=== PATIENT | male | born 1965 | race African-American/Black ===

== ENCOUNTER 2019-07-16 09:42 | Inpatient (IN) | payer OTHER ==
[~2019-07-16] VITALS: Ht 182.9 cm; Wt 111.0 kg
[2019-07-16] VITALS (15 sets, daily range): BP systolic 101–128; BP diastolic 64–81
[~2019-07-16 09:42] MED LIST: ATOR20TA PO; Aspirin PO; INSU100I17 SQ; INSU100I27 SQ; LISI5TAB PO; METF500T PO
--- NOTE | 2019-07-16 10:13 | RAD ---
PORTABLE CHEST 1V 07/16/2019 9:53 AM INDICATION: Fever, cough and shortness of air COMPARISON: None available TECHNIQUE: Portable frontal view of the chest is provided. FINDINGS: The cardiomediastinal silhouette is within normal limits. Patchy consolidative changes are identified involving the left upper lobe and lingula with likely involvement of the left lower lobe. No pleural effusions, pulmonary vascular congestion or pneumothorax. No suspicious osseous abnormality. IMPRESSION: Consolidative processes within the left upper lobe, lingula and possibly the left lower lobe may represent multifocal pneumonia. Recommend short term follow-up radiographs to ensure resolution. Electronically signed by: Natty Valencia MD (07/16/2019 10:09 AM) [facility]
[2019-07-16] MEDS ORDERED: cefTRIAXone IV Push 1 GM VIAL. IVP ONE (10:15)
[2019-07-16] MEDS ORDERED: IV NORMAL SALINE 1000ML BAG 1,000 ML IV ONE (10:15)
[2019-07-16] MEDS ORDERED: ACETAMINOPHEN 500 MG TABLET PO ONE (10:15)
[2019-07-16] MEDS ORDERED: AZITHRMYCN 500MG IVPB FOR OMNI 250 ML IV ONE (10:15)
[2019-07-16] MEDS ORDERED: IBUPROFEN 400 MG TABLET. PO ONE ×2 (10:15→11:00)
[2019-07-16 10:42] LABS: BASO # 0.1 x10^3/uL (0.0-0.2); BASO % 1 % (0-3); EOS % 0 % (0-3); HEMATOCRIT 41.9 % (39.0-53.0); HEMOGLOBIN 14.7 g/dL (13.0-17.5); LYMPH # 0.9 x10^3/uL (1.0-4.8); LYMPH % 4 % (24-48); MEAN CORPUSCULAR HEMOGLOBIN 31 pg (25-35); MEAN CORPUSCULAR HGB CONC 35 g/dL (31-37); MEAN CORPUSCULAR VOLUME 89 fL (79-100); MONO # 0.9 x10^3/uL (0.0-1.1); MONO % 4 % (0-9); NEUT # 18.4 x10^3/uL (1.8-7.7); NEUT % 91 % (31-73); PLATELET COUNT 207 x10^3/uL (140-400); WHITE BLOOD COUNT 20.3 x10^3/uL (4.0-11.0)
--- NOTE | 2019-07-16 10:49 | PDOC1 ---
History and Physical Date of Admission Date of Admission DATE: 07/16/19 TIME: 10:46 Identification/Chief Complaint Chief Complaint seen in er with fever, cough 53 year old male who presented to ER by EMS due to left-sided chest pain since this morning. Patient had not been feeling well for the last 3-day with cough, fever and chill. // pain on the left side of chest, patient had not been able to take it medication for the last 3 days. history of hypertension diabetic. cxr concerning for pneumonia Past Medical History Past Medical History Past Medical History Cardiovascular: HTN Past Surgical History Past Surgical History TENDON SURGERY TO RIGHT HAND Family History Family History Reviewed,pertinent for DM in father Social History Smoke: <1 pack per day ALCOHOL: social Drugs: None Cardiovascular: HTN Family History Family History: Hypertension Social History Smoke: No ALCOHOL: none Drugs: None Current Medications Current Medications Current Medications Sodium Chloride 1,000 ml @ 1,000 mls/hr 1X ONCE IV Last administered on 07/16/19at 10:22; Start 07/16/19 at 10:15; Stop 07/16/19 at 11:14 Ceftriaxone Sodium (Rocephin) 1 gm 1X ONCE IVP Last administered on 07/16/19at 10:25; Start 07/16/19 at 10:15; Stop 07/16/19 at 10:17; Status DC Azithromycin 250 ml @ 250 mls/hr 1X ONCE IV Last administered on 07/16/19at 10:15; Start 07/16/19 at 10:15; Stop 07/16/19 at 11:14 Acetaminophen (Tylenol) 1,000 mg 1X ONCE PO Last administered on 07/16/19at 10:25; Start 07/16/19 at 10:15; Stop 07/16/19 at 10:17; Status DC Ibuprofen (Motrin) 800 mg 1X ONCE PO Last administered on 07/16/19at 10:25; Start 07/16/19 at 10:15; Stop 07/16/19 at 10:17; Status DC Active Scripts Active Glucophage (Metformin Hcl) 500 Mg Tablet 500 Mg PO BIDWMEALS Prinivil (Lisinopril) 5 Mg Tablet 10 Mg PO DAILY Levemir Flextouch (Insulin Detemir) 300 Units/3 Ml Insuln.pen 28 Units SQ QHS Novolog Flexpen (Insulin Aspart) 300 Units/3 Ml Insuln.pen 18 Units SQ TIDAC [Aspirin] 81 MG Tablet.dr 81 Mg PO DAILYWBKFT Lipitor (Atorvastatin Calcium) 20 Mg Tablet 20 Mg PO QHS Allergies Allergies: Coded Allergies: No Known Drug Allergies (Unverified , 08/02/14) ROS Review of System Review of Systems: Constitutional: Positive for fever or chills. [] Eyes: Denies change in visual acuity. [] HENT: Denies nasal congestion or sore throat. [] Respiratory: Positive for cough or shortness of breath. [] Cardiovascular: Positive for chest pain, no edema. [] GI: Denies abdominal pain, nausea, vomiting, bloody stools or diarrhea. [] : Denies dysuria. [] Musculoskeletal: Denies back pain or joint pain. [] Integument: Denies rash. [] Neurologic: Denies headache, focal weakness or sensory changes. [] Endocrine: Denies polyuria or polydipsia. [] Lymphatic: Denies swollen glands. [] Psychiatric: Denies depression or anxiety. [] 14 pt ros otherwise neg General: YES: Chills, Fatigue, Malaise ALLERGY AND IMMUNOLOGY: No: Hives, Insect Bite Sensitivity, Itchy/Watery Eyes, Nasal Congestion, Post Nasal Drip, Seasonal Allergies, Other Respiratory: YES: Cough, Shortness of breath, SOB with excertion Gastrointestinal: No Nausea, No Vomiting, No Abdominal Pain, No Diarrhea, No Constipation, No Melena, No Hematochezia, No Other Physical Exam Physical Exam Constitutional: Well developed, well nourished, mild acute distress, toxic appearance. [] HENT: Normocephalic, atraumatic, bilateral external ears normal, oropharynx moist, no oral exudates, nose normal. [] Eyes: PERRLA, EOMI, conjunctiva normal, no discharge. [] Neck: Normal range of motion, no tenderness, supple, no stridor. [] Cardiovascular:sinus tachycardia, regular rhythm, no murmur [] Lungs & Thorax: crackles at lung bases, air movement on left lung, tachypnic. Abdomen: Bowel sounds normal, soft, no tenderness, no masses, no pulsatile masses. [] Skin: Warm, dry, no erythema, no rash. [] Back: No tenderness, no CVA tenderness. [] Extremities: No tenderness, no cyanosis, no clubbing, ROM intact, no edema. [] Neurologic: Alert and oriented X 3, weak , normal motor function, normal sensory function, no focal deficits noted. [] Psychologic: Affect normal, judgment normal, mood normal. [] General: Cooperative, mild distress Abdomen: Soft Rectal Exam: not examined Extremities: No cyanosis Neuro: Cranial nerves 3-12 NL Labs Labs Laboratory Tests Test 07/16/19 10:15 White Blood Count 20.3 x10^3/uL (4.0-11.0) Red Blood Count 4.70 x10^6/uL (4.30-5.70) Hemoglobin 14.7 g/dL (13.0-17.5) Hematocrit 41.9 % (39.0-53.0) Mean Corpuscular Volume 89 fL (79-100) Mean Corpuscular Hemoglobin 31 pg (25-35) Mean Corpuscular Hemoglobin Concent 35 g/dL (31-37) Red Cell Distribution Width 13.0 % (11.5-14.5) Platelet Count 207 x10^3/uL (140-400) Neutrophils (%) (Auto) 91 % (31-73) Lymphocytes (%) (Auto) 4 % (24-48) Monocytes (%) (Auto) 4 % (0-9) Eosinophils (%) (Auto) 0 % (0-3) Basophils (%) (Auto) 1 % (0-3) Neutrophils # (Auto) 18.4 x10^3/uL (1.8-7.7) Lymphocytes # (Auto) 0.9 x10^3/uL (1.0-4.8) Monocytes # (Auto) 0.9 x10^3/uL (0.0-1.1) Eosinophils # (Auto) 0.0 x10^3/uL (0.0-0.7) Basophils # (Auto) 0.1 x10^3/uL (0.0-0.2) Laboratory Tests Test 07/16/19 10:15 White Blood Count 20.3 x10^3/uL (4.0-11.0) Red Blood Count 4.70 x10^6/uL (4.30-5.70) Hemoglobin 14.7 g/dL (13.0-17.5) Hematocrit 41.9 % (39.0-53.0) Mean Corpuscular Volume 89 fL (79-100) Mean Corpuscular Hemoglobin 31 pg (25-35) Mean Corpuscular Hemoglobin Concent 35 g/dL (31-37) Red Cell Distribution Width 13.0 % (11.5-14.5) Platelet Count 207 x10^3/uL (140-400) Neutrophils (%) (Auto) 91 % (31-73) Lymphocytes (%) (Auto) 4 % (24-48) Monocytes (%) (Auto) 4 % (0-9) Eosinophils (%) (Auto) 0 % (0-3) Basophils (%) (Auto) 1 % (0-3) Neutrophils # (Auto) 18.4 x10^3/uL (1.8-7.7) Lymphocytes # (Auto) 0.9 x10^3/uL (1.0-4.8) Monocytes # (Auto) 0.9 x10^3/uL (0.0-1.1) Eosinophils # (Auto) 0.0 x10^3/uL (0.0-0.7) Basophils # (Auto) 0.1 x10^3/uL (0.0-0.2) Images Images PORTABLE CHEST 1V 07/16/2019 9:53 AM INDICATION: Fever, cough and shortness of air COMPARISON: None available TECHNIQUE: Portable frontal view of the chest is provided. FINDINGS: The cardiomediastinal silhouette is within normal limits. Patchy consolidative changes are identified involving the left upper lobe and lingula with likely involvement of the left lower lobe. No pleural effusions, pulmonary vascular congestion or pneumothorax. No suspicious osseous abnormality. IMPRESSION: Consolidative processes within the left upper lobe, lingula and possibly the left lower lobe may represent multifocal pneumonia. Recommend short term follow-up radiographs to ensure resolution. Electronically signed by: Campbell Valencia MD (07/16/2019 10:09 AM) [facility] DICTATED and SIGNED BY: CAMPBELL VALENCIA MD DATE: 07/16/19 1009 VTE Prophylaxis Ordered VTE Prophylaxis Devices: No VTE Pharmacological Prophylaxi: Yes Assessment/Plan Assessment/Plan IMPRESSION: Consolidative processes within the left upper lobe, lingula and possibly the left lower lobe // multifocal pneumonia. acute hypoxic resp failure concern for COVID-19 during community pandemic acute renal failure fever SEPSIS Fever and leukocytosis Acute metabolic encephalopathy BERTIN Transaminitis Diabetes Hypertension Obesity Sleep apnea MILD EVEVATION TROPONIN I plan admit icu bed blood cultures pulm consult dvt prophylaxis o2 support covid 19 screen emperic iv rocephin, zithromax add iv zyvox consult nephrology urinary legionalla screen strep pneumonia AG URINARY ID CONSULT Cardiology consult trend troponin i 48 min cc time Justicifation of Admission Dx: Justifications for Admission: Justification of Admission Dx: Yes Respiratory Failure: Severe Resp Distress Aspiration Pneumonia: Hypoxemia Comminuty Aquired Pneumonia: Hypoxemia Chronic Renal Failure: Electrolyte Abnormality Sepsis: Altered Mental Status Acute COPD Exacerbation: Acute COPD Exacerbation [place]: Acute NSTEMI JERROD CAMPOS MD Jul 16, 2019 10:49
[2019-07-16] MEDS ORDERED: IV NORMAL SALINE 1000ML BAG 1,000 ML IV SCH ×2 (10:53→10:58)
--- NOTE | 2019-07-16 10:58 | PHYS DOC ---
Past Medical History Past Medical History: Diabetes-Type II, Hypertension Past Surgical History: No Surgical History Additional Past Surgical Histo: TENDON SURGERY TO RIGHT HAND Smoking Status: Former Smoker Alcohol Use: Occasionally Drug Use: None General Adult EDM: Chief Complaint: SHORTNESS OF BREATH HPI: HPI: Patient is a 53 year old male who presented to ER by EMS due to left-sided chest pain since this morning. Patient had not been feeling well for the last 3-day with cough, fever and chill. She said the pain on the left side of chest, patient had not been able to take it medication for the last 3 days. Patient has history of hypertension diabetic. Review of Systems: Review of Systems: Constitutional: Positive for fever or chills. [] Eyes: Denies change in visual acuity. [] HENT: Denies nasal congestion or sore throat. [] Respiratory: Positive for cough or shortness of breath. [] Cardiovascular: Positive for chest pain, no edema. [] GI: Denies abdominal pain, nausea, vomiting, bloody stools or diarrhea. [] : Denies dysuria. [] Musculoskeletal: Denies back pain or joint pain. [] Integument: Denies rash. [] Neurologic: Denies headache, focal weakness or sensory changes. [] Endocrine: Denies polyuria or polydipsia. [] Lymphatic: Denies swollen glands. [] Psychiatric: Denies depression or anxiety. [] Heart Score: HEART Score for Chest Pain: HEART Score for Chest Pain Response (Comments) Value History Moderately Suspicious 1 Age >45 - < 65 1 Risk Factors >3 Risk Factors or Hx CAD 2 Troponin >1-<3x Normal Limit 1 Total 5 Risk Factors: Risk Factors: DM, Current or recent (<one month) smoker, HTN, HLP, family history of CAD, obesity. Risk Scores: Score 0 - 3: 2.5% MACE over next 6 weeks - Discharge Home Score 4 - 6: 20.3% MACE over next 6 weeks - Admit for Clinical Observation Score 7 - 10: 72.7% MACE over next 6 weeks - Early Invasive Strategies Current Medications: Current Medications Medications (Trade) Dose Ordered Sig/Joan Start Time Stop Time Status Last Admin Dose Admin Acetaminophen (Tylenol) 1,000 mg 1X ONCE 07/16/19 10:15 07/16/19 10:17 DC 07/16/19 10:25 1,000 MG Al Hydroxide/Mg Hydroxide (Mylanta Plus Xs) 30 ml PRN DAILY PRN 07/16/19 11:00 UNV Albuterol/ Ipratropium (Duoneb) 3 ml Q4H 07/16/19 11:00 UNV Azithromycin 250 ml @ 250 mls/hr DAILY07 07/17/19 07:00 UNV Ceftriaxone Sodium (Rocephin) 1 gm DAILY07 07/17/19 07:00 UNV Clonidine HCl (Catapres) 0.1 mg PRN Q6HRS PRN 07/16/19 11:00 UNV Docusate Sodium (Colace) 100 mg PRN BID PRN 07/16/19 11:00 UNV Enoxaparin Sodium (Lovenox 40mg Syringe) 40 mg Q24H 07/16/19 11:00 UNV Guaifenesin (Robitussin) 200 mg PRN Q4HRS PRN 07/16/19 11:00 UNV Ibuprofen (Motrin) 800 mg 1X ONCE 07/16/19 11:00 07/16/19 11:01 Ondansetron HCl (Zofran) 4 mg PRN Q4HRS PRN 07/16/19 11:00 UNV Sodium Monofluorophosphate (Fleet Adult) 133 ml PRN DAILY PRN 07/16/19 11:00 UNV Sodium Chloride 1,000 ml @ 100 mls/hr Q10H 07/16/19 10:53 UNV Sodium Chloride (Normal Saline Flush) 3 ml QSHIFT PRN 07/16/19 11:00 UNV Allergies: Allergies: Allergies Coded Allergies Type Severity Reaction Last Updated Verified No Known Drug Allergies 08/02/14 No Physical Exam: PE: Constitutional: Well developed, well nourished, mild acute distress, toxic appearance. [] HENT: Normocephalic, atraumatic, bilateral external ears normal, oropharynx moist, no oral exudates, nose normal. [] Eyes: PERRLA, EOMI, conjunctiva normal, no discharge. [] Neck: Normal range of motion, no tenderness, supple, no stridor. [] Cardiovascular:sinus tachycardia, regular rhythm, no murmur [] Lungs & Thorax: crackles at lung bases, air movement on left lung, tachypnic. Abdomen: Bowel sounds normal, soft, no tenderness, no masses, no pulsatile masses. [] Skin: Warm, dry, no erythema, no rash. [] Back: No tenderness, no CVA tenderness. [] Extremities: No tenderness, no cyanosis, no clubbing, ROM intact, no edema. [] Neurologic: Alert and oriented X 3, normal motor function, normal sensory function, no focal deficits noted. [] Psychologic: Affect normal, judgement normal, mood normal. [] Current Patient Data: Labs: Laboratory Tests Test 07/16/19 10:15 White Blood Count 20.3 x10^3/uL (4.0-11.0) H Red Blood Count 4.70 x10^6/uL (4.30-5.70) Hemoglobin 14.7 g/dL (13.0-17.5) Hematocrit 41.9 % (39.0-53.0) Mean Corpuscular Volume 89 fL (79-100) Mean Corpuscular Hemoglobin 31 pg (25-35) Mean Corpuscular Hemoglobin Concent 35 g/dL (31-37) Red Cell Distribution Width 13.0 % (11.5-14.5) Platelet Count 207 x10^3/uL (140-400) Neutrophils (%) (Auto) 91 % (31-73) H Lymphocytes (%) (Auto) 4 % (24-48) L Monocytes (%) (Auto) 4 % (0-9) Eosinophils (%) (Auto) 0 % (0-3) Basophils (%) (Auto) 1 % (0-3) Neutrophils # (Auto) 18.4 x10^3/uL (1.8-7.7) H Lymphocytes # (Auto) 0.9 x10^3/uL (1.0-4.8) L Monocytes # (Auto) 0.9 x10^3/uL (0.0-1.1) Eosinophils # (Auto) 0.0 x10^3/uL (0.0-0.7) Basophils # (Auto) 0.1 x10^3/uL (0.0-0.2) Platelet Estimate Pending Laboratory Tests 07/16/19 10:15 Vital Signs: Vital Signs Date Time Temp Pulse Resp B/P (MAP) Pulse Ox O2 Delivery O2 Flow Rate FiO2 07/16/19 09:45 103.2 128 44 139/84 (102) 92 Room Air 103.2 EKG: EKG: EKG was done at 953, heart rate of 129 bpm, some ST segment elevation in V2 and V3, discussed with service desk agent Dr. Daly, who did review the EKG himself SUSPECTED THAT IT IS NOT STEMI. Radiology/Procedures: Radiology/Procedures: [][facility] [address] [id number] IMAGING REPORT Signed PATIENT: DANAY AUGUSTE ACCOUNT: [id number] : 1965 LOCATION: ER AGE: 53 SEX: M EXAM STATUS: PRE ER ORD. PHYSICIAN: DEBORAH MANN DO REASON: fever, cough, soa, chest pain PROCEDURE: PORTABLE CHEST 1V PORTABLE CHEST 1V 07/16/2019 9:53 AM INDICATION: Fever, cough and shortness of air COMPARISON: None available TECHNIQUE: Portable frontal view of the chest is provided. FINDINGS: The cardiomediastinal silhouette is within normal limits. Patchy consolidative changes are identified involving the left upper lobe and lingula with likely involvement of the left lower lobe. No pleural effusions, pulmonary vascular congestion or pneumothorax. No suspicious osseous abnormality. IMPRESSION: Consolidative processes within the left upper lobe, lingula and possibly the left lower lobe may represent multifocal pneumonia. Recommend short term follow-up radiographs to ensure resolution. Electronically signed by: Campbell Walls MD (07/16/2019 10:09 AM) [facility] DICTATED and SIGNED BY: CAMPBELL WALLS MD DATE: 07/16/19 1009 Course & Med Decision Making: Course & Med Decision Making Pertinent Labs and Imaging studies reviewed. (See chart for details) Patient is a 53-year-old man who was found to have pneumonia, sepsis, acute renal failure , left-sided chest pain, with high temperature 103, suspect COVID19 infection, will admit him to ICU. Discussed with service desk agent continuous pillowcase cutter, Dr. Daly, hospitalist Dr. Campos. COVID-19 CRITERIA: The patient was evaluated during the global COVID-19 pandemic, and that diagnosis was suspected/considered upon their initial presentation. Their evaluation, treatment and testing was consistent with current guidelines for patients who present with complaints or symptoms that may be related to COVID-19. Critical care time was [60] minutes which includes time at bedside, spent in discussion of patient's care with specialist and/or family members, with interpretation of laboratory and/or radiological studies and is exclusive of procedures. Dragon Disclaimer: Dragon Disclaimer: This electronic medical record was generated, in whole or in part, using a voice recognition dictation system. Departure Departure Impression: Primary Impression: Pneumonia Additional Impressions: Acute renal failure Suspected 2018-nCoV infection Hypoxemia Sepsis Disposition: ADMITTED INPATIENT Admitting Physician: CHONG (DR. CAMPOS) Condition: CRITICAL Referrals: NON,STAFF (PCP) Justicifation of Admission Dx: Justifications for Admission: Justification of Admission Dx: Yes Comminuty Aquired Pneumonia: Hypoxemia Chronic Renal Failure: Hypertension Sepsis: End-Organ Dysfunction DEBORAH MANN DO Jul 16, 2019 10:58
[2019-07-16 10:59] LABS: CALCIUM 8.1 mg/dL (8.5-10.1); CREATININE 4.9 mg/dL (0.7-1.3); GFR 15.1; POTASSIUM 3.7 mmol/L (3.5-5.1)
[2019-07-16] MEDS ORDERED: DOCUSATE SODIUM 100 MG CAPSULE. PO PRN (11:00)
[2019-07-16] MEDS ORDERED: guaiFENesin ORAL 200 MG/10 ML LIQUID. PO PRN (11:00)
[2019-07-16] MEDS ORDERED: MAG HYDROX/ALUMINUM HYD/SIMETH 30 ML ORAL.SUSP PO PRN (11:00)
[2019-07-16] MEDS ORDERED: 0.9 % SODIUM CHLORIDE 10 ML DISP.SYRIN. IV PRN (11:00)
[2019-07-16] MEDS ORDERED: SODIUM PHOSPHATES 19/7GM 133 ML ENEMA. PR PRN (11:00)
[2019-07-16] MEDS ORDERED: ONDANSETRON PF 4 MG/2 ML VIAL. IV PRN ×2 (11:00)
[2019-07-16 11:03] LABS: PROTHROMBIN TIME PATIENT 15.2 SEC (11.7-14.0)
[2019-07-16 11:14] LABS: ALBUMIN 2.9 g/dL (3.4-5.0); ALBUMIN/GLOBULIN RATIO 0.8 (1.0-1.7); MAGNESIUM 1.4 mg/dL (1.8-2.4); TOTAL BILIRUBIN 0.5 mg/dL (0.2-1.0); TOTAL PROTEIN 6.6 g/dL (6.4-8.2)
[2019-07-16 11:28] LABS: D-DIMER 4.88 ug/mlFEU (0.00-0.50)
[2019-07-16 11:31] LABS: % BANDS 14 % (0-9); % LYMPHS 10 % (24-48); % MONOS 1 % (0-10); % SEGS 75 % (35-66); PLT ESTIMATE ADEQUATE (ADEQUATE); TOXIC GRANULATION MOD
[2019-07-16] MEDS ORDERED: IPRATRPIUM/ALBUTEROL 0.5/2.5MG 3 ML NEBU. NEB SCH (12:00)
[2019-07-16] MEDS: INSULIN LISPRO 300 UNITS/3 ML VIAL. SQ SCH ×2 (12:00→18:00)
[2019-07-16] MEDS ORDERED: DEXTROSE 50% 25 GM / 50ML DISP.SYRIN. IV PRN (12:00)
[2019-07-16] MEDS: IV NORMAL SALINE 1000ML BAG 1,000 ML IV SCH ×2 (13:00→21:00)
--- NOTE | 2019-07-16 13:00 | CONS ---
DATE OF CONSULTATION: PULMONARY CONSULTATION ATTENDING PHYSICIAN: Irwin Alvarado MD REASON FOR CONSULTATION: Fever, pneumonia, sepsis. HISTORY OF PRESENT ILLNESS: The patient is 53-year-old male who has diabetes and hypertension. He is obese with a BMI of 38.9. He was brought into the Emergency Room with left-sided chest pain. He has a 3-day history of a cough, fever and chills. The patient has not been able to take his medications for the last 3 days. He drives a truck. I am not sure whether he had any exposure to COVID-19. He was noted to have a chest x-ray, which was reviewed by me, which showed extensive consolidation involving the left upper lobe lingula and probably left lower lobe as well. He had marked leukocytosis. He was also in BERTIN and had metabolic acidosis. His liver enzymes are elevated as well along with mildly elevation of troponin and also elevated troponin. Due to COVID pandemia, I did a tele consultation on him; however, he was confused and disoriented and he was not able to answer any questions appropriately. He appeared mildly tachypneic. No obvious rash seen. PAST MEDICAL HISTORY: History of diabetes and hypertension. I am not sure about the details of tobacco history or drug history. PAST SURGICAL HISTORY: Including tendon surgery to the right hand. ALLERGIES: None. MEDICATIONS: That were initiated were antibiotic azithromycin and Rocephin along with Lovenox for DVT prophylaxis. REVIEW OF SYSTEMS: Unable to obtain from the patient due to his encephalopathy. FAMILY HISTORY: Unobtainable. PHYSICAL EXAMINATION: VITAL SIGNS: His T-max is 103.2, pulse ox is 95% on 2 liters. GENERAL: He appears confused, disoriented and is unable to answer any questions. He appears mildly tachypneic. No obvious JVD on visual exam. He is obese. In no obvious rash. LABORATORY DATA: Labs were seen. White cell count 20.3, hemoglobin 14.7 and platelets are 207. His BUN and creatinine 55 and 4.9. ProBNP 958. Albumin 2.9, magnesium 1.4. His bicarbonate was 20. Sodium 130. IMPRESSION: 1. Acute hypoxic respiratory failure secondary to sepsis. 2. Metabolic encephalopathy secondary to sepsis. 3. Marked consolidation in the left lower lobe along with fever and leukocytosis. Highly consistent with pneumonia, could be aspiration related due to altered mental status. COVID-19 is also suspected with multisystem organ involvement. 4. Hyponatremia. 5. Acute kidney injury with metabolic acidosis. 6. Hypomagnesemia. 7. Mildly increased troponin level. 8. Abnormal D-dimer. Could be nonspecific. However, we will do venous Dopplers once COVID test is negative. 9. Marked leukocytosis secondary to pneumonia. RECOMMENDATIONS: 1. Continue with present oxygen. 2. Obtain ABGs to rule out any hypercapnia and if he has high pCO2, then we will try Vapotherm versus BiPAP depending on if COVID is negative. 3. COVID test is being obtained and is pending. 4. IV hydration and monitor renal function closely. 5. Follow renal recommendations. 6. Follow ID recommendations. 7. Obtain all cultures. 8. Once COVID is ruled out, they will do a noncontrast CT chest to better assess for pneumonia. 9. Monitor LFTs. May need GI consult and recommendation. 10. DVT prophylaxis. 11. Replace magnesium. 12. Venous Dopplers of lower extremities. 13. Consult Cardiology regarding abnormal troponin. This patient was evaluated during the global COVID-19 pandemic and diagnosis was suspected and was considered upon initial presentation. There evaluation and treatment and testing was consistent with current guidelines for patients, who presented with complaints of symptoms that may be related to COVID-19. Total critical care time 40 minutes, which includes time spent with review of the chart, labs, x-rays and decision making and discussion with RN. ESCOBAR SERVIN MD DR: MANOLO/lyndon JOB#: [id number] / [id number] [place]
[2019-07-16] MEDS ORDERED: PIP/TAZO PER PHARMACY MC PRN (14:00)
--- NOTE | 2019-07-16 14:01 | PDOC2 ---
CONSULT Date of Consult Date of Consult DATE: 07/16/19 TIME: 13:55 Reason for Consult Reason for Consult: Chest discomfort and shortness of breath Referring Physician Referring Physician: Dr. Alvarado Identification/Chief Complaint Chief Complaint Shortness of breath Source Source: Chart review, Patient History of Present Illness Reason for Visit: The patient is a 53-year-old male who reports a 2 to 3-day history of increasing shortness of breath. Patient has also had a fever up to 102. This morning his shortness of breath increased and he also developed some chest discomfort. He was evaluated in the emergency room and chest x-ray showed probable multi lobar pneumonia on the left. Lab testing was significant for a white count of 20.3 a glucose of 493 BUN of 55 creatinine of 4.9 d-dimer 4.88 and a troponin minimally elevated 0.113. EKG showed a sinus rhythm with nonspecific ST segment changes in V2 and V3. Past Medical History Cardiovascular: HTN Endocrine: Diabetes Past Surgical History Past Surgical History: Other (Tendon surgery on his right hand) Family History Family History: Diabetes Social History Quit ALCOHOL: social Drugs: None Current Problem List Problem List Problems Medical Problems: (1) Acute renal failure Status: Acute (2) Hypoxemia Status: Acute (3) Sepsis Status: Acute (4) Severe sepsis Status: Acute (5) Suspected 2019-nCoV infection Status: Acute Current Medications Current Medications Current Medications Sodium Chloride 1,000 ml @ 1,000 mls/hr 1X ONCE IV Last administered on 07/16/19at 10:22; Start 07/16/19 at 10:15; Stop 07/16/19 at 11:14; Status DC Ceftriaxone Sodium (Rocephin) 1 gm 1X ONCE IVP Last administered on 07/16/19at 10:25; Start 07/16/19 at 10:15; Stop 07/16/19 at 10:17; Status DC Azithromycin 250 ml @ 250 mls/hr 1X ONCE IV Last administered on 07/16/19at 10:15; Start 07/16/19 at 10:15; Stop 07/16/19 at 11:14; Status DC Acetaminophen (Tylenol) 1,000 mg 1X ONCE PO Last administered on 07/16/19at 10:25; Start 07/16/19 at 10:15; Stop 07/16/19 at 10:17; Status DC Ibuprofen (Motrin) 800 mg 1X ONCE PO Last administered on 07/16/19at 10:25; Start 07/16/19 at 10:15; Stop 07/16/19 at 10:17; Status DC Ibuprofen (Motrin) 800 mg 1X ONCE PO ; Start 07/16/19 at 11:00; Stop 07/16/19 at 11:03; Status DC Ceftriaxone Sodium (Rocephin) 1 gm DAILY07 IVP ; Start 07/17/19 at 07:00 Azithromycin 250 ml @ 250 mls/hr DAILY07 IV ; Start 07/17/19 at 07:00 Sodium Chloride (Normal Saline Flush) 3 ml QSHIFT PRN IV AFTER MEDS AND BLOOD DRAWS; Start 07/16/19 at 11:00 Sodium Chloride 1,000 ml @ 100 mls/hr Q10H IV ; Start 07/16/19 at 10:53; Stop 07/16/19 at 12:57; Status DC Ondansetron HCl (Zofran) 4 mg PRN Q4HRS PRN IV NAUSEA/VOMITING; Start 07/16/19 at 11:00 Al Hydroxide/Mg Hydroxide (Mylanta Plus Xs) 30 ml PRN DAILY PRN PO HEARTBURN / GAS; Start 07/16/19 at 11:00 Clonidine HCl (Catapres) 0.1 mg PRN Q6HRS PRN PO SBP>160 OR DBP>90; Start 07/16/19 at 11:00 Sodium Monofluorophosphate (Fleet Adult) 133 ml PRN DAILY PRN [place] CONSTIPATION; Start 07/16/19 at 11:00 Docusate Sodium (Colace) 100 mg PRN BID PRN PO HARD STOOLS; Start 07/16/19 at 11:00 Albuterol/ Ipratropium (Duoneb) 3 ml Q4HRS NEB ; Start 07/16/19 at 12:00 Guaifenesin (Robitussin) 200 mg PRN Q4HRS PRN PO COUGH; Start 07/16/19 at 11:00 Enoxaparin Sodium (Lovenox 40mg Syringe) 40 mg Q24H SQ ; Start 07/16/19 at 11:00 Ondansetron HCl (Zofran) 4 mg PRN Q8HRS PRN IV NAUSEA/VOMITING; Start 07/16/19 at 11:00; Stop 07/17/19 at 10:59 Sodium Chloride 1,000 ml @ 125 mls/hr Q8H IV ; Start 07/16/19 at 10:58; Stop 07/16/19 at 12:57; Status DC Insulin Human Lispro (HumaLOG) 0-7 UNITS TIDWMEALS SQ ; Start 07/16/19 at 12:00 Dextrose (Dextrose 50%-Water Syringe) 12.5 gm PRN Q15MIN PRN IV SEE COMMENTS; Start 07/16/19 at 12:00 Sodium Chloride 1,000 ml @ 125 mls/hr Q8H IV ; Start 07/16/19 at 13:00 Active Scripts Active Glucophage (Metformin Hcl) 500 Mg Tablet 500 Mg PO BIDWMEALS Prinivil (Lisinopril) 5 Mg Tablet 10 Mg PO DAILY Levemir Flextouch (Insulin Detemir) 300 Units/3 Ml Insuln.pen 28 Units SQ QHS Novolog Flexpen (Insulin Aspart) 300 Units/3 Ml Insuln.pen 18 Units SQ TIDAC [Aspirin] 81 MG Tablet.dr 81 Mg PO DAILYWBKFT Lipitor (Atorvastatin Calcium) 20 Mg Tablet 20 Mg PO QHS Allergies Allergies: Coded Allergies: No Known Drug Allergies (Unverified , 08/02/14) ROS General: YES: Fatigue Respiratory: YES: Shortness of breath, SOB with excertion Cardiovascular: yes Chest Pain Physical Exam Physical Exam Discussion with the patient but PE was deferred at this time Vitals VITALS Vital Signs Date Time Temp Pulse Resp B/P (MAP) Pulse Ox O2 Delivery O2 Flow Rate FiO2 07/16/19 12:30 99.3 99 28 115/64 (81) 95 Nasal Cannula 3.0 99.3 Labs Labs Laboratory Tests Test 07/16/19 10:15 07/16/19 12:51 White Blood Count 20.3 x10^3/uL (4.0-11.0) Red Blood Count 4.70 x10^6/uL (4.30-5.70) Hemoglobin 14.7 g/dL (13.0-17.5) Hematocrit 41.9 % (39.0-53.0) Mean Corpuscular Volume 89 fL (79-100) Mean Corpuscular Hemoglobin 31 pg (25-35) Mean Corpuscular Hemoglobin Concent 35 g/dL (31-37) Red Cell Distribution Width 13.0 % (11.5-14.5) Platelet Count 207 x10^3/uL (140-400) Neutrophils (%) (Auto) 91 % (31-73) Lymphocytes (%) (Auto) 4 % (24-48) Monocytes (%) (Auto) 4 % (0-9) Eosinophils (%) (Auto) 0 % (0-3) Basophils (%) (Auto) 1 % (0-3) Neutrophils # (Auto) 18.4 x10^3/uL (1.8-7.7) Lymphocytes # (Auto) 0.9 x10^3/uL (1.0-4.8) Monocytes # (Auto) 0.9 x10^3/uL (0.0-1.1) Eosinophils # (Auto) 0.0 x10^3/uL (0.0-0.7) Basophils # (Auto) 0.1 x10^3/uL (0.0-0.2) Segmented Neutrophils % 75 % (35-66) Band Neutrophils % 14 % (0-9) Lymphocytes % 10 % (24-48) Monocytes % 1 % (0-10) Toxic Granulation Mod Platelet Estimate Adequate (ADEQUATE) Prothrombin Time 15.2 SEC (11.7-14.0) Prothromb Time International Ratio 1.2 (0.8-1.1) Activated Partial Thromboplast Time 36 SEC (24-38) Fibrinogen 1231 mg/dL (200-440) D-Dimer (Yulisa) 4.88 ug/mlFEU (0.00-0.50) Sodium Level 130 mmol/L (136-145) Potassium Level 3.7 mmol/L (3.5-5.1) Chloride Level 93 mmol/L (98-107) Carbon Dioxide Level 20 mmol/L (21-32) Anion Gap 17 (6-14) Blood Urea Nitrogen 55 mg/dL (8-26) Creatinine 4.9 mg/dL (0.7-1.3) Estimated GFR (Cockcroft-Gault) 15.1 BUN/Creatinine Ratio 11 (6-20) Glucose Level 493 mg/dL (70-99) Lactic Acid Level 1.8 mmol/L (0.4-2.0) Calcium Level 8.1 mg/dL (8.5-10.1) Magnesium Level 1.4 mg/dL (1.8-2.4) Total Bilirubin 0.5 mg/dL (0.2-1.0) Aspartate Amino Transf (AST/SGOT) 258 U/L (15-37) Alanine Aminotransferase (ALT/SGPT) 76 U/L (16-63) Alkaline Phosphatase 57 U/L (46-116) Troponin I Quantitative 0.116 ng/mL (0.000-0.055) EM-Yqm-L-Type Natriuretic Peptide 958 pg/mL (0-124) Total Protein 6.6 g/dL (6.4-8.2) Albumin 2.9 g/dL (3.4-5.0) Albumin/Globulin Ratio 0.8 (1.0-1.7) Lipase 106 U/L (73-393) Glucose (Fingerstick) 467 mg/dL (70-99) Laboratory Tests Test 07/16/19 10:15 07/16/19 12:51 White Blood Count 20.3 x10^3/uL (4.0-11.0) Red Blood Count 4.70 x10^6/uL (4.30-5.70) Hemoglobin 14.7 g/dL (13.0-17.5) Hematocrit 41.9 % (39.0-53.0) Mean Corpuscular Volume 89 fL (79-100) Mean Corpuscular Hemoglobin 31 pg (25-35) Mean Corpuscular Hemoglobin Concent 35 g/dL (31-37) Red Cell Distribution Width 13.0 % (11.5-14.5) Platelet Count 207 x10^3/uL (140-400) Neutrophils (%) (Auto) 91 % (31-73) Lymphocytes (%) (Auto) 4 % (24-48) Monocytes (%) (Auto) 4 % (0-9) Eosinophils (%) (Auto) 0 % (0-3) Basophils (%) (Auto) 1 % (0-3) Neutrophils # (Auto) 18.4 x10^3/uL (1.8-7.7) Lymphocytes # (Auto) 0.9 x10^3/uL (1.0-4.8) Monocytes # (Auto) 0.9 x10^3/uL (0.0-1.1) Eosinophils # (Auto) 0.0 x10^3/uL (0.0-0.7) Basophils # (Auto) 0.1 x10^3/uL (0.0-0.2) Segmented Neutrophils % 75 % (35-66) Band Neutrophils % 14 % (0-9) Lymphocytes % 10 % (24-48) Monocytes % 1 % (0-10) Toxic Granulation Mod Platelet Estimate Adequate (ADEQUATE) Prothrombin Time 15.2 SEC (11.7-14.0) Prothromb Time International Ratio 1.2 (0.8-1.1) Activated Partial Thromboplast Time 36 SEC (24-38) Fibrinogen 1231 mg/dL (200-440) D-Dimer (Yulisa) 4.88 ug/mlFEU (0.00-0.50) Sodium Level 130 mmol/L (136-145) Potassium Level 3.7 mmol/L (3.5-5.1) Chloride Level 93 mmol/L (98-107) Carbon Dioxide Level 20 mmol/L (21-32) Anion Gap 17 (6-14) Blood Urea Nitrogen 55 mg/dL (8-26) Creatinine 4.9 mg/dL (0.7-1.3) Estimated GFR (Cockcroft-Gault) 15.1 BUN/Creatinine Ratio 11 (6-20) Glucose Level 493 mg/dL (70-99) Lactic Acid Level 1.8 mmol/L (0.4-2.0) Calcium Level 8.1 mg/dL (8.5-10.1) Magnesium Level 1.4 mg/dL (1.8-2.4) Total Bilirubin 0.5 mg/dL (0.2-1.0) Aspartate Amino Transf (AST/SGOT) 258 U/L (15-37) Alanine Aminotransferase (ALT/SGPT) 76 U/L (16-63) Alkaline Phosphatase 57 U/L (46-116) Troponin I Quantitative 0.116 ng/mL (0.000-0.055) XJ-Pxa-H-Type Natriuretic Peptide 958 pg/mL (0-124) Total Protein 6.6 g/dL (6.4-8.2) Albumin 2.9 g/dL (3.4-5.0) Albumin/Globulin Ratio 0.8 (1.0-1.7) Lipase 106 U/L (73-393) Glucose (Fingerstick) 467 mg/dL (70-99) Images Images Chest x-ray with probable pneumonia Assessment/Plan Assessment/Plan 1. Respiratory failure secondary to probable pneumonia. Patient has been placed on antibiotics and is on oxygen. He has been evaluated by the pulmonary service. He is considered to be at risk for COVID and testing is in process. At this time we will continue present treatment. 2. Acute kidney injury. Creatinine elevated at 4.9. Patient receiving fluids. Renal consult pending. 3. Uncontrolled diabetes. Glucose level 493. 4. Chest discomfort. Minimally elevated troponin at 0.116. EKG with nonspecific ST segment changes V2 and V3. At this time we will continue to treat underlying condition. Based on clinical course will determine cardiac work-up. 5. Elevated d-dimer 4.88. As noted above we will check lower extremity venous ultrasound studies when COVID testing available. Thank you for allowing us to participate in the care of your patient ALLISON FIGUEROA MD Jul 16, 2019 14:00
--- NOTE | 2019-07-16 14:07 | PDOC ---
Infectious Disease Note Vital Sign Vital Signs Vital Signs Date Time Temp Pulse Resp B/P (MAP) Pulse Ox O2 Delivery O2 Flow Rate FiO2 07/16/19 11:45 99.4 104 32 95 Nasal Cannula 2.0 99.4 07/16/19 11:40 132/78 (96) Labs Lab Laboratory Tests Test 07/16/19 10:15 White Blood Count 20.3 x10^3/uL (4.0-11.0) Red Blood Count 4.70 x10^6/uL (4.30-5.70) Hemoglobin 14.7 g/dL (13.0-17.5) Hematocrit 41.9 % (39.0-53.0) Mean Corpuscular Volume 89 fL (79-100) Mean Corpuscular Hemoglobin 31 pg (25-35) Mean Corpuscular Hemoglobin Concent 35 g/dL (31-37) Red Cell Distribution Width 13.0 % (11.5-14.5) Platelet Count 207 x10^3/uL (140-400) Neutrophils (%) (Auto) 91 % (31-73) Lymphocytes (%) (Auto) 4 % (24-48) Monocytes (%) (Auto) 4 % (0-9) Eosinophils (%) (Auto) 0 % (0-3) Basophils (%) (Auto) 1 % (0-3) Neutrophils # (Auto) 18.4 x10^3/uL (1.8-7.7) Lymphocytes # (Auto) 0.9 x10^3/uL (1.0-4.8) Monocytes # (Auto) 0.9 x10^3/uL (0.0-1.1) Eosinophils # (Auto) 0.0 x10^3/uL (0.0-0.7) Basophils # (Auto) 0.1 x10^3/uL (0.0-0.2) Segmented Neutrophils % 75 % (35-66) Band Neutrophils % 14 % (0-9) Lymphocytes % 10 % (24-48) Monocytes % 1 % (0-10) Toxic Granulation Mod Platelet Estimate Adequate (ADEQUATE) Prothrombin Time 15.2 SEC (11.7-14.0) Prothromb Time International Ratio 1.2 (0.8-1.1) Activated Partial Thromboplast Time 36 SEC (24-38) Fibrinogen 1231 mg/dL (200-440) D-Dimer (Yulisa) 4.88 ug/mlFEU (0.00-0.50) Sodium Level 130 mmol/L (136-145) Potassium Level 3.7 mmol/L (3.5-5.1) Chloride Level 93 mmol/L (98-107) Carbon Dioxide Level 20 mmol/L (21-32) Anion Gap 17 (6-14) Blood Urea Nitrogen 55 mg/dL (8-26) Creatinine 4.9 mg/dL (0.7-1.3) Estimated GFR (Cockcroft-Gault) 15.1 BUN/Creatinine Ratio 11 (6-20) Glucose Level 493 mg/dL (70-99) Lactic Acid Level 1.8 mmol/L (0.4-2.0) Calcium Level 8.1 mg/dL (8.5-10.1) Magnesium Level 1.4 mg/dL (1.8-2.4) Total Bilirubin 0.5 mg/dL (0.2-1.0) Aspartate Amino Transf (AST/SGOT) 258 U/L (15-37) Alanine Aminotransferase (ALT/SGPT) 76 U/L (16-63) Alkaline Phosphatase 57 U/L (46-116) Troponin I Quantitative 0.116 ng/mL (0.000-0.055) CG-Fej-G-Type Natriuretic Peptide 958 pg/mL (0-124) Total Protein 6.6 g/dL (6.4-8.2) Albumin 2.9 g/dL (3.4-5.0) Albumin/Globulin Ratio 0.8 (1.0-1.7) Lipase 106 U/L (73-393) Objective Assessment Sepsis POA Pneumonia r/o COVID-19 Fever and leukocytosis Acute encephalopathy BERTIN Transaminitis Diabetes Hypertension Obesity Sleep apnea Plan Plan of Care Broaden abx to Zyvox and Zosyn Continue azithromycin for atypical coverage Strep pnuemo/mycoplasma/legionella Ag f/u cultures Monitor lab values/temp Maintain aspiration precautions Airborne isolation till COVID r/o D/w nursing Critically ill Thank you [id number] Patient seen. Chart reviewed. Case discussed with COOPERATIVE EXTENSION AGENT. Agree with above plan/. RONALD KELLOGG APRN Jul 16, 2019 14:07 ELINA MARKHAM MD Jul 16, 2019 20:38
[2019-07-16] MEDS ORDERED: ALBUTEROL SULFATE 2.5 MG/3 ML NEBU. NEB PRN (14:15)
[2019-07-16 14:30] LABS: BILIRUBIN,URINE SMALL (NEG); CLARITY,URINE CLOUDY; COLOR,URINE AMBER; NITRITE,URINE NEGATIVE (NEG); PROTEIN,URINE 100 mg/dL (NEG-TRACE); UROBILINOGEN,URINE 0.2 mg/dL (0.2 mg/dL)
[2019-07-16 14:45] LABS: MYCOPLASMA PATIENT NEGATIVE (NEGATIVE)
--- NOTE | 2019-07-16 14:49 | CONS ---
DATE OF CONSULTATION: 07/16/2019 REFERRING PHYSICIAN: Dr. Alvarado. REASON FOR CONSULTATION: Pneumonia. HISTORY OF PRESENT ILLNESS: This patient is a 53-year-old -[place] male who is encephalopathic, unable to provide detailed history of present illness, past medical history, or review of systems. According to the medical record and nursing staff, he was brought to the ER via ambulance for increased shortness of air, chest pain and fever. He had not been feeling well over the last 3 days or so. He lost his appetite and was not taking his medications. On arrival to the ER, he had a temperature of 103.2. He was tachycardic and tachypneic. He required supplemental oxygen. Chest x-ray showed patchy consolidative changes, involving the left upper lobe and lingula with likely involvement of the left lower lobe. No pleural effusions, pulmonary vascular congestion or pneumothorax. He is started on ceftriaxone and azithromycin and admitted to the Intensive Care Unit. He denies known exposure to COVID. Denies hospitalizations or antibiotic use within the last 6 months. PAST MEDICAL HISTORY: Diabetes, hypertension, sleep apnea, obesity. PAST SURGICAL HISTORY: Tendon repair, right hand. FAMILY HISTORY: Diabetes. ALLERGIES: No known drug allergies. SOCIAL HISTORY: He lives in [place], [place]. 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 He is a former smoker and drinks alcohol occasionally. MEDICATIONS: Reviewed on APR and includes ceftriaxone, azithromycin. REVIEW OF SYSTEMS: Unobtainable as the patient is encephalopathic. PHYSICAL EXAMINATION: VITAL SIGNS: Temperature 99.4, T-max 103.2, blood pressure 132/78, heart rate 104, respiratory rate 32, pulse oximetry 95% on 2 liters, BMI 38.9. GENERAL: The patient is propped up in bed, minimally responsive to verbal. HEENT: Pupils equally round. Normal conjunctivae. Oropharynx pink. No lesions seen. NECK: Supple. LUNGS: Diminished aeration. No accessory muscle use. CARDIAC: S1 and S2 regular. ABDOMEN: Obese, soft. No grimace or guarding to palpation. Bowel sounds present. GENITOURINARY: Indwelling Dennison in place. EXTREMITIES: No gross edema or cyanosis. SKIN: Warm to touch. No signs of rash. NEUROLOGIC: Arouses to gentle tactile stimulation. Attention span decreased. He has a couple of peripheral IVs. LABORATORY DATA: Today's WBC 20.3, hemoglobin 14.7, platelets 207,000, segs 75%, bands 14%, lymphocytes 10%. Sodium 130, potassium 3.7, creatinine 4.9, BUN 55. Anion gap 17, glucose 493. Lactic acid 1.8, total bilirubin 0.5, AST 258, ALT 76. Troponin 0.116. Alkaline phosphatase 57. BNP 958, albumin 2.9, lipase 106. Urinalysis and blood cultures pending. Chest x-ray per HPI. IMPRESSION: 1. Sepsis present on admission. 2. Pneumonia. 3. Rule out COVID. 4. Fever and leukocytosis. 5. Acute encephalopathy. 6. Acute kidney injury. 7. Transaminitis. 8. Diabetes. 9. Hypertension. 10. Obesity. 11. Sleep apnea. PLAN: 1. Recommend broadening antibiotics to Zyvox and Zosyn, renally dosed. 2. Continue the azithromycin for atypical coverage. 3. Check strep pneumo, mycoplasma and legionella antigens. 4. COVID-19 pending. 5. Follow up on culture results. 6. Monitor laboratory values and temperature. 7. Maintain aspiration precautions. 8. Airborne isolation until COVID ruled out. 9. Discussed with nursing. 10. Critically ill. Thank you, Dr. Alvarado for asking us to participate in this patient's care. Should you have further questions or concerns, please call. ELINA MARKHAM MD DR: HANANE/lyndon JOB#: [id number] / [id number]
[2019-07-16 14:51] LABS: AMORPHOUS SEDIMENT,UR PRESENT /HPF; BACTERIA,URINE FEW /HPF (0-FEW)
[2019-07-16] MEDS: ENOXAPARIN 40 MG/0.4 ML SYRINGE. SQ SCH (16:40)
[2019-07-16] MEDS: PIPERACILLIN/TAZOBACTAM 2.25 GM in IV NORMAL SALINE 50ML 50 ML IV SCH ×2 (16:43→19:35)
[2019-07-16] MEDS ORDERED: INSULIN LISPRO 300 UNITS/3 ML VIAL. SQ ONE (21:30)
[2019-07-17] VITALS (14 sets, daily range): BP systolic 112–170; BP diastolic 33–95
[2019-07-17] MEDS: PIPERACILLIN/TAZOBACTAM 2.25 GM in IV NORMAL SALINE 50ML 50 ML IV SCH ×4 (01:10→23:21)
[2019-07-17 05:03] LABS: BASO # 0.1 x10^3/uL (0.0-0.2); BASO % 1 % (0-3); EOS % 0 % (0-3); HEMATOCRIT 40.8 % (39.0-53.0); HEMOGLOBIN 14.3 g/dL (13.0-17.5); LYMPH # 0.4 x10^3/uL (1.0-4.8); LYMPH % 4 % (24-48); MEAN CORPUSCULAR HEMOGLOBIN 31 pg (25-35); MEAN CORPUSCULAR HGB CONC 35 g/dL (31-37); MEAN CORPUSCULAR VOLUME 89 fL (79-100); MONO # 0.5 x10^3/uL (0.0-1.1); MONO % 4 % (0-9); NEUT # 11.3 x10^3/uL (1.8-7.7); NEUT % 92 % (31-73); PLATELET COUNT 185 x10^3/uL (140-400); RED BLOOD COUNT 4.62 x10^6/uL (4.30-5.70); RED CELL DISTRIBUTION WIDTH 13.1 % (11.5-14.5); WHITE BLOOD COUNT 12.3 x10^3/uL (4.0-11.0)
[2019-07-17 05:38] LABS: ALBUMIN 2.1 g/dL (3.4-5.0); ALBUMIN/GLOBULIN RATIO 0.5 (1.0-1.7); CALCIUM 7.8 mg/dL (8.5-10.1); CREATININE 5.4 mg/dL (0.7-1.3); GFR 13.5; TOTAL BILIRUBIN 0.2 mg/dL (0.2-1.0); TOTAL PROTEIN 6.6 g/dL (6.4-8.2)
[2019-07-17] MEDS ORDERED: HYDROcodone/APAP 5/325MG 1 TAB TABLET PO PRN (06:15)
[2019-07-17] MEDS: AZITHROMYCIN 500 MG in IV NORMAL SALINE 250ML 250 ML IV SCH (06:42)
[2019-07-17] MEDS ORDERED: AZITHRMYCN 500MG IVPB FOR OMNI 250 ML IV SCH (07:00)
[2019-07-17] MEDS ORDERED: cefTRIAXone IV Push 1 GM VIAL. IVP SCH (07:00)
--- NOTE | 2019-07-17 07:52 | PDOC ---
Infectious Disease Note Subjective: Subjective Patient feels a little better today though continues to feel weak T-max 100.3 On 5 L O2 by nasal cannula Maintaining good urine output Denies fever, nausea, vomiting, worsening cough or shortness of breath, diarrhea, abdominal pain, rash Otherwise as above Vital Signs: Vital Signs Vital Signs Date Time Temp Pulse Resp B/P (MAP) Pulse Ox O2 Delivery O2 Flow Rate FiO2 07/17/19 06:16 96 Nasal Cannula 5.0 07/17/19 06:00 95 23 116/75 (89) 07/17/19 04:04 98.3 98.3 Physical Exam: PHYSICAL EXAM GENERAL: The patient is propped up in bed, appears comfortable though tired appearing HEENT: Pupils equally round. Normal conjunctivae. Oropharynx pink. No lesions seen. NECK: Supple. LUNGS: Diminished aeration. No accessory muscle use. CARDIAC: S1 and S2 regular. ABDOMEN: Obese, soft. No grimace or guarding to palpation. Bowel sounds present. GENITOURINARY: Indwelling Denn[place] in place. EXTREMITIES: No gross edema or cyanosis. SKIN: Warm to touch. No signs of rash. NEUROLOGIC: Alert oriented x3, grossly nonfocal Medications: Inpatient Meds: Current Medications Medications (Trade) Dose Ordered Sig/Joan Start Time Stop Time Status Last Admin Dose Admin Acetaminophen (Tylenol) 1,000 mg 1X ONCE 07/16/19 10:15 07/16/19 10:17 DC 07/16/19 10:25 1,000 MG Acetaminophen/ Hydrocodone Bitart (Lortab 5/325) 1 tab PRN Q4HRS PRN 07/17/19 06:15 07/17/19 06:16 1 TAB Al Hydroxide/Mg Hydroxide (Mylanta Plus Xs) 30 ml PRN DAILY PRN 07/16/19 11:00 Albuterol Sulfate (Ventolin Neb Soln) 2.5 mg PRN Q4HRS PRN 07/16/19 14:15 Albuterol/ Ipratropium (Duoneb) 3 ml Q4HRS 07/16/19 12:00 07/16/19 14:10 DC Azithromycin 250 ml @ 250 mls/hr DAILY07 07/17/19 07:00 Cancel Azithromycin 500 mg/Sodium Chloride 250 ml @ 250 mls/hr Q24H 6/8/20 07:00 07/17/19 06:42 250 MLS/HR Ceftriaxone Sodium (Rocephin) 1 gm DAILY07 07/17/19 07:00 07/16/19 13:59 DC Clonidine HCl (Catapres) 0.1 mg PRN Q6HRS PRN 07/16/19 11:00 Dextrose (Dextrose 50%-Water Syringe) 12.5 gm PRN Q15MIN PRN 07/16/19 12:00 Docusate Sodium (Colace) 100 mg PRN BID PRN 07/16/19 11:00 Enoxaparin Sodium (Lovenox 40mg Syringe) 40 mg Q24H 07/16/19 11:00 07/16/19 16:40 40 MG Guaifenesin (Robitussin) 200 mg PRN Q4HRS PRN 07/16/19 11:00 Ibuprofen (Motrin) 800 mg 1X ONCE 07/16/19 11:00 07/16/19 11:03 DC Insulin Human Lispro (HumaLOG) 6 units 1X ONCE 07/16/19 21:30 07/16/19 21:31 DC 07/16/19 21:07 6 UNITS Linezolid/Dextrose 300 ml @ 300 mls/hr Q12HR 07/16/19 15:00 07/16/19 22:51 300 MLS/HR Ondansetron HCl (Zofran) 4 mg PRN Q8HRS PRN 07/16/19 11:00 07/17/19 10:59 Piperacillin Sod/ Tazobactam Sod (Zosyn Per Pharmacy) 1 each PRN DAILY PRN 07/16/19 14:00 Piperacillin Sod/ Tazobactam Sod 2.25 gm/Sodium Chloride 50 ml @ 100 mls/hr Q6HRS 07/16/19 14:00 07/17/19 05:36 100 MLS/HR Sodium Monofluorophosphate (Fleet Adult) 133 ml PRN DAILY PRN 07/16/19 11:00 Sodium Chloride 1,000 ml @ 125 mls/hr Q8H 07/16/19 13:00 07/16/19 21:00 125 MLS/HR Sodium Chloride (Normal Saline Flush) 3 ml QSHIFT PRN 07/16/19 11:00 Labs: Lab Laboratory Tests Test 07/16/19 10:15 07/16/19 12:51 07/16/19 13:00 07/16/19 17:57 White Blood Count 20.3 x10^3/uL (4.0-11.0) Red Blood Count 4.70 x10^6/uL (4.30-5.70) Hemoglobin 14.7 g/dL (13.0-17.5) Hematocrit 41.9 % (39.0-53.0) Mean Corpuscular Volume 89 fL (79-100) Mean Corpuscular Hemoglobin 31 pg (25-35) Mean Corpuscular Hemoglobin Concent 35 g/dL (31-37) Red Cell Distribution Width 13.0 % (11.5-14.5) Platelet Count 207 x10^3/uL (140-400) Neutrophils (%) (Auto) 91 % (31-73) Lymphocytes (%) (Auto) 4 % (24-48) Monocytes (%) (Auto) 4 % (0-9) Eosinophils (%) (Auto) 0 % (0-3) Basophils (%) (Auto) 1 % (0-3) Neutrophils # (Auto) 18.4 x10^3/uL (1.8-7.7) Lymphocytes # (Auto) 0.9 x10^3/uL (1.0-4.8) Monocytes # (Auto) 0.9 x10^3/uL (0.0-1.1) Eosinophils # (Auto) 0.0 x10^3/uL (0.0-0.7) Basophils # (Auto) 0.1 x10^3/uL (0.0-0.2) Segmented Neutrophils % 75 % (35-66) Band Neutrophils % 14 % (0-9) Lymphocytes % 10 % (24-48) Monocytes % 1 % (0-10) Toxic Granulation Mod Platelet Estimate Adequate (ADEQUATE) Prothrombin Time 15.2 SEC (11.7-14.0) Prothromb Time International Ratio 1.2 (0.8-1.1) Activated Partial Thromboplast Time 36 SEC (24-38) Fibrinogen 1231 mg/dL (200-440) D-Dimer (Yulisa) 4.88 ug/mlFEU (0.00-0.50) Sodium Level 130 mmol/L (136-145) Potassium Level 3.7 mmol/L (3.5-5.1) Chloride Level 93 mmol/L (98-107) Carbon Dioxide Level 20 mmol/L (21-32) Anion Gap 17 (6-14) Blood Urea Nitrogen 55 mg/dL (8-26) Creatinine 4.9 mg/dL (0.7-1.3) Estimated GFR (Cockcroft-Gault) 15.1 BUN/Creatinine Ratio 11 (6-20) Glucose Level 493 mg/dL (70-99) Lactic Acid Level 1.8 mmol/L (0.4-2.0) Calcium Level 8.1 mg/dL (8.5-10.1) Magnesium Level 1.4 mg/dL (1.8-2.4) Total Bilirubin 0.5 mg/dL (0.2-1.0) Aspartate Amino Transf (AST/SGOT) 258 U/L (15-37) Alanine Aminotransferase (ALT/SGPT) 76 U/L (16-63) Alkaline Phosphatase 57 U/L (46-116) Troponin I Quantitative 0.116 ng/mL (0.000-0.055) BX-Mud-X-Type Natriuretic Peptide 958 pg/mL (0-124) Total Protein 6.6 g/dL (6.4-8.2) Albumin 2.9 g/dL (3.4-5.0) Albumin/Globulin Ratio 0.8 (1.0-1.7) Lipase 106 U/L (73-393) Procalcitonin 69.89 ng/mL (0.00-0.10) Mycoplasma Serology (LAB) Negative (NEGATIVE) Glucose (Fingerstick) 467 mg/dL (70-99) 441 mg/dL (70-99) Urine Collection Type U cath Urine Color Carly Urine Clarity Cloudy Urine pH 5.0 (<5.0-8.0) Urine Specific [place] 1.020 (1.000-1.030) Urine Protein 100 mg/dL (NEG-TRACE) Urine Glucose (UA) 500 mg/dL (NEG) Urine Ketones (Stick) Trace mg/dL (NEG) Urine Blood Large (NEG) Urine Nitrite Negative (NEG) Urine Bilirubin Small (NEG) Urine Urobilinogen Dipstick 0.2 mg/dL (0.2 mg/dL) Urine Leukocyte Esterase Small (NEG) Urine RBC 3-5 /HPF (0-2) Urine WBC 1-4 /HPF (0-4) Urine Amorphous Sediment Present /HPF Urine Bacteria Few /HPF (0-FEW) Test 07/16/19 20:55 07/16/19 23:35 07/17/19 03:30 Glucose (Fingerstick) 433 mg/dL (70-99) 346 mg/dL (70-99) White Blood Count 12.3 x10^3/uL (4.0-11.0) Red Blood Count 4.62 x10^6/uL (4.30-5.70) Hemoglobin 14.3 g/dL (13.0-17.5) Hematocrit 40.8 % (39.0-53.0) Mean Corpuscular Volume 89 fL (79-100) Mean Corpuscular Hemoglobin 31 pg (25-35) Mean Corpuscular Hemoglobin Concent 35 g/dL (31-37) Red Cell Distribution Width 13.1 % (11.5-14.5) Platelet Count 185 x10^3/uL (140-400) Neutrophils (%) (Auto) 92 % (31-73) Lymphocytes (%) (Auto) 4 % (24-48) Monocytes (%) (Auto) 4 % (0-9) Eosinophils (%) (Auto) 0 % (0-3) Basophils (%) (Auto) 1 % (0-3) Neutrophils # (Auto) 11.3 x10^3/uL (1.8-7.7) Lymphocytes # (Auto) 0.4 x10^3/uL (1.0-4.8) Monocytes # (Auto) 0.5 x10^3/uL (0.0-1.1) Eosinophils # (Auto) 0.0 x10^3/uL (0.0-0.7) Basophils # (Auto) 0.1 x10^3/uL (0.0-0.2) Sodium Level 136 mmol/L (136-145) Potassium Level 4.0 mmol/L (3.5-5.1) Chloride Level 100 mmol/L (98-107) Carbon Dioxide Level 22 mmol/L (21-32) Anion Gap 14 (6-14) Blood Urea Nitrogen 61 mg/dL (8-26) Creatinine 5.4 mg/dL (0.7-1.3) Estimated GFR (Cockcroft-Gault) 13.5 BUN/Creatinine Ratio 11 (6-20) Glucose Level 283 mg/dL (70-99) Calcium Level 7.8 mg/dL (8.5-10.1) Total Bilirubin 0.2 mg/dL (0.2-1.0) Aspartate Amino Transf (AST/SGOT) 182 U/L (15-37) Alanine Aminotransferase (ALT/SGPT) 65 U/L (16-63) Alkaline Phosphatase 76 U/L (46-116) Total Protein 6.6 g/dL (6.4-8.2) Albumin 2.1 g/dL (3.4-5.0) Albumin/Globulin Ratio 0.5 (1.0-1.7) Objective: Assessment: 1. Sepsis present on admission. Cultures pending so far 2. Multifocal pneumonia. Serologies pending including COVID-19 3. Rule out COVID. 4. Fever and leukocytosis. Improving 5. Acute encephalopathy. Likely metabolic,improving 6. Acute kidney injury. 7. Transaminitis. 8. Diabetes. 9. Hypertension. 10. Obesity. 11. Sleep apnea. Plan: Plan of Care cont Zyvox and Zosyn Continue azithromycin for atypical coverage Strep pnuemo/legionella Ag COVID-19 pending Nephrology consulted f/u cultures Monitor lab values/temp Maintain aspiration precautions Airborne isolation till COVID r/o D/w nursing Critically ill [id number] FARLEY MD Jul 17, 2019 07:52
--- NOTE | 2019-07-17 07:52 | PDOC ---
PROGRESS NOTES Chief Complaint Chief Complaint A/P: Acute hypoxic respiratory failure - sepsis and pneumonia Metabolic encephalopathy Pneumonia - left lower lobe Hyponatremia. Acute kidney injury with metabolic acidosis - vasomotor nephropathy Hypomagnesemia. Mildly increased troponin level. Abnormal D-dimer. Could be nonspecific. However, we will do venous Dopplers once COVID test is negative. Sepsis - Marked leukocytosis secondary to pneumonia. Transaminitis DM2 - sliding scale HTN - cont meds Obesity - counseled on weight loss Sleep apnea - On O2 Sepsis - 2/2 pneumonia FEN - ADA diet PPX - lovenox FULL CODE Dispo - inpatient, likely can downgrade from ICU if remains stable today and COVID is negative CC time 40 minutes History of Present Illness History of Present Illness Patient feels a little better today though continues to feel profoundly weak, having difficulty lifting arms and legs. T-max 100.3. On 5 L O2 by nasal cannul a. Maintaining good urine output. Has some left lower chest pain, reproducible, worse with cough. COVID pending. Vitals Vitals Vital Signs Date Time Temp Pulse Resp B/P (MAP) Pulse Ox O2 Delivery O2 Flow Rate FiO2 07/17/19 06:16 96 Nasal Cannula 5.0 07/17/19 06:00 95 23 116/75 (89) 07/17/19 04:04 98.3 98.3 Physical Exam General: Cooperative, mild distress Lungs: Crackles Abdomen: Soft Extremities: No cyanosis Labs LABS Laboratory Tests Test 07/16/19 10:15 07/16/19 12:51 07/16/19 13:00 07/16/19 17:57 White Blood Count 20.3 x10^3/uL (4.0-11.0) Red Blood Count 4.70 x10^6/uL (4.30-5.70) Hemoglobin 14.7 g/dL (13.0-17.5) Hematocrit 41.9 % (39.0-53.0) Mean Corpuscular Volume 89 fL (79-100) Mean Corpuscular Hemoglobin 31 pg (25-35) Mean Corpuscular Hemoglobin Concent 35 g/dL (31-37) Red Cell Distribution Width 13.0 % (11.5-14.5) Platelet Count 207 x10^3/uL (140-400) Neutrophils (%) (Auto) 91 % (31-73) Lymphocytes (%) (Auto) 4 % (24-48) Monocytes (%) (Auto) 4 % (0-9) Eosinophils (%) (Auto) 0 % (0-3) Basophils (%) (Auto) 1 % (0-3) Neutrophils # (Auto) 18.4 x10^3/uL (1.8-7.7) Lymphocytes # (Auto) 0.9 x10^3/uL (1.0-4.8) Monocytes # (Auto) 0.9 x10^3/uL (0.0-1.1) Eosinophils # (Auto) 0.0 x10^3/uL (0.0-0.7) Basophils # (Auto) 0.1 x10^3/uL (0.0-0.2) Segmented Neutrophils % 75 % (35-66) Band Neutrophils % 14 % (0-9) Lymphocytes % 10 % (24-48) Monocytes % 1 % (0-10) Toxic Granulation Mod Platelet Estimate Adequate (ADEQUATE) Prothrombin Time 15.2 SEC (11.7-14.0) Prothromb Time International Ratio 1.2 (0.8-1.1) Activated Partial Thromboplast Time 36 SEC (24-38) Fibrinogen 1231 mg/dL (200-440) D-Dimer (Yulisa) 4.88 ug/mlFEU (0.00-0.50) Sodium Level 130 mmol/L (136-145) Potassium Level 3.7 mmol/L (3.5-5.1) Chloride Level 93 mmol/L (98-107) Carbon Dioxide Level 20 mmol/L (21-32) Anion Gap 17 (6-14) Blood Urea Nitrogen 55 mg/dL (8-26) Creatinine 4.9 mg/dL (0.7-1.3) Estimated GFR (Cockcroft-Gault) 15.1 BUN/Creatinine Ratio 11 (6-20) Glucose Level 493 mg/dL (70-99) Lactic Acid Level 1.8 mmol/L (0.4-2.0) Calcium Level 8.1 mg/dL (8.5-10.1) Magnesium Level 1.4 mg/dL (1.8-2.4) Total Bilirubin 0.5 mg/dL (0.2-1.0) Aspartate Amino Transf (AST/SGOT) 258 U/L (15-37) Alanine Aminotransferase (ALT/SGPT) 76 U/L (16-63) Alkaline Phosphatase 57 U/L (46-116) Troponin I Quantitative 0.116 ng/mL (0.000-0.055) QI-Xld-R-Type Natriuretic Peptide 958 pg/mL (0-124) Total Protein 6.6 g/dL (6.4-8.2) Albumin 2.9 g/dL (3.4-5.0) Albumin/Globulin Ratio 0.8 (1.0-1.7) Lipase 106 U/L (73-393) Procalcitonin 69.89 ng/mL (0.00-0.10) Mycoplasma Serology (LAB) Negative (NEGATIVE) Glucose (Fingerstick) 467 mg/dL (70-99) 441 mg/dL (70-99) Urine Collection Type U cath Urine Color Carly Urine Clarity Cloudy Urine pH 5.0 (<5.0-8.0) Urine Specific [place] 1.020 (1.000-1.030) Urine Protein 100 mg/dL (NEG-TRACE) Urine Glucose (UA) 500 mg/dL (NEG) Urine Ketones (Stick) Trace mg/dL (NEG) Urine Blood Large (NEG) Urine Nitrite Negative (NEG) Urine Bilirubin Small (NEG) Urine Urobilinogen Dipstick 0.2 mg/dL (0.2 mg/dL) Urine Leukocyte Esterase Small (NEG) Urine RBC 3-5 /HPF (0-2) Urine WBC 1-4 /HPF (0-4) Urine Amorphous Sediment Present /HPF Urine Bacteria Few /HPF (0-FEW) Test 07/16/19 20:55 07/16/19 23:35 07/17/19 03:30 Glucose (Fingerstick) 433 mg/dL (70-99) 346 mg/dL (70-99) White Blood Count 12.3 x10^3/uL (4.0-11.0) Red Blood Count 4.62 x10^6/uL (4.30-5.70) Hemoglobin 14.3 g/dL (13.0-17.5) Hematocrit 40.8 % (39.0-53.0) Mean Corpuscular Volume 89 fL (79-100) Mean Corpuscular Hemoglobin 31 pg (25-35) Mean Corpuscular Hemoglobin Concent 35 g/dL (31-37) Red Cell Distribution Width 13.1 % (11.5-14.5) Platelet Count 185 x10^3/uL (140-400) Neutrophils (%) (Auto) 92 % (31-73) Lymphocytes (%) (Auto) 4 % (24-48) Monocytes (%) (Auto) 4 % (0-9) Eosinophils (%) (Auto) 0 % (0-3) Basophils (%) (Auto) 1 % (0-3) Neutrophils # (Auto) 11.3 x10^3/uL (1.8-7.7) Lymphocytes # (Auto) 0.4 x10^3/uL (1.0-4.8) Monocytes # (Auto) 0.5 x10^3/uL (0.0-1.1) Eosinophils # (Auto) 0.0 x10^3/uL (0.0-0.7) Basophils # (Auto) 0.1 x10^3/uL (0.0-0.2) Sodium Level 136 mmol/L (136-145) Potassium Level 4.0 mmol/L (3.5-5.1) Chloride Level 100 mmol/L (98-107) Carbon Dioxide Level 22 mmol/L (21-32) Anion Gap 14 (6-14) Blood Urea Nitrogen 61 mg/dL (8-26) Creatinine 5.4 mg/dL (0.7-1.3) Estimated GFR (Cockcroft-Gault) 13.5 BUN/Creatinine Ratio 11 (6-20) Glucose Level 283 mg/dL (70-99) Calcium Level 7.8 mg/dL (8.5-10.1) Total Bilirubin 0.2 mg/dL (0.2-1.0) Aspartate Amino Transf (AST/SGOT) 182 U/L (15-37) Alanine Aminotransferase (ALT/SGPT) 65 U/L (16-63) Alkaline Phosphatase 76 U/L (46-116) Total Protein 6.6 g/dL (6.4-8.2) Albumin 2.1 g/dL (3.4-5.0) Albumin/Globulin Ratio 0.5 (1.0-1.7) Assessment and Plan Assessmemt and Plan Problems Medical Problems: (1) Acute renal failure Status: Acute (2) Hypoxemia Status: Acute (3) Sepsis Status: Acute (4) Severe sepsis Status: Acute (5) Suspected 2019-nCoV infection Status: Acute Comment Review of Relevant I have reviewed the following items rei (where applicable) has been applied. Labs Laboratory Tests Test 07/16/19 10:15 07/16/19 12:51 07/16/19 13:00 07/16/19 17:57 White Blood Count 20.3 x10^3/uL (4.0-11.0) Red Blood Count 4.70 x10^6/uL (4.30-5.70) Hemoglobin 14.7 g/dL (13.0-17.5) Hematocrit 41.9 % (39.0-53.0) Mean Corpuscular Volume 89 fL (79-100) Mean Corpuscular Hemoglobin 31 pg (25-35) Mean Corpuscular Hemoglobin Concent 35 g/dL (31-37) Red Cell Distribution Width 13.0 % (11.5-14.5) Platelet Count 207 x10^3/uL (140-400) Neutrophils (%) (Auto) 91 % (31-73) Lymphocytes (%) (Auto) 4 % (24-48) Monocytes (%) (Auto) 4 % (0-9) Eosinophils (%) (Auto) 0 % (0-3) Basophils (%) (Auto) 1 % (0-3) Neutrophils # (Auto) 18.4 x10^3/uL (1.8-7.7) Lymphocytes # (Auto) 0.9 x10^3/uL (1.0-4.8) Monocytes # (Auto) 0.9 x10^3/uL (0.0-1.1) Eosinophils # (Auto) 0.0 x10^3/uL (0.0-0.7) Basophils # (Auto) 0.1 x10^3/uL (0.0-0.2) Segmented Neutrophils % 75 % (35-66) Band Neutrophils % 14 % (0-9) Lymphocytes % 10 % (24-48) Monocytes % 1 % (0-10) Toxic Granulation Mod Platelet Estimate Adequate (ADEQUATE) Prothrombin Time 15.2 SEC (11.7-14.0) Prothromb Time International Ratio 1.2 (0.8-1.1) Activated Partial Thromboplast Time 36 SEC (24-38) Fibrinogen 1231 mg/dL (200-440) D-Dimer (Yulisa) 4.88 ug/mlFEU (0.00-0.50) Sodium Level 130 mmol/L (136-145) Potassium Level 3.7 mmol/L (3.5-5.1) Chloride Level 93 mmol/L (98-107) Carbon Dioxide Level 20 mmol/L (21-32) Anion Gap 17 (6-14) Blood Urea Nitrogen 55 mg/dL (8-26) Creatinine 4.9 mg/dL (0.7-1.3) Estimated GFR (Cockcroft-Gault) 15.1 BUN/Creatinine Ratio 11 (6-20) Glucose Level 493 mg/dL (70-99) Lactic Acid Level 1.8 mmol/L (0.4-2.0) Calcium Level 8.1 mg/dL (8.5-10.1) Magnesium Level 1.4 mg/dL (1.8-2.4) Total Bilirubin 0.5 mg/dL (0.2-1.0) Aspartate Amino Transf (AST/SGOT) 258 U/L (15-37) Alanine Aminotransferase (ALT/SGPT) 76 U/L (16-63) Alkaline Phosphatase 57 U/L (46-116) Troponin I Quantitative 0.116 ng/mL (0.000-0.055) TR-Csm-Z-Type Natriuretic Peptide 958 pg/mL (0-124) Total Protein 6.6 g/dL (6.4-8.2) Albumin 2.9 g/dL (3.4-5.0) Albumin/Globulin Ratio 0.8 (1.0-1.7) Lipase 106 U/L (73-393) Procalcitonin 69.89 ng/mL (0.00-0.10) Mycoplasma Serology (LAB) Negative (NEGATIVE) Glucose (Fingerstick) 467 mg/dL (70-99) 441 mg/dL (70-99) Urine Collection Type U cath Urine Color Carly Urine Clarity Cloudy Urine pH 5.0 (<5.0-8.0) Urine Specific [place] 1.020 (1.000-1.030) Urine Protein 100 mg/dL (NEG-TRACE) Urine Glucose (UA) 500 mg/dL (NEG) Urine Ketones (Stick) Trace mg/dL (NEG) Urine Blood Large (NEG) Urine Nitrite Negative (NEG) Urine Bilirubin Small (NEG) Urine Urobilinogen Dipstick 0.2 mg/dL (0.2 mg/dL) Urine Leukocyte Esterase Small (NEG) Urine RBC 3-5 /HPF (0-2) Urine WBC 1-4 /HPF (0-4) Urine Amorphous Sediment Present /HPF Urine Bacteria Few /HPF (0-FEW) Test 07/16/19 20:55 07/16/19 23:35 07/17/19 03:30 Glucose (Fingerstick) 433 mg/dL (70-99) 346 mg/dL (70-99) White Blood Count 12.3 x10^3/uL (4.0-11.0) Red Blood Count 4.62 x10^6/uL (4.30-5.70) Hemoglobin 14.3 g/dL (13.0-17.5) Hematocrit 40.8 % (39.0-53.0) Mean Corpuscular Volume 89 fL (79-100) Mean Corpuscular Hemoglobin 31 pg (25-35) Mean Corpuscular Hemoglobin Concent 35 g/dL (31-37) Red Cell Distribution Width 13.1 % (11.5-14.5) Platelet Count 185 x10^3/uL (140-400) Neutrophils (%) (Auto) 92 % (31-73) Lymphocytes (%) (Auto) 4 % (24-48) Monocytes (%) (Auto) 4 % (0-9) Eosinophils (%) (Auto) 0 % (0-3) Basophils (%) (Auto) 1 % (0-3) Neutrophils # (Auto) 11.3 x10^3/uL (1.8-7.7) Lymphocytes # (Auto) 0.4 x10^3/uL (1.0-4.8) Monocytes # (Auto) 0.5 x10^3/uL (0.0-1.1) Eosinophils # (Auto) 0.0 x10^3/uL (0.0-0.7) Basophils # (Auto) 0.1 x10^3/uL (0.0-0.2) Sodium Level 136 mmol/L (136-145) Potassium Level 4.0 mmol/L (3.5-5.1) Chloride Level 100 mmol/L (98-107) Carbon Dioxide Level 22 mmol/L (21-32) Anion Gap 14 (6-14) Blood Urea Nitrogen 61 mg/dL (8-26) Creatinine 5.4 mg/dL (0.7-1.3) Estimated GFR (Cockcroft-Gault) 13.5 BUN/Creatinine Ratio 11 (6-20) Glucose Level 283 mg/dL (70-99) Calcium Level 7.8 mg/dL (8.5-10.1) Total Bilirubin 0.2 mg/dL (0.2-1.0) Aspartate Amino Transf (AST/SGOT) 182 U/L (15-37) Alanine Aminotransferase (ALT/SGPT) 65 U/L (16-63) Alkaline Phosphatase 76 U/L (46-116) Total Protein 6.6 g/dL (6.4-8.2) Albumin 2.1 g/dL (3.4-5.0) Albumin/Globulin Ratio 0.5 (1.0-1.7) Laboratory Tests Test 07/16/19 10:15 07/16/19 12:51 07/16/19 13:00 07/16/19 17:57 White Blood Count 20.3 x10^3/uL (4.0-11.0) Red Blood Count 4.70 x10^6/uL (4.30-5.70) Hemoglobin 14.7 g/dL (13.0-17.5) Hematocrit 41.9 % (39.0-53.0) Mean Corpuscular Volume 89 fL (79-100) Mean Corpuscular Hemoglobin 31 pg (25-35) Mean Corpuscular Hemoglobin Concent 35 g/dL (31-37) Red Cell Distribution Width 13.0 % (11.5-14.5) Platelet Count 207 x10^3/uL (140-400) Neutrophils (%) (Auto) 91 % (31-73) Lymphocytes (%) (Auto) 4 % (24-48) Monocytes (%) (Auto) 4 % (0-9) Eosinophils (%) (Auto) 0 % (0-3) Basophils (%) (Auto) 1 % (0-3) Neutrophils # (Auto) 18.4 x10^3/uL (1.8-7.7) Lymphocytes # (Auto) 0.9 x10^3/uL (1.0-4.8) Monocytes # (Auto) 0.9 x10^3/uL (0.0-1.1) Eosinophils # (Auto) 0.0 x10^3/uL (0.0-0.7) Basophils # (Auto) 0.1 x10^3/uL (0.0-0.2) Segmented Neutrophils % 75 % (35-66) Band Neutrophils % 14 % (0-9) Lymphocytes % 10 % (24-48) Monocytes % 1 % (0-10) Toxic Granulation Mod Platelet Estimate Adequate (ADEQUATE) Prothrombin Time 15.2 SEC (11.7-14.0) Prothromb Time International Ratio 1.2 (0.8-1.1) Activated Partial Thromboplast Time 36 SEC (24-38) Fibrinogen 1231 mg/dL (200-440) D-Dimer (Yulisa) 4.88 ug/mlFEU (0.00-0.50) Sodium Level 130 mmol/L (136-145) Potassium Level 3.7 mmol/L (3.5-5.1) Chloride Level 93 mmol/L (98-107) Carbon Dioxide Level 20 mmol/L (21-32) Anion Gap 17 (6-14) Blood Urea Nitrogen 55 mg/dL (8-26) Creatinine 4.9 mg/dL (0.7-1.3) Estimated GFR (Cockcroft-Gault) 15.1 BUN/Creatinine Ratio 11 (6-20) Glucose Level 493 mg/dL (70-99) Lactic Acid Level 1.8 mmol/L (0.4-2.0) Calcium Level 8.1 mg/dL (8.5-10.1) Magnesium Level 1.4 mg/dL (1.8-2.4) Total Bilirubin 0.5 mg/dL (0.2-1.0) Aspartate Amino Transf (AST/SGOT) 258 U/L (15-37) Alanine Aminotransferase (ALT/SGPT) 76 U/L (16-63) Alkaline Phosphatase 57 U/L (46-116) Troponin I Quantitative 0.116 ng/mL (0.000-0.055) IZ-Btd-N-Type Natriuretic Peptide 958 pg/mL (0-124) Total Protein 6.6 g/dL (6.4-8.2) Albumin 2.9 g/dL (3.4-5.0) Albumin/Globulin Ratio 0.8 (1.0-1.7) Lipase 106 U/L (73-393) Procalcitonin 69.89 ng/mL (0.00-0.10) Mycoplasma Serology (LAB) Negative (NEGATIVE) Glucose (Fingerstick) 467 mg/dL (70-99) 441 mg/dL (70-99) Urine Collection Type U cath Urine Color Carly Urine Clarity Cloudy Urine pH 5.0 (<5.0-8.0) Urine Specific [place] 1.020 (1.000-1.030) Urine Protein 100 mg/dL (NEG-TRACE) Urine Glucose (UA) 500 mg/dL (NEG) Urine Ketones (Stick) Trace mg/dL (NEG) Urine Blood Large (NEG) Urine Nitrite Negative (NEG) Urine Bilirubin Small (NEG) Urine Urobilinogen Dipstick 0.2 mg/dL (0.2 mg/dL) Urine Leukocyte Esterase Small (NEG) Urine RBC 3-5 /HPF (0-2) Urine WBC 1-4 /HPF (0-4) Urine Amorphous Sediment Present /HPF Urine Bacteria Few /HPF (0-FEW) Test 07/16/19 20:55 07/16/19 23:35 07/17/19 03:30 Glucose (Fingerstick) 433 mg/dL (70-99) 346 mg/dL (70-99) White Blood Count 12.3 x10^3/uL (4.0-11.0) Red Blood Count 4.62 x10^6/uL (4.30-5.70) Hemoglobin 14.3 g/dL (13.0-17.5) Hematocrit 40.8 % (39.0-53.0) Mean Corpuscular Volume 89 fL (79-100) Mean Corpuscular Hemoglobin 31 pg (25-35) Mean Corpuscular Hemoglobin Concent 35 g/dL (31-37) Red Cell Distribution Width 13.1 % (11.5-14.5) Platelet Count 185 x10^3/uL (140-400) Neutrophils (%) (Auto) 92 % (31-73) Lymphocytes (%) (Auto) 4 % (24-48) Monocytes (%) (Auto) 4 % (0-9) Eosinophils (%) (Auto) 0 % (0-3) Basophils (%) (Auto) 1 % (0-3) Neutrophils # (Auto) 11.3 x10^3/uL (1.8-7.7) Lymphocytes # (Auto) 0.4 x10^3/uL (1.0-4.8) Monocytes # (Auto) 0.5 x10^3/uL (0.0-1.1) Eosinophils # (Auto) 0.0 x10^3/uL (0.0-0.7) Basophils # (Auto) 0.1 x10^3/uL (0.0-0.2) Sodium Level 136 mmol/L (136-145) Potassium Level 4.0 mmol/L (3.5-5.1) Chloride Level 100 mmol/L (98-107) Carbon Dioxide Level 22 mmol/L (21-32) Anion Gap 14 (6-14) Blood Urea Nitrogen 61 mg/dL (8-26) Creatinine 5.4 mg/dL (0.7-1.3) Estimated GFR (Cockcroft-Gault) 13.5 BUN/Creatinine Ratio 11 (6-20) Glucose Level 283 mg/dL (70-99) Calcium Level 7.8 mg/dL (8.5-10.1) Total Bilirubin 0.2 mg/dL (0.2-1.0) Aspartate Amino Transf (AST/SGOT) 182 U/L (15-37) Alanine Aminotransferase (ALT/SGPT) 65 U/L (16-63) Alkaline Phosphatase 76 U/L (46-116) Total Protein 6.6 g/dL (6.4-8.2) Albumin 2.1 g/dL (3.4-5.0) Albumin/Globulin Ratio 0.5 (1.0-1.7) Medications Current Medications Sodium Chloride 1,000 ml @ 1,000 mls/hr 1X ONCE IV Last administered on 07/16/19at 10:22; Start 07/16/19 at 10:15; Stop 07/16/19 at 11:14; Status DC Ceftriaxone Sodium (Rocephin) 1 gm 1X ONCE IVP Last administered on 07/16/19at 10:25; Start 07/16/19 at 10:15; Stop 07/16/19 at 10:17; Status DC Azithromycin 250 ml @ 250 mls/hr 1X ONCE IV Last administered on 07/16/19at 10:15; Start 07/16/19 at 10:15; Stop 07/16/19 at 11:14; Status DC Acetaminophen (Tylenol) 1,000 mg 1X ONCE PO Last administered on 07/16/19at 10:25; Start 07/16/19 at 10:15; Stop 07/16/19 at 10:17; Status DC Ibuprofen (Motrin) 800 mg 1X ONCE PO Last administered on 07/16/19at 10:25; Start 07/16/19 at 10:15; Stop 07/16/19 at 10:17; Status DC Ibuprofen (Motrin) 800 mg 1X ONCE PO ; Start 07/16/19 at 11:00; Stop 07/16/19 at 11:03; Status DC Ceftriaxone Sodium (Rocephin) 1 gm DAILY07 IVP ; Start 07/17/19 at 07:00; Stop 07/16/19 at 13:59; Status DC Azithromycin 250 ml @ 250 mls/hr DAILY07 IV ; Start 07/17/19 at 07:00; Status Cancel Sodium Chloride (Normal Saline Flush) 3 ml QSHIFT PRN IV AFTER MEDS AND BLOOD DRAWS; Start 07/16/19 at 11:00 Sodium Chloride 1,000 ml @ 100 mls/hr Q10H IV ; Start 07/16/19 at 10:53; Stop 07/16/19 at 12:57; Status DC Ondansetron HCl (Zofran) 4 mg PRN Q4HRS PRN IV NAUSEA/VOMITING; Start 07/16/19 at 11:00 Al Hydroxide/Mg Hydroxide (Mylanta Plus Xs) 30 ml PRN DAILY PRN PO HEARTBURN / GAS; Start 07/16/19 at 11:00 Clonidine HCl (Catapres) 0.1 mg PRN Q6HRS PRN PO SBP>160 OR DBP>90; Start 07/16/19 at 11:00 Sodium Monofluorophosphate (Fleet Adult) 133 ml PRN DAILY PRN [place] CONSTIPATION; Start 07/16/19 at 11:00 Docusate Sodium (Colace) 100 mg PRN BID PRN PO HARD STOOLS; Start 07/16/19 at 11 :00 Albuterol/ Ipratropium (Duoneb) 3 ml Q4HRS NEB ; Start 07/16/19 at 12:00; Stop 07/16/19 at 14:10; Status DC Guaifenesin (Robitussin) 200 mg PRN Q4HRS PRN PO COUGH; Start 07/16/19 at 11:00 Enoxaparin Sodium (Lovenox 40mg Syringe) 40 mg Q24H SQ Last administered on 07/16/19at 16:40; Start 07/16/19 at 11:00 Ondansetron HCl (Zofran) 4 mg PRN Q8HRS PRN IV NAUSEA/VOMITING; Start 07/16/19 at 11:00; Stop 07/17/19 at 10:59 Sodium Chloride 1,000 ml @ 125 mls/hr Q8H IV ; Start 07/16/19 at 10:58; Stop 07/16/19 at 12:57; Status DC Insulin Human Lispro (HumaLOG) 0-7 UNITS TIDWMEALS SQ Last administered on 07/16/19at 18:00; Start 07/16/19 at 12:00 Dextrose (Dextrose 50%-Water Syringe) 12.5 gm PRN Q15MIN PRN IV SEE COMMENTS; Start 07/16/19 at 12:00 Sodium Chloride 1,000 ml @ 125 mls/hr Q8H IV Last administered on 07/16/19at 21:00; Start 07/16/19 at 13:00 Linezolid/Dextrose 300 ml @ 300 mls/hr Q12HR IV Last administered on 07/16/19at 22:51; Start 07/16/19 at 15:00 Piperacillin Sod/ Tazobactam Sod (Zosyn Per Pharmacy) 1 each PRN DAILY PRN MC SEE COMMENTS; Start 07/16/19 at 14:00 Piperacillin Sod/ Tazobactam Sod 2.25 gm/Sodium Chloride 50 ml @ 100 mls/hr Q 6HRS IV Last administered on 07/17/19at 05:36; Start 07/16/19 at 14:00 Albuterol Sulfate (Ventolin Neb Soln) 2.5 mg PRN Q4HRS PRN NEB SHORTNESS OF BREATH; Start 07/16/19 at 14:15 Insulin Human Lispro (HumaLOG) 6 units 1X ONCE SQ Last administered on 07/16/19 at 21:07; Start 07/16/19 at 21:30; Stop 07/16/19 at 21:31; Status DC Azithromycin 500 mg/Sodium Chloride 250 ml @ 250 mls/hr Q24H IV Last administered on 07/17/19at 06:42; Start 07/17/19 at 07:00 Acetaminophen/ Hydrocodone Bitart (Lortab 5/325) 1 tab PRN Q4HRS PRN PO MODERATE PAIN 4-6 Last administered on 07/17/19at 06:16; Start 07/17/19 at 06:15 Active Scripts Active Glucophage (Metformin Hcl) 500 Mg Tablet 500 Mg PO BIDWMEALS Prinivil (Lisinopril) 5 Mg Tablet 10 Mg PO DAILY Levemir Flextouch (Insulin Detemir) 300 Units/3 Ml Insuln.pen 28 Units SQ QHS Novolog Flexpen (Insulin Aspart) 300 Units/3 Ml Insuln.pen 18 Units SQ TIDAC [Aspirin] 81 MG Tablet.dr 81 Mg PO DAILYWBKFT Lipitor (Atorvastatin Calcium) 20 Mg Tablet 20 Mg PO QHS Vitals/I & O Vital Sign - Last 24 Hours 07/16/19 07/16/19 07/16/19 07/16/19 09:45 10:15 10:45 11:15 Temp 103.2 103.2 Pulse 128 126 114 110 Resp 44 36 36 36 B/P (MAP) 139/84 (102) 152/123 (133) 134/81 (98) 130/86 (101) Pulse Ox 92 96 96 97 O2 Delivery Room Air Nasal Cannula Nasal Cannula Nasal Cannula O2 Flow Rate 2.0 2.0 2.0 07/16/19 07/16/19 07/16/19 07/16/19 11:40 11:45 12:30 12:30 Temp 99.4 99.3 99.4 99.3 Pulse 106 104 99 Resp 36 32 28 B/P (MAP) 132/78 (96) 115/64 (81) Pulse Ox 96 95 95 O2 Delivery Nasal Cannula Nasal Cannula Nasal Cannula Nasal Cannula O2 Flow Rate 2.0 2.0 3.0 3.0 07/16/19 07/16/19 07/16/19 07/16/19 12:45 13:00 14:05 14:50 Pulse 98 96 95 Resp B/P (MAP) 101/72 (82) 123/74 (90) 120/64 (82) Pulse Ox 94 95 95 95 O2 Delivery Nasal Cannula Nasal Cannula Nasal Cannula Nasal Cannula O2 Flow Rate 3.0 3.0 3.0 3.0 07/16/19 07/16/19 07/16/19 07/16/19 15:07 16:00 16:28 17:22 Temp 97.9 97.9 Pulse 89 89 88 Resp B/P (MAP) 127/75 (92) 117/72 (87) 122/81 (95) Pulse Ox 95 97 98 O2 Delivery Nasal Cannula Nasal Cannula Nasal Cannula Nasal Cannula O2 Flow Rate 3.0 3.0 3.0 3.0 07/16/19 07/16/19 07/16/19 07/16/19 18:01 19:00 20:00 20:00 Temp 98.9 98.9 Pulse 91 90 87 Resp B/P (MAP) 118/81 (93) 128/77 (94) 116/74 (88) Pulse Ox 97 98 96 O2 Delivery Nasal Cannula Nasal Cannula Nasal Cannula Nasal Cannula O2 Flow Rate 3.0 3.0 3.0 3.0 07/16/19 07/16/19 07/16/19 07/16/19 21:00 22:00 22:58 23:00 Pulse 88 90 90 87 Resp B/P (MAP) 119/75 (90) 115/70 (85) 115/70 (85) 119/80 (93) Pulse Ox 95 95 95 92 O2 Delivery Nasal Cannula Nasal Cannula Nasal Cannula Nasal Cannula O2 Flow Rate 3.0 5.0 5.0 5.0 07/16/19 07/16/19 07/17/19 07/17/19 23:59 23:59 01:00 02:02 Temp 98.7 98.7 Pulse 86 85 89 Resp B/P (MAP) 105/67 (80) 115/73 (87) 117/81 (93) Pulse Ox 95 97 98 O2 Delivery Nasal Cannula Nasal Cannula Nasal Cannula Nasal Cannula O2 Flow Rate 3.0 5.0 5.0 5.0 07/17/19 07/17/19 07/17/19 07/17/19 03:00 04:00 04:04 05:00 Temp 98.3 98.3 Pulse 92 95 92 Resp 24 26 28 B/P (MAP) 117/73 (88) 119/80 (93) 137/75 (95) Pulse Ox 95 95 96 O2 Delivery Nasal Cannula Nasal Cannula Nasal Cannula Nasal Cannula O2 Flow Rate 5.0 3.0 5.0 5.0 07/17/19 07/17/19 06:00 06:16 Pulse 95 Resp 23 B/P (MAP) 116/75 (89) Pulse Ox 96 96 O2 Delivery Nasal Cannula Nasal Cannula O2 Flow Rate 5.0 5.0 Intake and Output 07/16/19 07/16/19 07/17/19 15:00 23:00 07:00 Intake Total 1250 ml 50 ml 1685 ml Output Total 250 ml 560 ml 675 ml Balance 1000 ml -510 ml 1010 ml KEERTHI DURAN MD Jul 17, 2019 07:52
[2019-07-17] MEDS ORDERED: DEXTROSE 50% 25 GM / 50ML DISP.SYRIN. IV PRN (08:00)
--- NOTE | 2019-07-17 09:03 | EKG ---
[facility] [address] [place] [address] Test Date: 2019-07-16 Test Time: 09:53:43 Pat Name: DANAY AUGUSTE Department: Room: 115 1 Gender: M [employer]er Servicer: : 1965 Requested By: DEBORAH MANN Order Number: [id number] Reading MD: Richmond Cr MD Measurements Intervals [place] Rate: 129 P: GA: QRS: -53 QRSD: 106 T: 29 QT: 326 QTc: 479 Interpretive Statements SVT CONSIDER ANTERIOR INFARCT NON-SPECIFIC ST/T CHANGES Electronically Signed On 07-20-2019 11:50:48 CDT by Richmond Cr MD
[2019-07-17] MEDS: INSULIN LISPRO 300 UNITS/3 ML VIAL. SQ SCH ×6 (09:05→20:53)
[2019-07-17] MEDS: ASPIRIN CHEWABLE 81 MG TABLET. PO SCH (09:07)
[2019-07-17] MEDS ORDERED: CYCLOBENZAPRINE 10 MG TABLET. PO PRN (10:30)
[2019-07-17] MEDS ORDERED: ONDANSETRON PF 4 MG/2 ML VIAL. IV PRN (10:30)
--- NOTE | 2019-07-17 11:05 | PDOC2 ---
CONSULT Date of Consult Date of Consult DATE: 07/17/19 TIME: 10:58 Reason for Consult Reason for Consult: RENAL FAILURE Referring Physician Referring Physician: ANDRES Identification/Chief Complaint Chief Complaint SOB Source Source: Chart review, Patient History of Present Illness Reason for Visit: THIS IS A 53 YR OLD WITH SOB. DMITTED WITH FEVERS, COUGH AND CHILLS. CURRENTLY COVID 19 BEING RULED OUT. HAS A HX OF DM II AND HTN. HAS NOT BEEN SEEING DOCTOR IN YEARS. HAS NOCTURIA BUT NO PROBLEMS WITH EMPTYING HIS BLADDER. NO NEPHROTOXINS NOTED. NO OTHER HX. HAS LEUCOCYTOSIS AND IS UNDERGOING TX FOR PNEUMONIA AND SEPSIS AT THIS TIME. CR OF 5.4 WITH INCREASED LIFT'S AND CPK. MG LEVEL LOW AT 1.4. 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 ALCOHOL: none Drugs: None Lives: with Family Current Problem List Problem List Problems Medical Problems: (1) Acute renal failure Status: Acute (2) Hypoxemia Status: Acute (3) Sepsis Status: Acute (4) Severe sepsis Status: Acute (5) Suspected 2019-nCoV infection Status: Acute Current Medications Current Medications Current Medications Sodium Chloride 1,000 ml @ 1,000 mls/hr 1X ONCE IV Last administered on 07/16/19 10:22; Start 07/16/19 at 10:15; Stop 07/16/19 at 11:14; Status DC Ceftriaxone Sodium (Rocephin) 1 gm 1X ONCE IVP Last administered on 07/16/19at 10:25; Start 07/16/19 at 10:15; Stop 07/16/19 at 10:17; Status DC Azithromycin 250 ml @ 250 mls/hr 1X ONCE IV Last administered on 07/16/19at 10:15; Start 07/16/19 at 10:15; Stop 07/16/19 at 11:14; Status DC Acetaminophen (Tylenol) 1,000 mg 1X ONCE PO Last administered on 07/16/19at 10:25; Start 07/16/19 at 10:15; Stop 07/16/19 at 10:17; Status DC Ibuprofen (Motrin) 800 mg 1X ONCE PO Last administered on 07/16/19at 10:25; Start 07/16/19 at 10:15; Stop 07/16/19 at 10:17; Status DC Ibuprofen (Motrin) 800 mg 1X ONCE PO ; Start 07/16/19 at 11:00; Stop 07/16/19 at 11:03; Status DC Ceftriaxone Sodium (Rocephin) 1 gm DAILY07 IVP ; Start 07/17/19 at 07:00; Stop 07/16/19 at 13:59; Status DC Azithromycin 250 ml @ 250 mls/hr DAILY07 IV ; Start 07/17/19 at 07:00; Status Cancel Sodium Chloride (Normal Saline Flush) 3 ml QSHIFT PRN IV AFTER MEDS AND BLOOD DRAWS; Start 07/16/19 at 11:00 Sodium Chloride 1,000 ml @ 100 mls/hr Q10H IV ; Start 07/16/19 at 10:53; Stop 07/16/19 at 12:57; Status DC Ondansetron HCl (Zofran) 4 mg PRN Q4HRS PRN IV NAUSEA/VOMITING; Start 07/16/19 at 11:00; Stop 07/17/19 at 10:29; Status DC Al Hydroxide/Mg Hydroxide (Mylanta Plus Xs) 30 ml PRN DAILY PRN PO HEARTBURN / GAS; Start 07/16/19 at 11:00 Clonidine HCl (Catapres) 0.1 mg PRN Q6HRS PRN PO SBP>160 OR DBP>90; Start 07/16/19 at 11:00 Sodium Monofluorophosphate (Fleet Adult) 133 ml PRN DAILY PRN OR CONSTIPATION; Start 07/16/19 at 11:00 Docusate Sodium (Colace) 100 mg PRN BID PRN PO HARD STOOLS; Start 07/16/19 at 11:00 Albuterol/ Ipratropium (Duoneb) 3 ml Q4HRS NEB ; Start 07/16/19 at 12:00; Stop 07/16/19 at 14:10; Status DC Guaifenesin (Robitussin) 200 mg PRN Q4HRS PRN PO COUGH; Start 07/16/19 at 11:00 Enoxaparin Sodium (Lovenox 40mg Syringe) 40 mg Q24H SQ Last administered on 07/16/19at 16:40; Start 07/16/19 at 11:00 Ondansetron HCl (Zofran) 4 mg PRN Q8HRS PRN IV NAUSEA/VOMITING; Start 07/16/19 at 11:00; Stop 07/17/19 at 10:27; Status DC Sodium Chloride 1,000 ml @ 125 mls/hr Q8H IV ; Start 07/16/19 at 10:58; Stop 07/16/19 at 12:57; Status DC Insulin Human Lispro (HumaLOG) 0-7 UNITS TIDWMEALS SQ Last administered on 07/16/19at 18:00; Start 07/16/19 at 12:00; Stop 07/17/19 at 07:51; Status DC Dextrose (Dextrose 50%-Water Syringe) 12.5 gm PRN Q15MIN PRN IV SEE COMMENTS; Start 07/16/19 at 12:00 Sodium Chloride 1,000 ml @ 125 mls/hr Q8H IV Last administered on 07/16/19at 21:00; Start 07/16/19 at 13:00 Linezolid/Dextrose 300 ml @ 300 mls/hr Q12HR IV Last administered on 07/17/19at 09:06; Start 07/16/19 at 15:00 Piperacillin Sod/ Tazobactam Sod (Zosyn Per Pharmacy) 1 each PRN DAILY PRN MC SEE COMMENTS; Start 07/16/19 at 14:00; Status Cancel Piperacillin Sod/ Tazobactam Sod 2.25 gm/Sodium Chloride 50 ml @ 100 mls/hr Q6HRS IV Last administered on 07/17/19at 05:36; Start 07/16/19 at 14:00; Stop 07/17/19 at 07:52; Status DC Albuterol Sulfate (Ventolin Neb Soln) 2.5 mg PRN Q4HRS PRN NEB SHORTNESS OF BREATH; Start 07/16/19 at 14:15 Insulin Human Lispro (HumaLOG) 6 units 1X ONCE SQ Last administered on 07/16/19at 21:07; Start 07/16/19 at 21:30; Stop 07/16/19 at 21:31; Status DC Azithromycin 500 mg/Sodium Chloride 250 ml @ 250 mls/hr Q24H IV Last administered on 07/17/19at 06:42; Start 07/17/19 at 07:00 Acetaminophen/ Hydrocodone Bitart (Lortab 5/325) 1 tab PRN Q4HRS PRN PO MODERATE PAIN 4-6 Last administered on 07/17/19at 06:16; Start 07/17/19 at 06:15 Insulin Human Lispro (HumaLOG) 0-9 UNITS TIDACHC SQ ; Start 07/17/19 at 11:30 Dextrose (Dextrose 50%-Water Syringe) 12.5 gm PRN Q15MIN PRN IV SEE COMMENTS; Start 07/17/19 at 08:00 Atorvastatin Calcium (Lipitor) 20 mg QHS PO ; Start 07/17/19 at 21:00 Insulin Human Lispro (HumaLOG) 8 units TIDWMEALS SQ Last administered on 07/17/19at 09:05; Start 07/17/19 at 08:00 Insulin Glargine (Lantus Syringe) 28 unit QHS SQ ; Start 07/17/19 at 21:00 Aspirin (Aspirin Chewable) 81 mg DAILYWBKFT PO Last administered on 07/17/19at 09:07; Start 07/17/19 at 08:00 Piperacillin Sod/ Tazobactam Sod 2.25 gm/Sodium Chloride 50 ml @ 100 mls/hr Q8H IV ; Start 07/17/19 at 14:00 Ondansetron HCl (Zofran) 4 mg PRN Q4HRS PRN IV NAUSEA/VOMITING; Start 07/17/19 at 10:30 Lidocaine (Lidoderm) 1 patch DAILY TD ; Start 07/17/19 at 10:30 Cyclobenzaprine HCl (Flexeril) 10 mg PRN Q6HRS PRN PO MUSCLE SPASMS; Start 07/17/19 at 10:30 Miscellaneous (Lidoderm Patch Removal) 1 ea QHS MC ; Start 07/17/19 at 21:00 Active Scripts Active Glucophage (Metformin Hcl) 500 Mg Tablet 500 Mg PO BIDWMEALS Prinivil (Lisinopril) 5 Mg Tablet 10 Mg PO DAILY Levemir Flextouch (Insulin Detemir) 300 Units/3 Ml Insuln.pen 28 Units SQ QHS Novolog Flexpen (Insulin Aspart) 300 Units/3 Ml Insuln.pen 18 Units SQ TIDAC [Aspirin] 81 MG Tablet.dr 81 Mg PO DAILYWBKFT Lipitor (Atorvastatin Calcium) 20 Mg Tablet 20 Mg PO QHS Allergies Allergies: Coded Allergies: No Known Drug Allergies (Unverified , 08/02/14) ROS General: YES: Chills, Fatigue, Malaise, Appetite PSYCHOLOGICAL ROS: YES: Anxiety Eyes: Yes Decreased vision HEENT: YES: Heacaches Respiratory: YES: Cough, Shortness of breath Gastrointestinal: Yes Constipation Genitourinary: YES Other (NOCTURIA) Musculoskeletal: Yes Muscular Weakness Neurological: Yes Weakness Skin: Yes Dry Skin Physical Exam General: Alert, Oriented X3, Cooperative, No acute distress HEENT: Atraumatic Lungs: Clear to auscultation Heart: Regular rate, Normal S2 Abdomen: Normal bowel sounds, Soft, No tenderness Extremities: No cyanosis Skin: No breakdown Neuro: Normal speech, Sensation intact Psych/Mental Status: Mental status NL, Mood NL MUSCULOSKELETAL: No joint tenderness, No deformity, No swelling Vitals VITALS Vital Signs Date Time Temp Pulse Resp B/P (MAP) Pulse Ox O2 Delivery O2 Flow Rate FiO2 07/17/19 09:00 86 20 126/81 (96) 96 Nasal Cannula 5.0 07/17/19 07:00 98.3 98.3 Labs Labs Laboratory Tests Test 07/16/19 10:15 07/16/19 12:51 07/16/19 13:00 07/16/19 17:57 White Blood Count 20.3 x10^3/uL (4.0-11.0) Red Blood Count 4.70 x10^6/uL (4.30-5.70) Hemoglobin 14.7 g/dL (13.0-17.5) Hematocrit 41.9 % (39.0-53.0) Mean Corpuscular Volume 89 fL (79-100) Mean Corpuscular Hemoglobin 31 pg (25-35) Mean Corpuscular Hemoglobin Concent 35 g/dL (31-37) Red Cell Distribution Width 13.0 % (11.5-14.5) Platelet Count 207 x10^3/uL (140-400) Neutrophils (%) (Auto) 91 % (31-73) Lymphocytes (%) (Auto) 4 % (24-48) Monocytes (%) (Auto) 4 % (0-9) Eosinophils (%) (Auto) 0 % (0-3) Basophils (%) (Auto) 1 % (0-3) Neutrophils # (Auto) 18.4 x10^3/uL (1.8-7.7) Lymphocytes # (Auto) 0.9 x10^3/uL (1.0-4.8) Monocytes # (Auto) 0.9 x10^3/uL (0.0-1.1) Eosinophils # (Auto) 0.0 x10^3/uL (0.0-0.7) Basophils # (Auto) 0.1 x10^3/uL (0.0-0.2) Segmented Neutrophils % 75 % (35-66) Band Neutrophils % 14 % (0-9) Lymphocytes % 10 % (24-48) Monocytes % 1 % (0-10) Toxic Granulation Mod Platelet Estimate Adequate (ADEQUATE) Prothrombin Time 15.2 SEC (11.7-14.0) Prothromb Time International Ratio 1.2 (0.8-1.1) Activated Partial Thromboplast Time 36 SEC (24-38) Fibrinogen 1231 mg/dL (200-440) D-Dimer (Yulisa) 4.88 ug/mlFEU (0.00-0.50) Sodium Level 130 mmol/L (136-145) Potassium Level 3.7 mmol/L (3.5-5.1) Chloride Level 93 mmol/L (98-107) Carbon Dioxide Level 20 mmol/L (21-32) Anion Gap 17 (6-14) Blood Urea Nitrogen 55 mg/dL (8-26) Creatinine 4.9 mg/dL (0.7-1.3) Estimated GFR (Cockcroft-Gault) 15.1 BUN/Creatinine Ratio 11 (6-20) Glucose Level 493 mg/dL (70-99) Lactic Acid Level 1.8 mmol/L (0.4-2.0) Calcium Level 8.1 mg/dL (8.5-10.1) Magnesium Level 1.4 mg/dL (1.8-2.4) Total Bilirubin 0.5 mg/dL (0.2-1.0) Aspartate Amino Transf (AST/SGOT) 258 U/L (15-37) Alanine Aminotransferase (ALT/SGPT) 76 U/L (16-63) Alkaline Phosphatase 57 U/L (46-116) Troponin I Quantitative 0.116 ng/mL (0.000-0.055) RT-Hep-L-Type Natriuretic Peptide 958 pg/mL (0-124) Total Protein 6.6 g/dL (6.4-8.2) Albumin 2.9 g/dL (3.4-5.0) Albumin/Globulin Ratio 0.8 (1.0-1.7) Lipase 106 U/L (73-393) Procalcitonin 69.89 ng/mL (0.00-0.10) Mycoplasma Serology (LAB) Negative (NEGATIVE) Glucose (Fingerstick) 467 mg/dL (70-99) 441 mg/dL (70-99) Urine Collection Type U cath Urine Color Carly Urine Clarity Cloudy Urine pH 5.0 (<5.0-8.0) Urine Specific [place] 1.020 (1.000-1.030) Urine Protein 100 mg/dL (NEG-TRACE) Urine Glucose (UA) 500 mg/dL (NEG) Urine Ketones (Stick) Trace mg/dL (NEG) Urine Blood Large (NEG) Urine Nitrite Negative (NEG) Urine Bilirubin Small (NEG) Urine Urobilinogen Dipstick 0.2 mg/dL (0.2 mg/dL) Urine Leukocyte Esterase Small (NEG) Urine RBC 3-5 /HPF (0-2) Urine WBC 1-4 /HPF (0-4) Urine Amorphous Sediment Present /HPF Urine Bacteria Few /HPF (0-FEW) Test 07/16/19 20:55 07/16/19 23:35 07/17/19 03:30 07/17/19 08:47 Glucose (Fingerstick) 433 mg/dL (70-99) 346 mg/dL (70-99) 249 mg/dL (70-99) White Blood Count 12.3 x10^3/uL (4.0-11.0) Red Blood Count 4.62 x10^6/uL (4.30-5.70) Hemoglobin 14.3 g/dL (13.0-17.5) Hematocrit 40.8 % (39.0-53.0) Mean Corpuscular Volume 89 fL (79-100) Mean Corpuscular Hemoglobin 31 pg (25-35) Mean Corpuscular Hemoglobin Concent 35 g/dL (31-37) Red Cell Distribution Width 13.1 % (11.5-14.5) Platelet Count 185 x10^3/uL (140-400) Neutrophils (%) (Auto) 92 % (31-73) Lymphocytes (%) (Auto) 4 % (24-48) Monocytes (%) (Auto) 4 % (0-9) Eosinophils (%) (Auto) 0 % (0-3) Basophils (%) (Auto) 1 % (0-3) Neutrophils # (Auto) 11.3 x10^3/uL (1.8-7.7) Lymphocytes # (Auto) 0.4 x10^3/uL (1.0-4.8) Monocytes # (Auto) 0.5 x10^3/uL (0.0-1.1) Eosinophils # (Auto) 0.0 x10^3/uL (0.0-0.7) Basophils # (Auto) 0.1 x10^3/uL (0.0-0.2) Sodium Level 136 mmol/L (136-145) Potassium Level 4.0 mmol/L (3.5-5.1) Chloride Level 100 mmol/L (98-107) Carbon Dioxide Level 22 mmol/L (21-32) Anion Gap 14 (6-14) Blood Urea Nitrogen 61 mg/dL (8-26) Creatinine 5.4 mg/dL (0.7-1.3) Estimated GFR (Cockcroft-Gault) 13.5 BUN/Creatinine Ratio 11 (6-20) Glucose Level 283 mg/dL (70-99) Calcium Level 7.8 mg/dL (8.5-10.1) Total Bilirubin 0.2 mg/dL (0.2-1.0) Aspartate Amino Transf (AST/SGOT) 182 U/L (15-37) Alanine Aminotransferase (ALT/SGPT) 65 U/L (16-63) Alkaline Phosphatase 76 U/L (46-116) Lactate Dehydrogenase 622 U/L (85-227) Creatine Kinase 76634 U/L (39-308) C-Reactive Protein, Quantitative 322.0 mg/L (0-3.3) Total Protein 6.6 g/dL (6.4-8.2) Albumin 2.1 g/dL (3.4-5.0) Albumin/Globulin Ratio 0.5 (1.0-1.7) Laboratory Tests Test 07/16/19 12:51 07/16/19 13:00 07/16/19 17:57 07/16/19 20:55 Glucose (Fingerstick) 467 mg/dL (70-99) 441 mg/dL (70-99) 433 mg/dL (70-99) Urine Collection Type U cath Urine Color Carly Urine Clarity Cloudy Urine pH 5.0 (<5.0-8.0) Urine Specific [place] 1.020 (1.000-1.030) Urine Protein 100 mg/dL (NEG-TRACE) Urine Glucose (UA) 500 mg/dL (NEG) Urine Ketones (Stick) Trace mg/dL (NEG) Urine Blood Large (NEG) Urine Nitrite Negative (NEG) Urine Bilirubin Small (NEG) Urine Urobilinogen Dipstick 0.2 mg/dL (0.2 mg/dL) Urine Leukocyte Esterase Small (NEG) Urine RBC 3-5 /HPF (0-2) Urine WBC 1-4 /HPF (0-4) Urine Amorphous Sediment Present /HPF Urine Bacteria Few /HPF (0-FEW) Test 07/16/19 23:35 07/17/19 03:30 07/17/19 08:47 Glucose (Fingerstick) 346 mg/dL (70-99) 249 mg/dL (70-99) White Blood Count 12.3 x10^3/uL (4.0-11.0) Red Blood Count 4.62 x10^6/uL (4.30-5.70) Hemoglobin 14.3 g/dL (13.0-17.5) Hematocrit 40.8 % (39.0-53.0) Mean Corpuscular Volume 89 fL (79-100) Mean Corpuscular Hemoglobin 31 pg (25-35) Mean Corpuscular Hemoglobin Concent 35 g/dL (31-37) Red Cell Distribution Width 13.1 % (11.5-14.5) Platelet Count 185 x10^3/uL (140-400) Neutrophils (%) (Auto) 92 % (31-73) Lymphocytes (%) (Auto) 4 % (24-48) Monocytes (%) (Auto) 4 % (0-9) Eosinophils (%) (Auto) 0 % (0-3) Basophils (%) (Auto) 1 % (0-3) Neutrophils # (Auto) 11.3 x10^3/uL (1.8-7.7) Lymphocytes # (Auto) 0.4 x10^3/uL (1.0-4.8) Monocytes # (Auto) 0.5 x10^3/uL (0.0-1.1) Eosinophils # (Auto) 0.0 x10^3/uL (0.0-0.7) Basophils # (Auto) 0.1 x10^3/uL (0.0-0.2) Sodium Level 136 mmol/L (136-145) Potassium Level 4.0 mmol/L (3.5-5.1) Chloride Level 100 mmol/L (98-107) Carbon Dioxide Level 22 mmol/L (21-32) Anion Gap 14 (6-14) Blood Urea Nitrogen 61 mg/dL (8-26) Creatinine 5.4 mg/dL (0.7-1.3) Estimated GFR (Cockcroft-Gault) 13.5 BUN/Creatinine Ratio 11 (6-20) Glucose Level 283 mg/dL (70-99) Calcium Level 7.8 mg/dL (8.5-10.1) Total Bilirubin 0.2 mg/dL (0.2-1.0) Aspartate Amino Transf (AST/SGOT) 182 U/L (15-37) Alanine Aminotransferase (ALT/SGPT) 65 U/L (16-63) Alkaline Phosphatase 76 U/L (46-116) Lactate Dehydrogenase 622 U/L (85-227) Creatine Kinase 97803 U/L (39-308) C-Reactive Protein, Quantitative 322.0 mg/L (0-3.3) Total Protein 6.6 g/dL (6.4-8.2) Albumin 2.1 g/dL (3.4-5.0) Albumin/Globulin Ratio 0.5 (1.0-1.7) Assessment/Plan Assessment/Plan IMP RENAL FAILURE-ACUTE WITH CR OF 5.4 PROB CKD - UNKNOWN STAGE RHABDOMYOLYSIS SEPSIS PROB PNEUMONIA LEUCOCYTOSIS HYPONATREMIA LOW MAG PLAN HYDRATION SERIAL CPK HANCOCK ANTIBIOTICS RULE OUT COVID 19 REPLACE MAG RENAL SONOGRAM WILL FOLLOW UPDATED FAMILY FEDE JENKINS MD Jul 17, 2019 11:05
--- NOTE | 2019-07-17 11:09 | PDOC ---
PULMONARY PROGRESS NOTES Subjective more alert,no soa Vitals Vital Signs Date Time Temp Pulse Resp B/P (MAP) Pulse Ox O2 Delivery O2 Flow Rate FiO2 07/17/19 09:00 86 20 126/81 (96) 96 Nasal Cannula 5.0 07/17/19 07:00 98.3 98.3 Comments visual exam done due to COVID-19 suspicion no soa, no rash no edema Labs Laboratory Tests Test 07/16/19 10:15 07/16/19 12:51 07/16/19 13:00 07/16/19 17:57 White Blood Count 20.3 x10^3/uL (4.0-11.0) Red Blood Count 4.70 x10^6/uL (4.30-5.70) Hemoglobin 14.7 g/dL (13.0-17.5) Hematocrit 41.9 % (39.0-53.0) Mean Corpuscular Volume 89 fL (79-100) Mean Corpuscular Hemoglobin 31 pg (25-35) Mean Corpuscular Hemoglobin Concent 35 g/dL (31-37) Red Cell Distribution Width 13.0 % (11.5-14.5) Platelet Count 207 x10^3/uL (140-400) Neutrophils (%) (Auto) 91 % (31-73) Lymphocytes (%) (Auto) 4 % (24-48) Monocytes (%) (Auto) 4 % (0-9) Eosinophils (%) (Auto) 0 % (0-3) Basophils (%) (Auto) 1 % (0-3) Neutrophils # (Auto) 18.4 x10^3/uL (1.8-7.7) Lymphocytes # (Auto) 0.9 x10^3/uL (1.0-4.8) Monocytes # (Auto) 0.9 x10^3/uL (0.0-1.1) Eosinophils # (Auto) 0.0 x10^3/uL (0.0-0.7) Basophils # (Auto) 0.1 x10^3/uL (0.0-0.2) Segmented Neutrophils % 75 % (35-66) Band Neutrophils % 14 % (0-9) Lymphocytes % 10 % (24-48) Monocytes % 1 % (0-10) Toxic Granulation Mod Platelet Estimate Adequate (ADEQUATE) Prothrombin Time 15.2 SEC (11.7-14.0) Prothromb Time International Ratio 1.2 (0.8-1.1) Activated Partial Thromboplast Time 36 SEC (24-38) Fibrinogen 1231 mg/dL (200-440) D-Dimer (Yulisa) 4.88 ug/mlFEU (0.00-0.50) Sodium Level 130 mmol/L (136-145) Potassium Level 3.7 mmol/L (3.5-5.1) Chloride Level 93 mmol/L (98-107) Carbon Dioxide Level 20 mmol/L (21-32) Anion Gap 17 (6-14) Blood Urea Nitrogen 55 mg/dL (8-26) Creatinine 4.9 mg/dL (0.7-1.3) Estimated GFR (Cockcroft-Gault) 15.1 BUN/Creatinine Ratio 11 (6-20) Glucose Level 493 mg/dL (70-99) Lactic Acid Level 1.8 mmol/L (0.4-2.0) Calcium Level 8.1 mg/dL (8.5-10.1) Magnesium Level 1.4 mg/dL (1.8-2.4) Total Bilirubin 0.5 mg/dL (0.2-1.0) Aspartate Amino Transf (AST/SGOT) 258 U/L (15-37) Alanine Aminotransferase (ALT/SGPT) 76 U/L (16-63) Alkaline Phosphatase 57 U/L (46-116) Troponin I Quantitative 0.116 ng/mL (0.000-0.055) PI-Juv-T-Type Natriuretic Peptide 958 pg/mL (0-124) Total Protein 6.6 g/dL (6.4-8.2) Albumin 2.9 g/dL (3.4-5.0) Albumin/Globulin Ratio 0.8 (1.0-1.7) Lipase 106 U/L (73-393) Procalcitonin 69.89 ng/mL (0.00-0.10) Mycoplasma Serology (LAB) Negative (NEGATIVE) Glucose (Fingerstick) 467 mg/dL (70-99) 441 mg/dL (70-99) Urine Collection Type U cath Urine Color Carly Urine Clarity Cloudy Urine pH 5.0 (<5.0-8.0) Urine Specific [place] 1.020 (1.000-1.030) Urine Protein 100 mg/dL (NEG-TRACE) Urine Glucose (UA) 500 mg/dL (NEG) Urine Ketones (Stick) Trace mg/dL (NEG) Urine Blood Large (NEG) Urine Nitrite Negative (NEG) Urine Bilirubin Small (NEG) Urine Urobilinogen Dipstick 0.2 mg/dL (0.2 mg/dL) Urine Leukocyte Esterase Small (NEG) Urine RBC 3-5 /HPF (0-2) Urine WBC 1-4 /HPF (0-4) Urine Amorphous Sediment Present /HPF Urine Bacteria Few /HPF (0-FEW) Test 07/16/19 20:55 07/16/19 23:35 07/17/19 03:30 07/17/19 08:47 Glucose (Fingerstick) 433 mg/dL (70-99) 346 mg/dL (70-99) 249 mg/dL (70-99) White Blood Count 12.3 x10^3/uL (4.0-11.0) Red Blood Count 4.62 x10^6/uL (4.30-5.70) Hemoglobin 14.3 g/dL (13.0-17.5) Hematocrit 40.8 % (39.0-53.0) Mean Corpuscular Volume 89 fL (79-100) Mean Corpuscular Hemoglobin 31 pg (25-35) Mean Corpuscular Hemoglobin Concent 35 g/dL (31-37) Red Cell Distribution Width 13.1 % (11.5-14.5) Platelet Count 185 x10^3/uL (140-400) Neutrophils (%) (Auto) 92 % (31-73) Lymphocytes (%) (Auto) 4 % (24-48) Monocytes (%) (Auto) 4 % (0-9) Eosinophils (%) (Auto) 0 % (0-3) Basophils (%) (Auto) 1 % (0-3) Neutrophils # (Auto) 11.3 x10^3/uL (1.8-7.7) Lymphocytes # (Auto) 0.4 x10^3/uL (1.0-4.8) Monocytes # (Auto) 0.5 x10^3/uL (0.0-1.1) Eosinophils # (Auto) 0.0 x10^3/uL (0.0-0.7) Basophils # (Auto) 0.1 x10^3/uL (0.0-0.2) Sodium Level 136 mmol/L (136-145) Potassium Level 4.0 mmol/L (3.5-5.1) Chloride Level 100 mmol/L (98-107) Carbon Dioxide Level 22 mmol/L (21-32) Anion Gap 14 (6-14) Blood Urea Nitrogen 61 mg/dL (8-26) Creatinine 5.4 mg/dL (0.7-1.3) Estimated GFR (Cockcroft-Gault) 13.5 BUN/Creatinine Ratio 11 (6-20) Glucose Level 283 mg/dL (70-99) Calcium Level 7.8 mg/dL (8.5-10.1) Total Bilirubin 0.2 mg/dL (0.2-1.0) Aspartate Amino Transf (AST/SGOT) 182 U/L (15-37) Alanine Aminotransferase (ALT/SGPT) 65 U/L (16-63) Alkaline Phosphatase 76 U/L (46-116) Lactate Dehydrogenase 622 U/L (85-227) Creatine Kinase 41374 U/L (39-308) C-Reactive Protein, Quantitative 322.0 mg/L (0-3.3) Total Protein 6.6 g/dL (6.4-8.2) Albumin 2.1 g/dL (3.4-5.0) Albumin/Globulin Ratio 0.5 (1.0-1.7) Laboratory Tests Test 07/16/19 12:51 07/16/19 13:00 07/16/19 17:57 07/16/19 20:55 Glucose (Fingerstick) 467 mg/dL (70-99) 441 mg/dL (70-99) 433 mg/dL (70-99) Urine Collection Type U cath Urine Color Carly Urine Clarity Cloudy Urine pH 5.0 (<5.0-8.0) Urine Specific [place] 1.020 (1.000-1.030) Urine Protein 100 mg/dL (NEG-TRACE) Urine Glucose (UA) 500 mg/dL (NEG) Urine Ketones (Stick) Trace mg/dL (NEG) Urine Blood Large (NEG) Urine Nitrite Negative (NEG) Urine Bilirubin Small (NEG) Urine Urobilinogen Dipstick 0.2 mg/dL (0.2 mg/dL) Urine Leukocyte Esterase Small (NEG) Urine RBC 3-5 /HPF (0-2) Urine WBC 1-4 /HPF (0-4) Urine Amorphous Sediment Present /HPF Urine Bacteria Few /HPF (0-FEW) Test 07/16/19 23:35 07/17/19 03:30 07/17/19 08:47 Glucose (Fingerstick) 346 mg/dL (70-99) 249 mg/dL (70-99) White Blood Count 12.3 x10^3/uL (4.0-11.0) Red Blood Count 4.62 x10^6/uL (4.30-5.70) Hemoglobin 14.3 g/dL (13.0-17.5) Hematocrit 40.8 % (39.0-53.0) Mean Corpuscular Volume 89 fL (79-100) Mean Corpuscular Hemoglobin 31 pg (25-35) Mean Corpuscular Hemoglobin Concent 35 g/dL (31-37) Red Cell Distribution Width 13.1 % (11.5-14.5) Platelet Count 185 x10^3/uL (140-400) Neutrophils (%) (Auto) 92 % (31-73) Lymphocytes (%) (Auto) 4 % (24-48) Monocytes (%) (Auto) 4 % (0-9) Eosinophils (%) (Auto) 0 % (0-3) Basophils (%) (Auto) 1 % (0-3) Neutrophils # (Auto) 11.3 x10^3/uL (1.8-7.7) Lymphocytes # (Auto) 0.4 x10^3/uL (1.0-4.8) Monocytes # (Auto) 0.5 x10^3/uL (0.0-1.1) Eosinophils # (Auto) 0.0 x10^3/uL (0.0-0.7) Basophils # (Auto) 0.1 x10^3/uL (0.0-0.2) Sodium Level 136 mmol/L (136-145) Potassium Level 4.0 mmol/L (3.5-5.1) Chloride Level 100 mmol/L (98-107) Carbon Dioxide Level 22 mmol/L (21-32) Anion Gap 14 (6-14) Blood Urea Nitrogen 61 mg/dL (8-26) Creatinine 5.4 mg/dL (0.7-1.3) Estimated GFR (Cockcroft-Gault) 13.5 BUN/Creatinine Ratio 11 (6-20) Glucose Level 283 mg/dL (70-99) Calcium Level 7.8 mg/dL (8.5-10.1) Total Bilirubin 0.2 mg/dL (0.2-1.0) Aspartate Amino Transf (AST/SGOT) 182 U/L (15-37) Alanine Aminotransferase (ALT/SGPT) 65 U/L (16-63) Alkaline Phosphatase 76 U/L (46-116) Lactate Dehydrogenase 622 U/L (85-227) Creatine Kinase 70775 U/L (39-308) C-Reactive Protein, Quantitative 322.0 mg/L (0-3.3) Total Protein 6.6 g/dL (6.4-8.2) Albumin 2.1 g/dL (3.4-5.0) Albumin/Globulin Ratio 0.5 (1.0-1.7) Medications Active Scripts Medications Dose Route/Sig Max Daily Dose Days Date Category Glucophage (Metformin Hcl) 500 Mg Tablet 500 Mg PO BIDWMEALS 08/05/14 Rx Prinivil (Lisinopril) 5 Mg Tablet 10 Mg PO DAILY 08/05/14 Rx Levemir Flextouch (Insulin Detemir) 300 Units/3 Ml Insuln.pen 28 Units SQ QHS 08/05/14 Rx Novolog Flexpen (Insulin Aspart) 300 Units/3 Ml Insuln.pen 18 Units SQ TIDAC 08/05/14 Rx [Aspirin] 81 MG Tablet.dr 81 Mg PO DAILYWBKFT 08/05/14 Rx Lipitor (Atorvastatin Calcium) 20 Mg Tablet 20 Mg PO QHS 08/05/14 Rx Impression . 1. Acute hypoxic respiratory failure secondary to sepsis. 2. Metabolic encephalopathy secondary to sepsis. 3. Marked consolidation in the left lower lobe along with fever and leukocytosis. Highly consistent with pneumonia, could be aspiration related due to altered mental status. COVID-19 is also strongly suspected with multisystem organ involvement. 4. Hyponatremia. 5. Acute kidney injury with metabolic acidosis. 6. Hypomagnesemia. 7. Mildly increased troponin level. 8. Abnormal D-dimer. Could be nonspecific. However, we will do venous Dopplers once COVID test is negative. 9. Marked leukocytosis secondary to pneumonia. Plan . 1. Continue with present oxygen. 2. clinically better 3. COVID test is being obtained and is pending. 4. IV hydration and monitor renal function closely. 5. Follow renal recommendations. 6. Follow ID recommendations. 7. Obtain all cultures. 8. Once COVID is ruled out, they will do a noncontrast CT chest to better assess for pneumonia. 9. Monitor LFTs. May need GI consult and recommendation. 10. DVT prophylaxis. 11. Replace magnesium prn 12. Venous Dopplers of lower extremities. 13. Cardiology rec regarding abnormal troponin. d/w RN/ Dr Mccrary. cct 30 min ESCOBAR SERVIN MD Jul 17, 2019 11:09
--- NOTE | 2019-07-17 11:32 | PDOC ---
ASHLEY PEREZ SENIOR MORTGAGE UNDERWRITER 07/17/19 1132: CARDIO Progress Notes Date and Time Date of Service 07/17/19 Time of Evaluation 1120 Subjective Subjective: No Chest Pain, No Palpitations Vitals Vitals Vital Signs Date Time Temp Pulse Resp B/P (MAP) Pulse Ox O2 Delivery O2 Flow Rate FiO2 07/17/19 09:00 86 20 126/81 (96) 96 Nasal Cannula 5.0 07/17/19 07:00 98.3 98.3 Weight Weight [ ] Input and Output Intake and Output Intake and Output 07/17/19 07:00 Intake Total 3035 ml Output Total 1485 ml Balance 1550 ml Intake Oral 50 ml IV Total 2985 ml Output Urine Total 1485 ml Laboratory Labs Laboratory Tests Test 07/16/19 12:51 07/16/19 13:00 07/16/19 17:57 07/16/19 20:55 Glucose (Fingerstick) 467 mg/dL (70-99) 441 mg/dL (70-99) 433 mg/dL (70-99) Urine Collection Type U cath Urine Color Carly Urine Clarity Cloudy Urine pH 5.0 (<5.0-8.0) Urine Specific [place] 1.020 (1.000-1.030) Urine Protein 100 mg/dL (NEG-TRACE) Urine Glucose (UA) 500 mg/dL (NEG) Urine Ketones (Stick) Trace mg/dL (NEG) Urine Blood Large (NEG) Urine Nitrite Negative (NEG) Urine Bilirubin Small (NEG) Urine Urobilinogen Dipstick 0.2 mg/dL (0.2 mg/dL) Urine Leukocyte Esterase Small (NEG) Urine RBC 3-5 /HPF (0-2) Urine WBC 1-4 /HPF (0-4) Urine Amorphous Sediment Present /HPF Urine Bacteria Few /HPF (0-FEW) Test 07/16/19 23:35 07/17/19 03:30 07/17/19 08:47 Glucose (Fingerstick) 346 mg/dL (70-99) 249 mg/dL (70-99) White Blood Count 12.3 x10^3/uL (4.0-11.0) Red Blood Count 4.62 x10^6/uL (4.30-5.70) Hemoglobin 14.3 g/dL (13.0-17.5) Hematocrit 40.8 % (39.0-53.0) Mean Corpuscular Volume 89 fL (79-100) Mean Corpuscular Hemoglobin 31 pg (25-35) Mean Corpuscular Hemoglobin Concent 35 g/dL (31-37) Red Cell Distribution Width 13.1 % (11.5-14.5) Platelet Count 185 x10^3/uL (140-400) Neutrophils (%) (Auto) 92 % (31-73) Lymphocytes (%) (Auto) 4 % (24-48) Monocytes (%) (Auto) 4 % (0-9) Eosinophils (%) (Auto) 0 % (0-3) Basophils (%) (Auto) 1 % (0-3) Neutrophils # (Auto) 11.3 x10^3/uL (1.8-7.7) Lymphocytes # (Auto) 0.4 x10^3/uL (1.0-4.8) Monocytes # (Auto) 0.5 x10^3/uL (0.0-1.1) Eosinophils # (Auto) 0.0 x10^3/uL (0.0-0.7) Basophils # (Auto) 0.1 x10^3/uL (0.0-0.2) Sodium Level 136 mmol/L (136-145) Potassium Level 4.0 mmol/L (3.5-5.1) Chloride Level 100 mmol/L (98-107) Carbon Dioxide Level 22 mmol/L (21-32) Anion Gap 14 (6-14) Blood Urea Nitrogen 61 mg/dL (8-26) Creatinine 5.4 mg/dL (0.7-1.3) Estimated GFR (Cockcroft-Gault) 13.5 BUN/Creatinine Ratio 11 (6-20) Glucose Level 283 mg/dL (70-99) Calcium Level 7.8 mg/dL (8.5-10.1) Total Bilirubin 0.2 mg/dL (0.2-1.0) Aspartate Amino Transf (AST/SGOT) 182 U/L (15-37) Alanine Aminotransferase (ALT/SGPT) 65 U/L (16-63) Alkaline Phosphatase 76 U/L (46-116) Lactate Dehydrogenase 622 U/L (85-227) Creatine Kinase 84484 U/L (39-308) C-Reactive Protein, Quantitative 322.0 mg/L (0-3.3) Total Protein 6.6 g/dL (6.4-8.2) Albumin 2.1 g/dL (3.4-5.0) Albumin/Globulin Ratio 0.5 (1.0-1.7) Microbiology Micro Microbiology 07/16/19 Urine Culture - Final, Complete 07/16/19 Blood Culture - Preliminary, Resulted NO GROWTH AFTER 1 DAY Physical Exam HEENT: Neck Supple W Full Motion Chest: Symmetric LUNGS: Clear to Auscultation Heart: S1S2, RRR Abdomen: Soft N/T Extremities: Other (trace bilateral LE edema ) Neurology: alert, oriented, follow commands Assessment Assessment 1. Acute respiratory failure with possible PNA. COVID pending 2. Leukocytosis, fevers, ? sepsis 3. BERTIN, ? CKD 4. Hypertension 5. Diabetes, II; uncontrolled 6. Elevated troponin; 0.116. EKG with nonspecific ST segment changes V2 and V3. Most probable type II, demand ischemia in setting of BERTIN, fevers/infection. 7. Rhabdomyolysis 8. Elevated d-dimer Recommendations Repeat troponin Lipids, recheck Mg ASA Echo to assess LV systolic function if COVID negative Ongoing antibiotic therapy Avoid nephrotoxins. Supportive care Consider outpatient ischemic evaluation Justicifation of Admission Dx: Justifications for Admission: Justification of Admission Dx: Yes Respiratory Failure: Severe Resp Distress Aspiration Pneumonia: Hypoxemia Comminuty Aquired Pneumonia: Hypoxemia Chronic Renal Failure: Electrolyte Abnormality Sepsis: Altered Mental Status Acute COPD Exacerbation: Acute COPD Exacerbation SD: Acute NSTEMI ALLISON FIGUEROA MD 07/17/19 1644: CARDIO Progress Notes Assessment Assessment Patient seen and evaluated I agree with our nurse practitioners assessment and plan. Acute respiratory failure with possible PNA. COVID pending Leukocytosis BERTIN Elevated troponin; 0.116. EKG with nonspecific ST segment changes V2 and V3. Most probable type II, demand ischemia in setting of BERTIN, fevers/infection. Ec ho once COVID negative. ASHLEY PEREZ APRN Jul 17, 2019 11:32 ALLISON FIGUEROA MD Jul 17, 2019 16:44
[2019-07-17 12:17] LABS: CHOLESTEROL/HDL RATIO 11.8
[2019-07-17] MEDS: IV NORMAL SALINE 1000ML BAG 1,000 ML IV SCH ×3 (13:00→19:11)
[2019-07-17] MEDS: ENOXAPARIN 40 MG/0.4 ML SYRINGE. SQ SCH (13:17)
[2019-07-17] MEDS: LIDOCAINE (700MG/PATCH) PATCH. TD SCH (13:18)
--- NOTE | 2019-07-17 13:41 | NUR ---
SS following for discharge planning. SS reviewed pt chart and discussed with pt RN. Pt is from home and is currently requiring oxygen. COVID19 pending. Pt on IV Zosyn, Zyvox, and Azithromycin. SS will continue to follow for discharge planning.
--- NOTE | 2019-07-17 20:50 | RAD ---
Exam: CT of chest without contrast INDICATION: Pneumonia TECHNIQUE: Sequential axial images through the chest obtained without IV contrast. Sagittal and coronal reformatted images were reconstructed from the axial data and reviewed. Comparisons: Chest x-ray 07/16/2019 FINDINGS: Utilized portions of the thyroid are unremarkable. No enlarged mediastinal lymph nodes are identified. Heart size is normal. No pericardial effusion. Thoracic aorta has a normal course and caliber. Pulmonary artery is not enlarged. Airways are patent. There is consolidative changes within the left upper lobe with groundglass opacity. Main lungs are clear. No suspicious lung nodules. Trace bilateral pleural effusions. Visualized upper abdomen is unremarkable. No suspicious osseous lesions or acute fractures. IMPRESSION: 1. Left upper lobe pneumonia. 2. Trace bilateral pleural effusions. Exposure: One or more of the following in the visualized dose reduction techniques were utilized for this examination: 1. Automated exposure control 2. Adjustment of the MA and/or KV according to patient size 3. Use of iterative of reconstructive technique Electronically signed by: Jonah Cook MD (07/17/2019 8:47 PM) [id number]
[2019-07-17] MEDS: INSULIN GLARGINE SYRINGE. SQ SCH (21:00)
[2019-07-17] MEDS: PATCH REMOVAL. MC SCH (21:00)
[2019-07-17] MEDS ORDERED: ATORVASTATIN CALCIUM 20 MG TABLET PO SCH (21:00)
--- NOTE | 2019-07-17 22:01 | RAD ---
Exam: Ultrasound renal complete Indication: BERTIN Technique: Real-time grayscale and color Doppler images of the kidney were obtained by the department diagnostic imaging manager. Comparisons: None FINDINGS: Right kidney measures 13.9 x 7.5 x 5.68 cm. No hydronephrosis. Left kidney measures 11.8 x 7.0 x 6.5 cm. No hydronephrosis. Bladder is decompressed with Dennison balloon in the bladder. Diffuse hepatic steatosis. IMPRESSION: 1. No hydronephrosis. 2. Diffuse hepatic steatosis. Electronically signed by: Jonah Cook MD (07/17/2019 9:58 PM) [id number]
--- NOTE | 2019-07-17 23:16 | RAD ---
INDICATION: Reason: abnormal d dimer; Severe leg pain / Spl. Instructions: / History: COMPARISON: None. TECHNIQUE: Grayscale, color and doppler ultrasound images were obtained of the bilateral lower extremity venous vasculature. RIGHT: No thrombus identified in the common femoral vein, femoral vein, popliteal vein or visualized calf veins. LEFT: No thrombus identified in the common femoral vein, femoral vein, popliteal vein or visualized calf veins. There is some slow flow visualized. IMPRESSION: * No thrombus identified in deep venous system of bilateral lower extremities. Electronically signed by: Terrence Clark MD (07/17/2019 11:13 PM) [id number]
[2019-07-18 03:18] VITALS: BP 164/85
[2019-07-18 03:57] LABS: HEMATOCRIT 40.5 % (39.0-53.0); RED BLOOD COUNT 4.53 x10^6/uL (4.30-5.70); RED CELL DISTRIBUTION WIDTH 13.4 % (11.5-14.5)
[2019-07-18 05:08] LABS: CREATININE 4.2 mg/dL (0.7-1.3); GFR 18.1; MAGNESIUM 1.9 mg/dL (1.8-2.4); PHOSPHORUS 2.9 mg/dL (2.6-4.7); POTASSIUM 3.4 mmol/L (3.5-5.1)
[2019-07-18] MEDS: IV NORMAL SALINE 1000ML BAG 1,000 ML IV SCH ×2 (05:15→15:19)
[2019-07-18] MEDS: PIPERACILLIN/TAZOBACTAM 2.25 GM in IV NORMAL SALINE 50ML 50 ML IV SCH ×3 (05:15→22:15)
[2019-07-18] MEDS: AZITHROMYCIN 500 MG in IV NORMAL SALINE 250ML 250 ML IV SCH (06:37)
[2019-07-18 07:00] VITALS: BP 148/88
--- NOTE | 2019-07-18 08:18 | PDOC ---
Infectious Disease Note Subjective: Subjective Patient transferred out of ICU States feels better today though continues to feel weak Afebrile On 5 L O2 by nasal cannula Maintaining good urine output Denies fever, nausea, vomiting, worsening cough or shortness of breath, diarrhea, abdominal pain, rash Otherwise as above Vital Signs: Vital Signs Vital Signs Date Time Temp Pulse Resp B/P (MAP) Pulse Ox O2 Delivery O2 Flow Rate FiO2 07/18/19 07:00 97.6 90 22 148/88 (108) 93 Nasal Cannula 4.0 97.6 Physical Exam: PHYSICAL EXAM GENERAL: The patient is propped up in bed, appears comfortable though tired appearing HEENT: Pupils equally round. Normal conjunctivae. Oropharynx pink. No lesions seen. NECK: Supple. LUNGS: Diminished aeration. No accessory muscle use. CARDIAC: S1 and S2 regular. ABDOMEN: Obese, soft. No grimace or guarding to palpation. Bowel sounds present. GENITOURINARY: Indwelling Dennison in place. EXTREMITIES: No gross edema or cyanosis. SKIN: Warm to touch. No signs of rash. NEUROLOGIC: Alert oriented x3, grossly nonfocal Medications: Inpatient Meds: Current Medications Medications (Trade) Dose Ordered Sig/Joan Start Time Stop Time Status Last Admin Dose Admin Acetaminophen (Tylenol) 1,000 mg 1X ONCE 07/16/19 10:15 07/16/19 10:17 DC 07/16/19 10:25 1,000 MG Acetaminophen/ Hydrocodone Bitart (Lortab 5/325) 1 tab PRN Q4HRS PRN 07/17/19 06:15 07/17/19 06:16 1 TAB Al Hydroxide/Mg Hydroxide (Mylanta Plus Xs) 30 ml PRN DAILY PRN 07/16/19 11:00 Albuterol Sulfate (Ventolin Neb Soln) 2.5 mg PRN Q4HRS PRN 07/16/19 14:15 Albuterol/ Ipratropium (Duoneb) 3 ml Q4HRS 07/16/19 12:00 07/16/19 14:10 DC Aspirin (Aspirin Chewable) 81 mg DAILYWBKFT 07/17/19 08:00 07/17/19 09:07 81 MG Atorvastatin Calcium (Lipitor) 20 mg QHS 07/17/19 21:00 07/17/19 21:18 20 MG Azithromycin 250 ml @ 250 mls/hr DAILY07 07/17/19 07:00 Cancel Azithromycin 500 mg/Sodium Chloride 250 ml @ 250 mls/hr Q24H 07/17/19 07:00 07/18/19 06:37 250 MLS/HR Ceftriaxone Sodium (Rocephin) 1 gm DAILY07 07/17/19 07:00 07/16/19 13:59 DC Clonidine HCl (Catapres) 0.1 mg PRN Q6HRS PRN 07/16/19 11:00 Cyclobenzaprine HCl (Flexeril) 10 mg PRN Q6HRS PRN 07/17/19 10:30 Dextrose (Dextrose 50%-Water Syringe) 12.5 gm PRN Q15MIN PRN 07/17/19 08:00 Docusate Sodium (Colace) 100 mg PRN BID PRN 07/16/19 11:00 Enoxaparin Sodium (Lovenox 40mg Syringe) 40 mg Q24H 07/16/19 11:00 07/17/19 13:17 40 MG Guaifenesin (Robitussin) 200 mg PRN Q4HRS PRN 07/16/19 11:00 Ibuprofen (Motrin) 800 mg 1X ONCE 07/16/19 11:00 07/16/19 11:03 DC Insulin Glargine (Lantus Syringe) 28 unit QHS 07/17/19 21:00 Insulin Human Lispro (HumaLOG) 8 units TIDWMEALS 07/17/19 08:00 07/17/19 17:28 8 UNITS Lidocaine (Lidoderm) 1 patch DAILY 07/17/19 10:30 07/17/19 13:18 1 PATCH Linezolid/Dextrose 300 ml @ 300 mls/hr Q12HR 07/16/19 15:00 07/17/19 21:00 300 MLS/HR Miscellaneous (Lidoderm Patch Removal) 1 ea QHS 07/17/19 21:00 07/17/19 21:00 1 EA Ondansetron HCl (Zofran) 4 mg PRN Q4HRS PRN 07/17/19 10:30 Piperacillin Sod/ Tazobactam Sod (Zosyn Per Pharmacy) 1 each PRN DAILY PRN 07/16/19 14:00 Cancel Piperacillin Sod/ Tazobactam Sod 2.25 gm/Sodium Chloride 50 ml @ 100 mls/hr Q8H 07/17/19 14:00 07/18/19 05:15 100 MLS/HR Sodium Monofluorophosphate (Fleet Adult) 133 ml PRN DAILY PRN 07/16/19 11:00 Sodium Chloride 1,000 ml @ 125 mls/hr Q8H 07/16/19 13:00 07/18/19 05:15 125 MLS/HR Sodium Chloride (Normal Saline Flush) 3 ml QSHIFT PRN 07/16/19 11:00 Labs: Lab Laboratory Tests Test 07/17/19 08:47 07/17/19 13:22 07/17/19 16:51 07/17/19 20:42 Glucose (Fingerstick) 249 mg/dL (70-99) 265 mg/dL (70-99) 134 mg/dL (70-99) 90 mg/dL (70-99) Test 07/18/19 02:45 07/18/19 07:20 White Blood Count 11.0 x10^3/uL (4.0-11.0) Red Blood Count 4.53 x10^6/uL (4.30-5.70) Hemoglobin 14.0 g/dL (13.0-17.5) Hematocrit 40.5 % (39.0-53.0) Mean Corpuscular Volume 89 fL (79-100) Mean Corpuscular Hemoglobin 31 pg (25-35) Mean Corpuscular Hemoglobin Concent 35 g/dL (31-37) Red Cell Distribution Width 13.4 % (11.5-14.5) Platelet Count 185 x10^3/uL (140-400) Sodium Level 137 mmol/L (136-145) Potassium Level 3.4 mmol/L (3.5-5.1) Chloride Level 101 mmol/L (98-107) Carbon Dioxide Level 21 mmol/L (21-32) Anion Gap 15 (6-14) Blood Urea Nitrogen 59 mg/dL (8-26) Creatinine 4.2 mg/dL (0.7-1.3) Estimated GFR (Cockcroft-Gault) 18.1 Glucose Level 184 mg/dL (70-99) Calcium Level 8.0 mg/dL (8.5-10.1) Phosphorus Level 2.9 mg/dL (2.6-4.7) Magnesium Level 1.9 mg/dL (1.8-2.4) Creatine Kinase 96706 U/L (39-308) Glucose (Fingerstick) 226 mg/dL (70-99) Objective: Assessment: 1. Sepsis present on admission. Blood cultures pending so far 2. OMAR pneumonia. 3. Rhabdomyolysis CPK now 21 K 4. Fever and leukocytosis. Improving 5. Acute encephalopathy. Likely metabolic,improving 6. Acute kidney injury. 7. Transaminitis. 8. Diabetes. 9. Hypertension. 10. Obesity. 11. Sleep apnea. 12 hypokalemia 13. COVID-19 negative Plan: Plan of Care cont Zyvox and Zosyn( renal dosing) Continue azithromycin for atypical coverage Follow-up strep pnuemo/legionella Ag COVID-19 neg f/u cultures Monitor am labs Maintain aspiration precautions Discussed with nursing staff АЛЕКСАНДР FARLEY MD Jul 18, 2019 08:18
[2019-07-18] MEDS: ASPIRIN CHEWABLE 81 MG TABLET. PO SCH (08:56)
[2019-07-18] MEDS: LIDOCAINE (700MG/PATCH) PATCH. TD SCH (09:00)
[2019-07-18] MEDS: INSULIN LISPRO 300 UNITS/3 ML VIAL. SQ SCH ×7 (09:05→20:36)
--- NOTE | 2019-07-18 10:49 | NUR ---
SS following up with discharge planning. SS reviewed pt chart and discussed with pt RN. Pt is currently requiring oxygen. Pt on IV Zosyn and Zyvox. PT/OT ordered. Pt COVID19 negative. SS will continue to follow for discharge planning.
--- NOTE | 2019-07-18 11:09 | PDOC ---
PULMONARY PROGRESS NOTES Subjective more alert,no soa wants to go home Vitals Vital Signs Date Time Temp Pulse Resp B/P (MAP) Pulse Ox O2 Delivery O2 Flow Rate FiO2 07/18/19 07:00 97.6 90 22 148/88 (108) 93 Nasal Cannula 4.0 97.6 ROS: No Chest Pain, No Increase Cough General: Alert, No acute distress Lungs: Clear Cardiovascular: S1 Abdomen: Soft Neuro Exam: Alert Extremities: No Edema Skin: Warm Labs Laboratory Tests Test 07/16/19 12:51 07/16/19 13:00 07/16/19 17:57 07/16/19 20:55 Glucose (Fingerstick) 467 mg/dL (70-99) 441 mg/dL (70-99) 433 mg/dL (70-99) Urine Collection Type U cath Urine Color Carly Urine Clarity Cloudy Urine pH 5.0 (<5.0-8.0) Urine Specific [place] 1.020 (1.000-1.030) Urine Protein 100 mg/dL (NEG-TRACE) Urine Glucose (UA) 500 mg/dL (NEG) Urine Ketones (Stick) Trace mg/dL (NEG) Urine Blood Large (NEG) Urine Nitrite Negative (NEG) Urine Bilirubin Small (NEG) Urine Urobilinogen Dipstick 0.2 mg/dL (0.2 mg/dL) Urine Leukocyte Esterase Small (NEG) Urine RBC 3-5 /HPF (0-2) Urine WBC 1-4 /HPF (0-4) Urine Amorphous Sediment Present /HPF Urine Bacteria Few /HPF (0-FEW) Test 07/16/19 23:35 07/17/19 03:30 07/17/19 08:47 07/17/19 13:22 Glucose (Fingerstick) 346 mg/dL (70-99) 249 mg/dL (70-99) 265 mg/dL (70-99) White Blood Count 12.3 x10^3/uL (4.0-11.0) Red Blood Count 4.62 x10^6/uL (4.30-5.70) Hemoglobin 14.3 g/dL (13.0-17.5) Hematocrit 40.8 % (39.0-53.0) Mean Corpuscular Volume 89 fL (79-100) Mean Corpuscular Hemoglobin 31 pg (25-35) Mean Corpuscular Hemoglobin Concent 35 g/dL (31-37) Red Cell Distribution Width 13.1 % (11.5-14.5) Platelet Count 185 x10^3/uL (140-400) Neutrophils (%) (Auto) 92 % (31-73) Lymphocytes (%) (Auto) 4 % (24-48) Monocytes (%) (Auto) 4 % (0-9) Eosinophils (%) (Auto) 0 % (0-3) Basophils (%) (Auto) 1 % (0-3) Neutrophils # (Auto) 11.3 x10^3/uL (1.8-7.7) Lymphocytes # (Auto) 0.4 x10^3/uL (1.0-4.8) Monocytes # (Auto) 0.5 x10^3/uL (0.0-1.1) Eosinophils # (Auto) 0.0 x10^3/uL (0.0-0.7) Basophils # (Auto) 0.1 x10^3/uL (0.0-0.2) Sodium Level 136 mmol/L (136-145) Potassium Level 4.0 mmol/L (3.5-5.1) Chloride Level 100 mmol/L (98-107) Carbon Dioxide Level 22 mmol/L (21-32) Anion Gap 14 (6-14) Blood Urea Nitrogen 61 mg/dL (8-26) Creatinine 5.4 mg/dL (0.7-1.3) Estimated GFR (Cockcroft-Gault) 13.5 BUN/Creatinine Ratio 11 (6-20) Glucose Level 283 mg/dL (70-99) Calcium Level 7.8 mg/dL (8.5-10.1) Magnesium Level 2.0 mg/dL (1.8-2.4) Total Bilirubin 0.2 mg/dL (0.2-1.0) Aspartate Amino Transf (AST/SGOT) 182 U/L (15-37) Alanine Aminotransferase (ALT/SGPT) 65 U/L (16-63) Alkaline Phosphatase 76 U/L (46-116) Lactate Dehydrogenase 622 U/L (85-227) Creatine Kinase 85365 U/L (39-308) Troponin I Quantitative 0.029 ng/mL (0.000-0.055) C-Reactive Protein, Quantitative 322.0 mg/L (0-3.3) Total Protein 6.6 g/dL (6.4-8.2) Albumin 2.1 g/dL (3.4-5.0) Albumin/Globulin Ratio 0.5 (1.0-1.7) Triglycerides Level 256 mg/dL (0-150) Cholesterol Level 94 mg/dL (0-200) LDL Cholesterol, Calculated 35 mg/dL (0-100) VLDL Cholesterol, Calculated 51 mg/dL (0-40) Non-HDL Cholesterol Calculated 86 mg/dL (0-129) HDL Cholesterol 8 mg/dL (40-60) Cholesterol/HDL Ratio 11.8 Test 07/17/19 16:51 07/17/19 20:42 07/18/19 02:45 07/18/19 07:20 Glucose (Fingerstick) 134 mg/dL (70-99) 90 mg/dL (70-99) 226 mg/dL (70-99) White Blood Count 11.0 x10^3/uL (4.0-11.0) Red Blood Count 4.53 x10^6/uL (4.30-5.70) Hemoglobin 14.0 g/dL (13.0-17.5) Hematocrit 40.5 % (39.0-53.0) Mean Corpuscular Volume 89 fL (79-100) Mean Corpuscular Hemoglobin 31 pg (25-35) Mean Corpuscular Hemoglobin Concent 35 g/dL (31-37) Red Cell Distribution Width 13.4 % (11.5-14.5) Platelet Count 185 x10^3/uL (140-400) Sodium Level 137 mmol/L (136-145) Potassium Level 3.4 mmol/L (3.5-5.1) Chloride Level 101 mmol/L (98-107) Carbon Dioxide Level 21 mmol/L (21-32) Anion Gap 15 (6-14) Blood Urea Nitrogen 59 mg/dL (8-26) Creatinine 4.2 mg/dL (0.7-1.3) Estimated GFR (Cockcroft-Gault) 18.1 Glucose Level 184 mg/dL (70-99) Calcium Level 8.0 mg/dL (8.5-10.1) Phosphorus Level 2.9 mg/dL (2.6-4.7) Magnesium Level 1.9 mg/dL (1.8-2.4) Creatine Kinase 09435 U/L (39-308) Laboratory Tests Test 07/17/19 13:22 07/17/19 16:51 07/17/19 20:42 07/18/19 02:45 Glucose (Fingerstick) 265 mg/dL (70-99) 134 mg/dL (70-99) 90 mg/dL (70-99) White Blood Count 11.0 x10^3/uL (4.0-11.0) Red Blood Count 4.53 x10^6/uL (4.30-5.70) Hemoglobin 14.0 g/dL (13.0-17.5) Hematocrit 40.5 % (39.0-53.0) Mean Corpuscular Volume 89 fL (79-100) Mean Corpuscular Hemoglobin 31 pg (25-35) Mean Corpuscular Hemoglobin Concent 35 g/dL (31-37) Red Cell Distribution Width 13.4 % (11.5-14.5) Platelet Count 185 x10^3/uL (140-400) Sodium Level 137 mmol/L (136-145) Potassium Level 3.4 mmol/L (3.5-5.1) Chloride Level 101 mmol/L (98-107) Carbon Dioxide Level 21 mmol/L (21-32) Anion Gap 15 (6-14) Blood Urea Nitrogen 59 mg/dL (8-26) Creatinine 4.2 mg/dL (0.7-1.3) Estimated GFR (Cockcroft-Gault) 18.1 Glucose Level 184 mg/dL (70-99) Calcium Level 8.0 mg/dL (8.5-10.1) Phosphorus Level 2.9 mg/dL (2.6-4.7) Magnesium Level 1.9 mg/dL (1.8-2.4) Creatine Kinase 55496 U/L (39-308) Test 07/18/19 07:20 Glucose (Fingerstick) 226 mg/dL (70-99) Medications Active Scripts Medications Dose Route/Sig Max Daily Dose Days Date Category Glucophage (Metformin Hcl) 500 Mg Tablet 500 Mg PO BIDWMEALS 08/05/14 Rx Prinivil (Lisinopril) 5 Mg Tablet 10 Mg PO DAILY 08/05/14 Rx Levemir Flextouch (Insulin Detemir) 300 Units/3 Ml Insuln.pen 28 Units SQ QHS 08/05/14 Rx Novolog Flexpen (Insulin Aspart) 300 Units/3 Ml Insuln.pen 18 Units SQ TIDAC 08/05/14 Rx [Aspirin] 81 MG Tablet. 81 Mg PO DAILYWBKFT 08/05/14 Rx Lipitor (Atorvastatin Calcium) 20 Mg Tablet 20 Mg PO QHS 08/05/14 Rx Impression . 1. Acute hypoxic respiratory failure secondary to sepsis. 2. Metabolic encephalopathy secondary to sepsis., resolved 3. Marked consolidation in the left lower lobe along with fever and leukocytosis. Highly consistent with pneumonia, could be aspiration related due to altered mental status. COVID-19 neg 4. Hyponatremia. 5. Acute kidney injury with metabolic acidosis. 6. Hypomagnesemia. 7. Mildly increased troponin level. 8. Abnormal D-dimer. Could be nonspecific. Neg venous Dopplers 9. Marked leukocytosis secondary to pneumonia. improved Plan . 1. Continue with present oxygen. 2. clinically better 3. COVID testneg 4. IV hydration and monitor renal function closely. 5. Follow renal recommendations. 6. Follow ID recommendations. 7. Neg all cultures.so far 8. ct chest with extensive pneumonia.OMAR/[place] 9. Monitor LFTs. 10. DVT prophylaxis. 11. Cardiology rec regarding abnormal troponin. d/w RN/ Dr Mccrary. / ESCOBAR Gregorio MD Jul 18, 2019 11:09
--- NOTE | 2019-07-18 11:13 | PDOC ---
PROGRESS NOTES Chief Complaint Chief Complaint Acute hypoxic respiratory failure - sepsis and pneumonia, LLL Metabolic encephalopathy Hyponatremia. Acute kidney injury with metabolic acidosis - vasomotor nephropathy Hypomagnesemia. Mildly increased troponin level. Abnormal D-dimer. Could be nonspecific. However, we will do venous Dopplers once COVID test is negative. Sepsis - Marked leukocytosis secondary to pneumonia. Transaminitis DM2 - sliding scale HTN - cont meds Obesity - BMI 32 Hx of Sleep apnea - On O2 History of Present Illness History of Present Illness Patient feels a little better today though continues to feel profoundly weak, having difficulty lifting arms and legs. T-max 100.3. On 5 L O2 by nasal cannula. Maintaining good urine output. Has some left lower chest pain, reproducible, worse with cough. COVID pending. Vitals Vitals Vital Signs Date Time Temp Pulse Resp B/P (MAP) Pulse Ox O2 Delivery O2 Flow Rate FiO2 07/18/19 07:00 97.6 90 22 148/88 (108) 93 Nasal Cannula 4.0 97.6 Physical Exam Physical Exam GENERAL: The patient is propped up in bed, appears comfortable though tired appearing HEENT: Pupils equally round. Normal conjunctivae. Oropharynx pink. No lesions seen. NECK: Supple. LUNGS: Diminished aeration. No accessory muscle use. CARDIAC: S1 and S2 regular. ABDOMEN: Obese, soft. No grimace or guarding to palpation. Bowel sounds present. GENITOURINARY: Indwelling Dennison in place. EXTREMITIES: No gross edema or cyanosis. SKIN: Warm to touch. No signs of rash. NEUROLOGIC: Alert oriented x3, grossly nonfocal General: Alert, Oriented X3, Cooperative, No acute distress Heart: Regular rate, Normal S2 Lungs: Clear Abdomen: Normal bowel sounds, Soft, No tenderness Extremities: No cyanosis Skin: No breakdown Labs LABS Laboratory Tests Test 07/17/19 13:22 07/17/19 16:51 07/17/19 20:42 07/18/19 02:45 Glucose (Fingerstick) 265 mg/dL (70-99) 134 mg/dL (70-99) 90 mg/dL (70-99) White Blood Count 11.0 x10^3/uL (4.0-11.0) Red Blood Count 4.53 x10^6/uL (4.30-5.70) Hemoglobin 14.0 g/dL (13.0-17.5) Hematocrit 40.5 % (39.0-53.0) Mean Corpuscular Volume 89 fL (79-100) Mean Corpuscular Hemoglobin 31 pg (25-35) Mean Corpuscular Hemoglobin Concent 35 g/dL (31-37) Red Cell Distribution Width 13.4 % (11.5-14.5) Platelet Count 185 x10^3/uL (140-400) Sodium Level 137 mmol/L (136-145) Potassium Level 3.4 mmol/L (3.5-5.1) Chloride Level 101 mmol/L (98-107) Carbon Dioxide Level 21 mmol/L (21-32) Anion Gap 15 (6-14) Blood Urea Nitrogen 59 mg/dL (8-26) Creatinine 4.2 mg/dL (0.7-1.3) Estimated GFR (Cockcroft-Gault) 18.1 Glucose Level 184 mg/dL (70-99) Calcium Level 8.0 mg/dL (8.5-10.1) Phosphorus Level 2.9 mg/dL (2.6-4.7) Magnesium Level 1.9 mg/dL (1.8-2.4) Creatine Kinase 34016 U/L (39-308) Test 07/18/19 07:20 Glucose (Fingerstick) 226 mg/dL (70-99) Assessment and Plan Assessmemt and Plan Problems Medical Problems: (1) Acute renal failure Status: Acute (2) Hypoxemia Status: Acute (3) Sepsis Status: Acute (4) Severe sepsis Status: Acute (5) Suspected 2019-nCoV infection Status: Acute Comment Review of Relevant I have reviewed the following items rei (where applicable) has been applied. Labs Laboratory Tests Test 07/16/19 12:51 07/16/19 13:00 07/16/19 17:57 07/16/19 20:55 Glucose (Fingerstick) 467 mg/dL (70-99) 441 mg/dL (70-99) 433 mg/dL (70-99) Urine Collection Type U cath Urine Color Carly Urine Clarity Cloudy Urine pH 5.0 (<5.0-8.0) Urine Specific [place] 1.020 (1.000-1.030) Urine Protein 100 mg/dL (NEG-TRACE) Urine Glucose (UA) 500 mg/dL (NEG) Urine Ketones (Stick) Trace mg/dL (NEG) Urine Blood Large (NEG) Urine Nitrite Negative (NEG) Urine Bilirubin Small (NEG) Urine Urobilinogen Dipstick 0.2 mg/dL (0.2 mg/dL) Urine Leukocyte Esterase Small (NEG) Urine RBC 3-5 /HPF (0-2) Urine WBC 1-4 /HPF (0-4) Urine Amorphous Sediment Present /HPF Urine Bacteria Few /HPF (0-FEW) Urine Legionella Antigen Positive (Negative) Test 07/16/19 23:35 07/17/19 03:30 07/17/19 08:47 07/17/19 13:22 Glucose (Fingerstick) 346 mg/dL (70-99) 249 mg/dL (70-99) 265 mg/dL (70-99) White Blood Count 12.3 x10^3/uL (4.0-11.0) Red Blood Count 4.62 x10^6/uL (4.30-5.70) Hemoglobin 14.3 g/dL (13.0-17.5) Hematocrit 40.8 % (39.0-53.0) Mean Corpuscular Volume 89 fL (79-100) Mean Corpuscular Hemoglobin 31 pg (25-35) Mean Corpuscular Hemoglobin Concent 35 g/dL (31-37) Red Cell Distribution Width 13.1 % (11.5-14.5) Platelet Count 185 x10^3/uL (140-400) Neutrophils (%) (Auto) 92 % (31-73) Lymphocytes (%) (Auto) 4 % (24-48) Monocytes (%) (Auto) 4 % (0-9) Eosinophils (%) (Auto) 0 % (0-3) Basophils (%) (Auto) 1 % (0-3) Neutrophils # (Auto) 11.3 x10^3/uL (1.8-7.7) Lymphocytes # (Auto) 0.4 x10^3/uL (1.0-4.8) Monocytes # (Auto) 0.5 x10^3/uL (0.0-1.1) Eosinophils # (Auto) 0.0 x10^3/uL (0.0-0.7) Basophils # (Auto) 0.1 x10^3/uL (0.0-0.2) Sodium Level 136 mmol/L (136-145) Potassium Level 4.0 mmol/L (3.5-5.1) Chloride Level 100 mmol/L (98-107) Carbon Dioxide Level 22 mmol/L (21-32) Anion Gap 14 (6-14) Blood Urea Nitrogen 61 mg/dL (8-26) Creatinine 5.4 mg/dL (0.7-1.3) Estimated GFR (Cockcroft-Gault) 13.5 BUN/Creatinine Ratio 11 (6-20) Glucose Level 283 mg/dL (70-99) Calcium Level 7.8 mg/dL (8.5-10.1) Magnesium Level 2.0 mg/dL (1.8-2.4) Total Bilirubin 0.2 mg/dL (0.2-1.0) Aspartate Amino Transf (AST/SGOT) 182 U/L (15-37) Alanine Aminotransferase (ALT/SGPT) 65 U/L (16-63) Alkaline Phosphatase 76 U/L (46-116) Lactate Dehydrogenase 622 U/L (85-227) Creatine Kinase 55965 U/L (39-308) Troponin I Quantitative 0.029 ng/mL (0.000-0.055) C-Reactive Protein, Quantitative 322.0 mg/L (0-3.3) Total Protein 6.6 g/dL (6.4-8.2) Albumin 2.1 g/dL (3.4-5.0) Albumin/Globulin Ratio 0.5 (1.0-1.7) Triglycerides Level 256 mg/dL (0-150) Cholesterol Level 94 mg/dL (0-200) LDL Cholesterol, Calculated 35 mg/dL (0-100) VLDL Cholesterol, Calculated 51 mg/dL (0-40) Non-HDL Cholesterol Calculated 86 mg/dL (0-129) HDL Cholesterol 8 mg/dL (40-60) Cholesterol/HDL Ratio 11.8 Test 07/17/19 16:51 07/17/19 20:42 07/18/19 02:45 07/18/19 07:20 Glucose (Fingerstick) 134 mg/dL (70-99) 90 mg/dL (70-99) 226 mg/dL (70-99) White Blood Count 11.0 x10^3/uL (4.0-11.0) Red Blood Count 4.53 x10^6/uL (4.30-5.70) Hemoglobin 14.0 g/dL (13.0-17.5) Hematocrit 40.5 % (39.0-53.0) Mean Corpuscular Volume 89 fL (79-100) Mean Corpuscular Hemoglobin 31 pg (25-35) Mean Corpuscular Hemoglobin Concent 35 g/dL (31-37) Red Cell Distribution Width 13.4 % (11.5-14.5) Platelet Count 185 x10^3/uL (140-400) Sodium Level 137 mmol/L (136-145) Potassium Level 3.4 mmol/L (3.5-5.1) Chloride Level 101 mmol/L (98-107) Carbon Dioxide Level 21 mmol/L (21-32) Anion Gap 15 (6-14) Blood Urea Nitrogen 59 mg/dL (8-26) Creatinine 4.2 mg/dL (0.7-1.3) Estimated GFR (Cockcroft-Gault) 18.1 Glucose Level 184 mg/dL (70-99) Calcium Level 8.0 mg/dL (8.5-10.1) Phosphorus Level 2.9 mg/dL (2.6-4.7) Magnesium Level 1.9 mg/dL (1.8-2.4) Creatine Kinase 63171 U/L (39-308) Laboratory Tests Test 07/17/19 13:22 07/17/19 16:51 07/17/19 20:42 07/18/19 02:45 Glucose (Fingerstick) 265 mg/dL (70-99) 134 mg/dL (70-99) 90 mg/dL (70-99) White Blood Count 11.0 x10^3/uL (4.0-11.0) Red Blood Count 4.53 x10^6/uL (4.30-5.70) Hemoglobin 14.0 g/dL (13.0-17.5) Hematocrit 40.5 % (39.0-53.0) Mean Corpuscular Volume 89 fL (79-100) Mean Corpuscular Hemoglobin 31 pg (25-35) Mean Corpuscular Hemoglobin Concent 35 g/dL (31-37) Red Cell Distribution Width 13.4 % (11.5-14.5) Platelet Count 185 x10^3/uL (140-400) Sodium Level 137 mmol/L (136-145) Potassium Level 3.4 mmol/L (3.5-5.1) Chloride Level 101 mmol/L (98-107) Carbon Dioxide Level 21 mmol/L (21-32) Anion Gap 15 (6-14) Blood Urea Nitrogen 59 mg/dL (8-26) Creatinine 4.2 mg/dL (0.7-1.3) Estimated GFR (Cockcroft-Gault) 18.1 Glucose Level 184 mg/dL (70-99) Calcium Level 8.0 mg/dL (8.5-10.1) Phosphorus Level 2.9 mg/dL (2.6-4.7) Magnesium Level 1.9 mg/dL (1.8-2.4) Creatine Kinase 64454 U/L (39-308) Test 07/18/19 07:20 Glucose (Fingerstick) 226 mg/dL (70-99) Microbiology 07/16/19 Urine Culture - Final, Complete 07/16/19 Blood Culture - Preliminary, Resulted NO GROWTH AFTER 1 DAY Medications Current Medications Sodium Chloride 1,000 ml @ 1,000 mls/hr 1X ONCE IV Last administered on 07/16/19at 10:22; Start 07/16/19 at 10:15; Stop 07/16/19 at 11:14; Status DC Ceftriaxone Sodium (Rocephin) 1 gm 1X ONCE IVP Last administered on 07/16/19at 10:25; Start 07/16/19 at 10:15; Stop 07/16/19 at 10:17; Status DC Azithromycin 250 ml @ 250 mls/hr 1X ONCE IV Last administered on 07/16/19at 10:15; Start 07/16/19 at 10:15; Stop 07/16/19 at 11:14; Status DC Acetaminophen (Tylenol) 1,000 mg 1X ONCE PO Last administered on 07/16/19at 10:25; Start 07/16/19 at 10:15; Stop 07/16/19 at 10:17; Status DC Ibuprofen (Motrin) 800 mg 1X ONCE PO Last administered on 07/16/19at 10:25; Start 07/16/19 at 10:15; Stop 07/16/19 at 10:17; Status DC Ibuprofen (Motrin) 800 mg 1X ONCE PO ; Start 07/16/19 at 11:00; Stop 07/16/19 at 11:03; Status DC Ceftriaxone Sodium (Rocephin) 1 gm DAILY07 IVP ; Start 07/17/19 at 07:00; Stop 07/16/19 at 13:59; Status DC Azithromycin 250 ml @ 250 mls/hr DAILY07 IV ; Start 07/17/19 at 07:00; Status Cancel Sodium Chloride (Normal Saline Flush) 3 ml QSHIFT PRN IV AFTER MEDS AND BLOOD DRAWS; Start 07/16/19 at 11:00 Sodium Chloride 1,000 ml @ 100 mls/hr Q10H IV ; Start 07/16/19 at 10:53; Stop 07/16/19 at 12:57; Status DC Ondansetron HCl (Zofran) 4 mg PRN Q4HRS PRN IV NAUSEA/VOMITING; Start 07/16/19 at 11:00; Stop 07/17/19 at 10:29; Status DC Al Hydroxide/Mg Hydroxide (Mylanta Plus Xs) 30 ml PRN DAILY PRN PO HEARTBURN / GAS; Start 07/16/19 at 11:00 Clonidine HCl (Catapres) 0.1 mg PRN Q6HRS PRN PO SBP>160 OR DBP>90; Start 07/16/19 at 11:00 Sodium Monofluorophosphate (Fleet Adult) 133 ml PRN DAILY PRN NE CONSTIPATION; Start 07/16/19 at 11:00 Docusate Sodium (Colace) 100 mg PRN BID PRN PO HARD STOOLS; Start 07/16/19 at 11:00 Albuterol/ Ipratropium (Duoneb) 3 ml Q4HRS NEB ; Start 07/16/19 at 12:00; Stop 07/16/19 at 14:10; Status DC Guaifenesin (Robitussin) 200 mg PRN Q4HRS PRN PO COUGH; Start 07/16/19 at 11:00 Enoxaparin Sodium (Lovenox 40mg Syringe) 40 mg Q24H SQ Last administered on 07/17/19at 13:17; Start 07/16/19 at 11:00 Ondansetron HCl (Zofran) 4 mg PRN Q8HRS PRN IV NAUSEA/VOMITING; Start 07/16/19 at 11:00; Stop 07/17/19 at 10:27; Status DC Sodium Chloride 1,000 ml @ 125 mls/hr Q8H IV ; Start 07/16/19 at 10:58; Stop 07/16/19 at 12:57; Status DC Insulin Human Lispro (HumaLOG) 0-7 UNITS TIDWMEALS SQ Last administered on 07/16/19at 18:00; Start 07/16/19 at 12:00; Stop 07/17/19 at 07:51; Status DC Dextrose (Dextrose 50%-Water Syringe) 12.5 gm PRN Q15MIN PRN IV SEE COMMENTS; Start 07/16/19 at 12:00 Sodium Chloride 1,000 ml @ 125 mls/hr Q8H IV Last administered on 07/18/19at 05:15; Start 07/16/19 at 13:00 Linezolid/Dextrose 300 ml @ 300 mls/hr Q12HR IV Last administered on 07/18/19at 08:59; Start 07/16/19 at 15:00 Piperacillin Sod/ Tazobactam Sod (Zosyn Per Pharmacy) 1 each PRN DAILY PRN MC SEE COMMENTS; Start 07/16/19 at 14:00; Status Cancel Piperacillin Sod/ Tazobactam Sod 2.25 gm/Sodium Chloride 50 ml @ 100 mls/hr Q6HRS IV Last administered on 07/17/19at 05:36; Start 07/16/19 at 14:00; Stop 07/17/19 at 07:52; Status DC Albuterol Sulfate (Ventolin Neb Soln) 2.5 mg PRN Q4HRS PRN NEB SHORTNESS OF BREATH; Start 07/16/19 at 14:15 Insulin Human Lispro (HumaLOG) 6 units 1X ONCE SQ Last administered on 07/16/19at 21:07; Start 07/16/19 at 21:30; Stop 07/16/19 at 21:31; Status DC Azithromycin 500 mg/Sodium Chloride 250 ml @ 250 mls/hr Q24H IV Last administered on 07/18/19at 06:37; Start 07/17/19 at 07:00 Acetaminophen/ Hydrocodone Bitart (Lortab 5/325) 1 tab PRN Q4HRS PRN PO MODERATE PAIN 4-6 Last administered on 07/17/19at 06:16; Start 07/17/19 at 06:15 Insulin Human Lispro (HumaLOG) 0-9 UNITS TIDACHC SQ Last administered on 07/17at 09:05; Start 07/17/19 at 11:30 Dextrose (Dextrose 50%-Water Syringe) 12.5 gm PRN Q15MIN PRN IV SEE COMMENTS; Start 07/17/19 at 08:00 Atorvastatin Calcium (Lipitor) 20 mg QHS PO Last administered on 07/17/19at 21:18; Start 07/17/19 at 21:00 Insulin Human Lispro (HumaLOG) 8 units TIDWMEALS SQ Last administered on 07/18/19at 09:05; Start 07/17/19 at 08:00 Insulin Glargine (Lantus Syringe) 28 unit QHS SQ ; Start 07/17/19 at 21:00 Aspirin (Aspirin Chewable) 81 mg DAILYWBKFT PO Last administered on 07/18/19at 08:56; Start 07/17/19 at 08:00 Piperacillin Sod/ Tazobactam Sod 2.25 gm/Sodium Chloride 50 ml @ 100 mls/hr Q8H IV Last administered on 07/18/19at 05:15; Start 07/17/19 at 14:00 Ondansetron HCl (Zofran) 4 mg PRN Q4HRS PRN IV NAUSEA/VOMITING; Start 07/17/19 at 10:30 Lidocaine (Lidoderm) 1 patch DAILY TD Last administered on 07/17/19at 13:18; Start 07/17/19 at 10:30 Cyclobenzaprine HCl (Flexeril) 10 mg PRN Q6HRS PRN PO MUSCLE SPASMS; Start 07/17/19 at 10:30 Miscellaneous (Lidoderm Patch Removal) 1 ea QHS MC Last administered on 07/17/19at 21:00; Start 07/17/19 at 21:00 Active Scripts Active Glucophage (Metformin Hcl) 500 Mg Tablet 500 Mg PO BIDWMEALS Prinivil (Lisinopril) 5 Mg Tablet 10 Mg PO DAILY Levemir Flextouch (Insulin Detemir) 300 Units/3 Ml Insuln.pen 28 Units SQ QHS Novolog Flexpen (Insulin Aspart) 300 Units/3 Ml Insuln.pen 18 Units SQ TIDAC [Aspirin] 81 MG Tablet.dr 81 Mg PO DAILYWBKFT Lipitor (Atorvastatin Calcium) 20 Mg Tablet 20 Mg PO QHS Vitals/I & O Vital Sign - Last 24 Hours 07/17/19 07/17/19 07/17/19 07/17/19 12:00 16:00 18:51 19:12 Temp 98.3 100.4 99.3 99.3 98.3 100.4 99.3 99.3 Pulse 92 102 103 103 Resp 20 20 24 24 B/P (MAP) 125/33 (63) 128/66 (86) 164/79 (107) 164/79 (107) Pulse Ox 99 97 94 94 O2 Delivery Nasal Cannula Nasal Cannula Nasal Cannula Nasal Cannula O2 Flow Rate 5.0 5.0 4.0 4.0 07/17/19 07/17/19 07/18/19 07/18/19 20:00 23:24 03:18 07:00 Temp 99.3 98.6 97.6 99.3 98.6 97.6 Pulse 106 99 90 Resp 26 22 B/P (MAP) 170/95 (120) 164/85 (111) 148/88 (108) Pulse Ox 94 92 93 O2 Delivery Nasal Cannula Nasal Cannula Nasal Cannula Nasal Cannula O2 Flow Rate 3.0 3.0 4.0 4.0 Intake and Output 07/17/19 07/17/19 07/18/19 15:00 23:00 07:00 Intake Total 1950 ml 1500 ml 1703 ml Output Total 700 ml 500 ml 3300 ml Balance 1250 ml 1000 ml -1597 ml EVI LAWRENCE MD Jul 18, 2019 11:12
--- NOTE | 2019-07-18 11:29 | PDOC ---
Renal-Progress Notes Subjective Notes Notes FEELING BETTER History of Present Illness Hx of present illness STABLE Vitals Vitals Vital Signs Date Time Temp Pulse Resp B/P (MAP) Pulse Ox O2 Delivery O2 Flow Rate FiO2 07/18/19 08:00 Nasal Cannula 3.0 07/18/19 07:00 97.6 90 22 148/88 (108) 93 97.6 Weight Weight [ ] I.O. Intake and Output Intake and Output 07/18/19 07:00 Intake Total 5153 ml Output Total 4500 ml Balance 653 ml Intake Oral 1290 ml IV Total 3863 ml Output Urine Total 4500 ml Labs Labs Laboratory Tests Test 07/17/19 13:22 07/17/19 16:51 07/17/19 20:42 07/18/19 02:45 Glucose (Fingerstick) 265 mg/dL (70-99) 134 mg/dL (70-99) 90 mg/dL (70-99) White Blood Count 11.0 x10^3/uL (4.0-11.0) Red Blood Count 4.53 x10^6/uL (4.30-5.70) Hemoglobin 14.0 g/dL (13.0-17.5) Hematocrit 40.5 % (39.0-53.0) Mean Corpuscular Volume 89 fL (79-100) Mean Corpuscular Hemoglobin 31 pg (25-35) Mean Corpuscular Hemoglobin Concent 35 g/dL (31-37) Red Cell Distribution Width 13.4 % (11.5-14.5) Platelet Count 185 x10^3/uL (140-400) Sodium Level 137 mmol/L (136-145) Potassium Level 3.4 mmol/L (3.5-5.1) Chloride Level 101 mmol/L (98-107) Carbon Dioxide Level 21 mmol/L (21-32) Anion Gap 15 (6-14) Blood Urea Nitrogen 59 mg/dL (8-26) Creatinine 4.2 mg/dL (0.7-1.3) Estimated GFR (Cockcroft-Gault) 18.1 Glucose Level 184 mg/dL (70-99) Calcium Level 8.0 mg/dL (8.5-10.1) Phosphorus Level 2.9 mg/dL (2.6-4.7) Magnesium Level 1.9 mg/dL (1.8-2.4) Creatine Kinase 07483 U/L (39-308) Test 07/18/19 07:20 Glucose (Fingerstick) 226 mg/dL (70-99) Micro Micro Microbiology 07/16/19 Urine Culture - Final, Complete 07/16/19 Blood Culture - Preliminary, Resulted NO GROWTH AFTER 1 DAY Review of Systems Constitutional: yes: weakness, alert, oriented, other (NO MYALGIA) Ears/Nose/Throat: Yes: no symptom reported Eyes: Yes: no symptom reported Pulmonary: Yes no symptom reported Cardiovascular: Yes no symptom reported Gastrointestional: Yes: no symptom reported Genitourinary: Yes: no symptom reported Musculoskeletal: Yes: no symptom reported Skin: Yes no symptom reported Psychiatric/Neurological: Yes: no symptom reported Endocrine: Yes: no symptom reported Physical Exam General Appearance: no apparent distress Skin: warm Respiratory: bilateral CTA Heart: S1S2, no thrills Abdomen: soft, bowel sounds present Genitourinary: bladder flat Neurology: alert, oriented, follow commands Assessment Assessment IMP RENAL FAILURE-ACUTE WITH CR OF DOWN TO 4.2 PROB CKD - UNKNOWN STAGE RHABDOMYOLYSIS-CPK TRENDING DOWN BUT STILL HIGH SEPSIS PROB PNEUMONIA LEUCOCYTOSIS HYPONATREMIA-BETTER LOW MAG-CORRECTED HEPATIC STEATOSIS PLAN HYDRATION SERIAL CPK [facility]OCK ANTIBIOTICS RENAL SONOGRAM NEG WILL FOLLOW UPDATED FAMILY FEDE JENKINS MD Jul 18, 2019 11:29
[2019-07-18 12:00] VITALS: BP 157/95
--- NOTE | 2019-07-18 12:04 | PDOC ---
CARDIO Progress Notes Date and Time Date of Service 07/18/19 Time of Evaluation 1230 Subjective Subjective: No Chest Pain, No Palpitations Vitals Vitals Vital Signs Date Time Temp Pulse Resp B/P (MAP) Pulse Ox O2 Delivery O2 Flow Rate FiO2 07/18/19 08:00 Nasal Cannula 3.0 07/18/19 07:00 97.6 90 22 148/88 (108) 93 97.6 Weight Weight [ ] Input and Output Intake and Output Intake and Output 07/18/19 07:00 Intake Total 5153 ml Output Total 4500 ml Balance 653 ml Intake Oral 1290 ml IV Total 3863 ml Output Urine Total 4500 ml Laboratory Labs Laboratory Tests Test 07/17/19 13:22 07/17/19 16:51 07/17/19 20:42 07/18/19 02:45 Glucose (Fingerstick) 265 mg/dL (70-99) 134 mg/dL (70-99) 90 mg/dL (70-99) White Blood Count 11.0 x10^3/uL (4.0-11.0) Red Blood Count 4.53 x10^6/uL (4.30-5.70) Hemoglobin 14.0 g/dL (13.0-17.5) Hematocrit 40.5 % (39.0-53.0) Mean Corpuscular Volume 89 fL (79-100) Mean Corpuscular Hemoglobin 31 pg (25-35) Mean Corpuscular Hemoglobin Concent 35 g/dL (31-37) Red Cell Distribution Width 13.4 % (11.5-14.5) Platelet Count 185 x10^3/uL (140-400) Sodium Level 137 mmol/L (136-145) Potassium Level 3.4 mmol/L (3.5-5.1) Chloride Level 101 mmol/L (98-107) Carbon Dioxide Level 21 mmol/L (21-32) Anion Gap 15 (6-14) Blood Urea Nitrogen 59 mg/dL (8-26) Creatinine 4.2 mg/dL (0.7-1.3) Estimated GFR (Cockcroft-Gault) 18.1 Glucose Level 184 mg/dL (70-99) Calcium Level 8.0 mg/dL (8.5-10.1) Phosphorus Level 2.9 mg/dL (2.6-4.7) Magnesium Level 1.9 mg/dL (1.8-2.4) Creatine Kinase 34063 U/L (39-308) Test 07/18/19 07:20 07/18/19 11:39 Glucose (Fingerstick) 226 mg/dL (70-99) 256 mg/dL (70-99) Microbiology Micro Microbiology 07/16/19 Urine Culture - Final, Complete 07/16/19 Blood Culture - Preliminary, Resulted NO GROWTH AFTER 1 DAY Review of Systems Constitutional: yes: weakness, alert, oriented, other (NO MYALGIA) Ears/Nose/Throat: Yes: no symptom reported Eyes: Yes: no symptom reported Pulmonary: Yes no symptom reported Cardiovascular: Yes no symptom reported Gastrointestional: Yes: no symptom reported Genitourinary: Yes: no symptom reported Musculoskeletal: Yes: no symptom reported Skin: Yes no symptom reported Psychiatric/Neurological: Yes: no symptom reported Endocrine: Yes: no symptom reported Physical Exam HEENT: Neck Supple W Full Motion Chest: Symmetric LUNGS: Clear to Auscultation Heart: S1S2, RRR Abdomen: Soft N/T Extremities: Other (trace bilateral LE edema ) Neurology: alert, oriented, follow commands Assessment Assessment 1. Acute respiratory failure with probable PNA. COVID negative 2. Leukocytosis, fevers, ? sepsis 3. BERTIN, ? CKD 4. Hypertension 5. Diabetes, II; uncontrolled 6. Elevated troponin; peak 0.116. EKG with nonspecific ST segment changes V2 and V3. Most probable type II, demand ischemia in setting of BERTIN, fevers/infection. 7. Rhabdomyolysis 8. Elevated d-dimer 9. Hypertriglyceridemia 10. Elevated LFTs Recommendations ASA Echo to assess LV systolic function Ongoing antibiotic therapy Avoid nephrotoxins. IVFs Trend CK Hold statin therapy Supportive care Consider outpatient ischemic evaluation Justicifation of Admission Dx: Justifications for Admission: Justification of Admission Dx: Yes Respiratory Failure: Severe Resp Distress Aspiration Pneumonia: Hypoxemia Comminuty Aquired Pneumonia: Hypoxemia Chronic Renal Failure: Electrolyte Abnormality Sepsis: Altered Mental Status Acute COPD Exacerbation: Acute COPD Exacerbation [place]: Acute NSTEMI ASHLEY PEREZ APRN Jul 18, 2019 12:04
[2019-07-18] MEDS: ENOXAPARIN 40 MG/0.4 ML SYRINGE. SQ SCH (12:17)
[2019-07-18 14:49] VITALS: BP 173/91
[2019-07-18 19:25] VITALS: BP 168/94
[2019-07-18] MEDS: LACTOBACILLUS RHAMNOSUS GG 1 CAPSULE. PO SCH (20:37)
[2019-07-18] MEDS: INSULIN GLARGINE SYRINGE. SQ SCH (20:42)
[2019-07-18] MEDS: PATCH REMOVAL. MC SCH (21:00)
[2019-07-18 23:20] VITALS: BP 190/105
[2019-07-19] MEDS: cloNIDine HCL 0.1 MG TABLET PO PRN ×2 (00:35→23:31)
[2019-07-19] MEDS ORDERED: ACETAMINOPHEN 325 MG TABLET. PO PRN (00:45)
[2019-07-19 03:35] VITALS: BP 154/95
[2019-07-19] MEDS: IV NORMAL SALINE 1000ML BAG 1,000 ML IV SCH ×4 (03:54→21:40)
[2019-07-19 04:22] LABS: CALCIUM 8.5 mg/dL (8.5-10.1); CREATININE 2.8 mg/dL (0.7-1.3); GFR 28.8; POTASSIUM 3.5 mmol/L (3.5-5.1)
[2019-07-19] MEDS: PIPERACILLIN/TAZOBACTAM 2.25 GM in IV NORMAL SALINE 50ML 50 ML IV SCH (05:11)
[2019-07-19] MEDS: AZITHROMYCIN 500 MG in IV NORMAL SALINE 250ML 250 ML IV SCH (06:23)
[2019-07-19 07:00] VITALS: BP 161/105
--- NOTE | 2019-07-19 08:30 | PDOC ---
PROGRESS NOTES Chief Complaint Chief Complaint Legionella pneumonia Acute hypoxic respiratory failure - sepsis and pneumonia, LLL Metabolic encephalopathy Hyponatremia. Acute kidney injury with metabolic acidosis - vasomotor nephropathy Hypomagnesemia. Mildly increased troponin level. Abnormal D-dimer. Could be nonspecific. However, we will do venous Dopplers once COVID test is negative. Sepsis - Marked leukocytosis secondary to pneumonia. Transaminitis DM2 - sliding scale HTN - cont meds Obesity - BMI 32 Hx of Sleep apnea - On O2 Legionella antigen positive Rhabdomyolysis CPK now 21 K COVID-19 negative History of Present Illness History of Present Illness Mr Church is a 53yo M w/ PMHx diabetes and hypertension, obese with a BMI of 38.9 admitted with left-sided chest pain and a 3-day history of a cough, fever and chills. 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 COVID 19 negative. CXR with extensive consolidation involving the left upper lobe lingula and probably left lower lobe as well. He had marked leukocytosis. He was also in BERTIN and had metabolic acidosis. His liver enzymes are elevated as well along with mildly elevation of troponin and also elevated troponin. He was confused and in rhabdomyolysis initially. Consulted ID, pulm, nephrology 07/16: Patient feels a little better today though continues to feel profoundly weak, having difficulty lifting arms and legs. T-max 100.3. On 5 L O2 by nasal cannula. Maintaining good urine output. Has some left lower chest pain, reproducible, worse with cough. COVID negative. Xfer out of ICU. Legionella back postive. Still febrile 102.1F. Renal function improved CPKs 17 K, he is in much better spirits and able to lift his arms up over his head today, still with Dennison catheter and still on 3 L nasal cannulated oxygen. Vitals Vitals Vital Signs Date Time Temp Pulse Resp B/P (MAP) Pulse Ox O2 Delivery O2 Flow Rate FiO2 07/19/19 07:00 98.0 82 20 161/105 (123) 92 Nasal Cannula 3.0 98.0 Physical Exam Physical Exam GENERAL: The patient is propped up in bed, appears comfortable though tired appearing HEENT: Pupils equally round. Normal conjunctivae. Oropharynx pink. No lesions seen. NECK: Supple. LUNGS: Diminished aeration. No accessory muscle use. CARDIAC: S1 and S2 regular. ABDOMEN: Obese, soft. No grimace or guarding to palpation. Bowel sounds present. GENITOURINARY: Indwelling Dennison in place. EXTREMITIES: No gross edema or cyanosis. SKIN: Warm to touch. No signs of rash. NEUROLOGIC: Alert oriented x3, grossly nonfocal General: Alert, Oriented X3, Cooperative, No acute distress Heart: Regular rate, Normal S2 Lungs: Clear Abdomen: Normal bowel sounds, Soft, No tenderness Extremities: No cyanosis Skin: No breakdown Labs LABS Laboratory Tests Test 07/18/19 11:39 07/18/19 16:28 07/18/19 20:36 07/19/19 03:15 Glucose (Fingerstick) 256 mg/dL (70-99) 219 mg/dL (70-99) 160 mg/dL (70-99) Sodium Level 139 mmol/L (136-145) Potassium Level 3.5 mmol/L (3.5-5.1) Chloride Level 104 mmol/L (98-107) Carbon Dioxide Level 23 mmol/L (21-32) Anion Gap 12 (6-14) Blood Urea Nitrogen 45 mg/dL (8-26) Creatinine 2.8 mg/dL (0.7-1.3) Estimated GFR (Cockcroft-Gault) 28.8 Glucose Level 190 mg/dL (70-99) Calcium Level 8.5 mg/dL (8.5-10.1) Magnesium Level 2.0 mg/dL (1.8-2.4) Creatine Kinase 34010 U/L (39-308) Test 07/19/19 07:16 Glucose (Fingerstick) 211 mg/dL (70-99) Assessment and Plan Assessmemt and Plan Problems Medical Problems: (1) Acute renal failure Status: Acute (2) Hypoxemia Status: Acute (3) Sepsis Status: Acute (4) Severe sepsis Status: Acute (5) Suspected 2019-nCoV infection Status: Acute Comment Review of Relevant I have reviewed the following items rei (where applicable) has been applied. Labs Laboratory Tests Test 07/17/19 08:47 07/17/19 13:22 07/17/19 16:51 07/17/19 20:42 Glucose (Fingerstick) 249 mg/dL (70-99) 265 mg/dL (70-99) 134 mg/dL (70-99) 90 mg/dL (70-99) Test 07/18/19 02:45 07/18/19 07:20 07/18/19 11:39 07/18/19 16:28 White Blood Count 11.0 x10^3/uL (4.0-11.0) Red Blood Count 4.53 x10^6/uL (4.30-5.70) Hemoglobin 14.0 g/dL (13.0-17.5) Hematocrit 40.5 % (39.0-53.0) Mean Corpuscular Volume 89 fL (79-100) Mean Corpuscular Hemoglobin 31 pg (25-35) Mean Corpuscular Hemoglobin Concent 35 g/dL (31-37) Red Cell Distribution Width 13.4 % (11.5-14.5) Platelet Count 185 x10^3/uL (140-400) Sodium Level 137 mmol/L (136-145) Potassium Level 3.4 mmol/L (3.5-5.1) Chloride Level 101 mmol/L (98-107) Carbon Dioxide Level 21 mmol/L (21-32) Anion Gap 15 (6-14) Blood Urea Nitrogen 59 mg/dL (8-26) Creatinine 4.2 mg/dL (0.7-1.3) Estimated GFR (Cockcroft-Gault) 18.1 Glucose Level 184 mg/dL (70-99) Calcium Level 8.0 mg/dL (8.5-10.1) Phosphorus Level 2.9 mg/dL (2.6-4.7) Magnesium Level 1.9 mg/dL (1.8-2.4) Creatine Kinase 17861 U/L (39-308) Glucose (Fingerstick) 226 mg/dL (70-99) 256 mg/dL (70-99) 219 mg/dL (70-99) Test 07/18/19 20:36 07/19/19 03:15 07/19/19 07:16 Glucose (Fingerstick) 160 mg/dL (70-99) 211 mg/dL (70-99) Sodium Level 139 mmol/L (136-145) Potassium Level 3.5 mmol/L (3.5-5.1) Chloride Level 104 mmol/L (98-107) Carbon Dioxide Level 23 mmol/L (21-32) Anion Gap 12 (6-14) Blood Urea Nitrogen 45 mg/dL (8-26) Creatinine 2.8 mg/dL (0.7-1.3) Estimated GFR (Cockcroft-Gault) 28.8 Glucose Level 190 mg/dL (70-99) Calcium Level 8.5 mg/dL (8.5-10.1) Magnesium Level 2.0 mg/dL (1.8-2.4) Creatine Kinase 63291 U/L (39-308) Laboratory Tests Test 07/18/19 11:39 07/18/19 16:28 07/18/19 20:36 07/19/19 03:15 Glucose (Fingerstick) 256 mg/dL (70-99) 219 mg/dL (70-99) 160 mg/dL (70-99) Sodium Level 139 mmol/L (136-145) Potassium Level 3.5 mmol/L (3.5-5.1) Chloride Level 104 mmol/L (98-107) Carbon Dioxide Level 23 mmol/L (21-32) Anion Gap 12 (6-14) Blood Urea Nitrogen 45 mg/dL (8-26) Creatinine 2.8 mg/dL (0.7-1.3) Estimated GFR (Cockcroft-Gault) 28.8 Glucose Level 190 mg/dL (70-99) Calcium Level 8.5 mg/dL (8.5-10.1) Magnesium Level 2.0 mg/dL (1.8-2.4) Creatine Kinase 31507 U/L (39-308) Test 07/19/19 07:16 Glucose (Fingerstick) 211 mg/dL (70-99) Microbiology 07/16/19 Urine Culture - Final, Complete 07/16/19 Blood Culture - Preliminary, Resulted NO GROWTH AFTER 2 DAYS Medications Current Medications Sodium Chloride 1,000 ml @ 1,000 mls/hr 1X ONCE IV Last administered on 07/16/19at 10:22; Start 07/16/19 at 10:15; Stop 07/16/19 at 11:14; Status DC Ceftriaxone Sodium (Rocephin) 1 gm 1X ONCE IVP Last administered on 07/16/19at 10:25; Start 07/16/19 at 10:15; Stop 07/16/19 at 10:17; Status DC Azithromycin 250 ml @ 250 mls/hr 1X ONCE IV Last administered on 07/16/19at 10:15; Start 07/16/19 at 10:15; Stop 07/16/19 at 11:14; Status DC Acetaminophen (Tylenol) 1,000 mg 1X ONCE PO Last administered on 07/16/19at 10:25; Start 07/16/19 at 10:15; Stop 07/16/19 at 10:17; Status DC Ibuprofen (Motrin) 800 mg 1X ONCE PO Last administered on 07/16/19at 10:25; Start 07/16/19 at 10:15; Stop 07/16/19 at 10:17; Status DC Ibuprofen (Motrin) 800 mg 1X ONCE PO ; Start 07/16/19 at 11:00; Stop 07/16/19 at 11:03; Status DC Ceftriaxone Sodium (Rocephin) 1 gm DAILY07 IVP ; Start 07/17/19 at 07:00; Stop 07/16/19 at 13:59; Status DC Azithromycin 250 ml @ 250 mls/hr DAILY07 IV ; Start 07/17/19 at 07:00; Status Cancel Sodium Chloride (Normal Saline Flush) 3 ml QSHIFT PRN IV AFTER MEDS AND BLOOD DRAWS; Start 07/16/19 at 11:00 Sodium Chloride 1,000 ml @ 100 mls/hr Q10H IV ; Start 07/16/19 at 10:53; Stop 07/16/19 at 12:57; Status DC Ondansetron HCl (Zofran) 4 mg PRN Q4HRS PRN IV NAUSEA/VOMITING; Start 07/16/19 at 11:00; Stop 07/17/19 at 10:29; Status DC Al Hydroxide/Mg Hydroxide (Mylanta Plus Xs) 30 ml PRN DAILY PRN PO HEARTBURN / GAS; Start 07/16/19 at 11:00 Clonidine HCl (Catapres) 0.1 mg PRN Q6HRS PRN PO SBP>160 OR DBP>90 Last administered on 07/19/19at 00:35; Start 07/16/19 at 11:00 Sodium Monofluorophosphate (Fleet Adult) 133 ml PRN DAILY PRN ME CONSTIPATION; Start 07/16/19 at 11:00 Docusate Sodium (Colace) 100 mg PRN BID PRN PO HARD STOOLS; Start 07/16/19 at 11:00 Albuterol/ Ipratropium (Duoneb) 3 ml Q4HRS NEB ; Start 07/16/19 at 12:00; Stop 07/16/19 at 14:10; Status DC Guaifenesin (Robitussin) 200 mg PRN Q4HRS PRN PO COUGH; Start 07/16/19 at 11:00 Enoxaparin Sodium (Lovenox 40mg Syringe) 40 mg Q24H SQ Last administered on 07/18/19at 12:17; Start 07/16/19 at 11:00 Ondansetron HCl (Zofran) 4 mg PRN Q8HRS PRN IV NAUSEA/VOMITING; Start 07/16/19 at 11:00; Stop 07/17/19 at 10:27; Status DC Sodium Chloride 1,000 ml @ 125 mls/hr Q8H IV ; Start 07/16/19 at 10:58; Stop 07/16/19 at 12:57; Status DC Insulin Human Lispro (HumaLOG) 0-7 UNITS TIDWMEALS SQ Last administered on 07/16/19at 18:00; Start 07/16/19 at 12:00; Stop 07/17/19 at 07:51; Status DC Dextrose (Dextrose 50%-Water Syringe) 12.5 gm PRN Q15MIN PRN IV SEE COMMENTS; Start 07/16/19 at 12:00; Status Cancel Sodium Chloride 1,000 ml @ 125 mls/hr Q8H IV Last administered on 07/19/19at 03:54; Start 07/16/19 at 13:00 Linezolid/Dextrose 300 ml @ 300 mls/hr Q12HR IV Last administered on 07/18/19at 20:37; Start 07/16/19 at 15:00 Piperacillin Sod/ Tazobactam Sod (Zosyn Per Pharmacy) 1 each PRN DAILY PRN MC SEE COMMENTS; Start 07/16/19 at 14:00; Status Cancel Piperacillin Sod/ Tazobactam Sod 2.25 gm/Sodium Chloride 50 ml @ 100 mls/hr Q6HRS IV Last administered on 07/17/19at 05:36; Start 07/16/19 at 14:00; Stop 07/17/19 at 07:52; Status DC Albuterol Sulfate (Ventolin Neb Soln) 2.5 mg PRN Q4HRS PRN NEB SHORTNESS OF BREATH Last administered on 07/18/19 23:49; Start 07/16/19 at 14:15 Insulin Human Lispro (HumaLOG) 6 units 1X ONCE SQ Last administered on 07/16/19 21:07; Start 07/16/19 at 21:30; Stop 07/16/19 at 21:31; Status DC Azithromycin 500 mg/Sodium Chloride 250 ml @ 250 mls/hr Q24H IV Last administered on 07/19/19 06:23; Start 07/17/19 at 07:00 Acetaminophen/ Hydrocodone Bitart (Lortab 5/325) 1 tab PRN Q4HRS PRN PO MODERATE PAIN 4-6 Last administered on 07/17/19 06:16; Start 07/17/19 at 06:15 Insulin Human Lispro (HumaLOG) 0-9 UNITS TIDACHC SQ Last administered on 07/18/19 18:26; Start 07/17/19 at 11:30 Dextrose (Dextrose 50%-Water Syringe) 12.5 gm PRN Q15MIN PRN IV SEE COMMENTS; Start 07/17/19 at 08:00 Atorvastatin Calcium (Lipitor) 20 mg QHS PO Last administered on 07/17/19 21:18; Start 07/17/19 at 21:00; Stop 07/18/19 at 12:04; Status DC Insulin Human Lispro (HumaLOG) 8 units TIDWMEALS SQ Last administered on 07/18/19 18:27; Start 07/17/19 at 08:00 Insulin Glargine (Lantus Syringe) 28 unit QHS SQ Last administered on 07/18/19 20:42; Start 07/17/19 at 21:00 Aspirin (Aspirin Chewable) 81 mg DAILYWBKFT PO Last administered on 07/18/19 08:56; Start 07/17/19 at 08:00 Piperacillin Sod/ Tazobactam Sod 2.25 gm/Sodium Chloride 50 ml @ 100 mls/hr Q8H IV Last administered on 07/19/19at 05:11; Start 07/17/19 at 14:00 Ondansetron HCl (Zofran) 4 mg PRN Q4HRS PRN IV NAUSEA/VOMITING; Start 07/17/19 at 10:30 Lidocaine (Lidoderm) 1 patch DAILY TD Last administered on 07/17/19at 13:18; Start 07/17/19 at 10:30 Cyclobenzaprine HCl (Flexeril) 10 mg PRN Q6HRS PRN PO MUSCLE SPASMS; Start 07/17/19 at 10:30 Miscellaneous (Lidoderm Patch Removal) 1 ea QHS MC Last administered on 07/18/19at 21:00; Start 07/17/19 at 21:00 Lactobacillus Rhamnosus (Culturelle) 1 cap BID PO Last administered on 07/18/19at 20:37; Start 07/18/19 at 21:00 Acetaminophen (Tylenol) 650 mg PRN Q6HRS PRN PO FEVER > 100.3'F Last administered on 07/19/19at 00:51; Start 07/19/19 at 00:45 Active Scripts Active Glucophage (Metformin Hcl) 500 Mg Tablet 500 Mg PO BIDWMEALS Prinivil (Lisinopril) 5 Mg Tablet 10 Mg PO DAILY Levemir Flextouch (Insulin Detemir) 300 Units/3 Ml Insuln.pen 28 Units SQ QHS Novolog Flexpen (Insulin Aspart) 300 Units/3 Ml Insuln.pen 18 Units SQ TIDAC [Aspirin] 81 MG Tablet.dr 81 Mg PO DAILYWBKFT Lipitor (Atorvastatin Calcium) 20 Mg Tablet 20 Mg PO QHS Vitals/I & O Vital Sign - Last 24 Hours 07/18/19 07/18/19 07/18/19 07/18/19 12:00 14:49 19:25 20:00 Temp 98.0 98.6 101.1 98.0 98.6 101.1 Pulse 94 99 106 Resp 20 18 20 B/P (MAP) 157/95 (115) 173/91 (118) 168/94 (118) Pulse Ox 95 94 93 O2 Delivery Room Air Room Air Room Air Room Air 07/18/19 07/18/19 07/18/19 07/19/19 23:20 23:49 23:59 00:35 Temp 102.1 102.1 Pulse 101 101 Resp 22 B/P (MAP) 190/105 (133) 190/105 Pulse Ox 84 98 O2 Delivery Room Air Nasal Cannula Nasal Cannula O2 Flow Rate 3.0 3.0 07/19/19 07/19/19 03:35 07:00 Temp 98.9 98.0 98.9 98.0 Pulse 78 82 Resp 22 20 B/P (MAP) 154/95 (114) 161/105 (123) Pulse Ox 98 92 O2 Delivery Nasal Cannula Nasal Cannula O2 Flow Rate 3.0 3.0 Intake and Output 07/18/19 07/18/19 07/19/19 15:00 23:00 07:00 Intake Total 240 ml 780 ml 2050 ml Output Total 1700 ml 2100 ml 2450 ml Balance -1460 ml -1320 ml -400 ml KEERTHI DURAN MD Jul 19, 2019 08:30
[2019-07-19] MEDS: LIDOCAINE (700MG/PATCH) PATCH. TD SCH (09:00)
--- NOTE | 2019-07-19 09:14 | PDOC ---
Infectious Disease Note Subjective: Subjective Pt febrile again last night at 102 O2 down to 3L by nasal cannula Has cough with bloodstained sputum Maintaining good urine output Denies nausea, vomiting, worsening cough or shortness of breath, diarrhea, abdominal pain, rash Otherwise as above Vital Signs: Vital Signs Vital Signs Date Time Temp Pulse Resp B/P (MAP) Pulse Ox O2 Delivery O2 Flow Rate FiO2 07/19/19 07:00 98.0 82 20 161/105 (123) 92 Nasal Cannula 3.0 98.0 Physical Exam: PHYSICAL EXAM GENERAL: The patient is propped up in bed, appears comfortable though tired appearing HEENT: Pupils equally round. Normal conjunctivae. Oropharynx pink. No lesions seen. NECK: Supple. LUNGS: Diminished aeration. No accessory muscle use. CARDIAC: S1 and S2 regular. ABDOMEN: Obese, soft. No grimace or guarding to palpation. Bowel sounds present. GENITOURINARY: Indwelling Dennison in place. EXTREMITIES: No gross edema or cyanosis. SKIN: Warm to touch. No signs of rash. NEUROLOGIC: Alert oriented x3, grossly nonfocal Medications: Inpatient Meds: Current Medications Medications (Trade) Dose Ordered Sig/Joan Start Time Stop Time Status Last Admin Dose Admin Acetaminophen (Tylenol) 650 mg PRN Q6HRS PRN 07/19/19 00:45 07/19/19 00:51 650 MG Acetaminophen/ Hydrocodone Bitart (Lortab 5/325) 1 tab PRN Q4HRS PRN 07/17/19 06:15 07/17/19 06:16 1 TAB Al Hydroxide/Mg Hydroxide (Mylanta Plus Xs) 30 ml PRN DAILY PRN 07/16/19 11:00 Albuterol Sulfate (Ventolin Neb Soln) 2.5 mg PRN Q4HRS PRN 07/16/19 14:15 07/18/19 23:49 2.5 MG Albuterol/ Ipratropium (Duoneb) 3 ml Q4HRS 07/16/19 12:00 07/16/19 14:10 DC Aspirin (Aspirin Chewable) 81 mg DAILYWBKFT 07/17/19 08:00 07/18/19 08:56 81 MG Atorvastatin Calcium (Lipitor) 20 mg QHS 07/17/19 21:00 07/18/19 12:04 DC 07/17/19 21:18 20 MG Azithromycin 250 ml @ 250 mls/hr DAILY07 07/17/19 07:00 Cancel Azithromycin 500 mg/Sodium Chloride 250 ml @ 250 mls/hr Q24H 07/17/19 07:00 07/19/19 09:09 DC 07/19/19 06:23 250 MLS/HR Ceftriaxone Sodium (Rocephin) 1 gm DAILY07 07/17/19 07:00 07/16/19 13:59 DC Clonidine HCl (Catapres) 0.1 mg PRN Q6HRS PRN 07/16/19 11:00 07/19/19 00:35 0.1 MG Cyclobenzaprine HCl (Flexeril) 10 mg PRN Q6HRS PRN 07/17/19 10:30 Dextrose (Dextrose 50%-Water Syringe) 12.5 gm PRN Q15MIN PRN 07/17/19 08:00 Docusate Sodium (Colace) 100 mg PRN BID PRN 07/16/19 11:00 Enoxaparin Sodium (Lovenox 40mg Syringe) 40 mg Q24H 07/16/19 11:00 07/18/19 12:17 40 MG Guaifenesin (Robitussin) 200 mg PRN Q4HRS PRN 07/16/19 11:00 Ibuprofen (Motrin) 800 mg 1X ONCE 07/16/19 11:00 07/16/19 11:03 DC Insulin Glargine (Lantus Syringe) 28 unit QHS 07/17/19 21:00 07/18/19 20:42 28 UNIT Insulin Human Lispro (HumaLOG) 8 units TIDWMEALS 07/17/19 08:00 07/18/19 18:27 8 UNITS Lactobacillus Rhamnosus (Culturelle) 1 cap BID 07/18/19 21:00 07/18/19 20:37 1 CAP Lidocaine (Lidoderm) 1 patch DAILY 07/17/19 10:30 07/17/19 13:18 1 PATCH Linezolid/Dextrose 300 ml @ 300 mls/hr Q12HR 07/16/19 15:00 07/19/19 09:06 DC 07/18/19 20:37 300 MLS/HR Miscellaneous (Lidoderm Patch Removal) 1 ea QHS 07/17/19 21:00 07/18/19 21:00 1 EA Ondansetron HCl (Zofran) 4 mg PRN Q4HRS PRN 07/17/19 10:30 Piperacillin Sod/ Tazobactam Sod (Zosyn Per Pharmacy) 1 each PRN DAILY PRN 07/16/19 14:00 Cancel Piperacillin Sod/ Tazobactam Sod 2.25 gm/Sodium Chloride 50 ml @ 100 mls/hr Q8H 07/17/19 14:00 07/19/19 09:06 DC 07/19/19 05:11 100 MLS/HR Sodium Monofluorophosphate (Fleet Adult) 133 ml PRN DAILY PRN 07/16/19 11:00 Sodium Chloride 1,000 ml @ 125 mls/hr Q8H 07/16/19 13:00 07/19/19 03:54 125 MLS/HR Sodium Chloride (Normal Saline Flush) 3 ml QSHIFT PRN 07/16/19 11:00 Labs: Lab Laboratory Tests Test 07/18/19 11:39 07/18/19 16:28 07/18/19 20:36 07/19/19 03:15 Glucose (Fingerstick) 256 mg/dL (70-99) 219 mg/dL (70-99) 160 mg/dL (70-99) Sodium Level 139 mmol/L (136-145) Potassium Level 3.5 mmol/L (3.5-5.1) Chloride Level 104 mmol/L (98-107) Carbon Dioxide Level 23 mmol/L (21-32) Anion Gap 12 (6-14) Blood Urea Nitrogen 45 mg/dL (8-26) Creatinine 2.8 mg/dL (0.7-1.3) Estimated GFR (Cockcroft-Gault) 28.8 Glucose Level 190 mg/dL (70-99) Calcium Level 8.5 mg/dL (8.5-10.1) Magnesium Level 2.0 mg/dL (1.8-2.4) Creatine Kinase 84497 U/L (39-308) Test 07/19/19 07:16 Glucose (Fingerstick) 211 mg/dL (70-99) Objective: Assessment: 1. Sepsis present on admission. Blood cultures pending so far 2. Severe legionella pneumonia complicated with rhabdomyolysis. 3. Rhabdomyolysis CPK improving 17 K today 4. Fever 5. Acute encephalopathy. improved 6. Acute kidney injury.improving 7. Transaminitis. 8. Diabetes. 9. Hypertension. 10. Obesity. 11. Sleep apnea. 12 hypokalemia 13. COVID-19 negative,strep pneumo negative Plan: Plan of Care DC Zyvox and Zosyn,azithromycin start levofloxacin renal dosing If hemodynamically stable and afebrile can possibly discharge home tomorrow f/u cultures Monitor am labs cont supportive care Discussed with girlfriend and mother at bedside at length Discussed with nursing staff АЛЕКСАНДР FARLEY MD Jul 19, 2019 09:14
[2019-07-19] MEDS: ASPIRIN CHEWABLE 81 MG TABLET. PO SCH (09:22)
[2019-07-19] MEDS: LACTOBACILLUS RHAMNOSUS GG 1 CAPSULE. PO SCH ×2 (09:22→21:40)
[2019-07-19] MEDS: INSULIN LISPRO 300 UNITS/3 ML VIAL. SQ SCH ×7 (09:35→21:00)
[2019-07-19 11:17] VITALS: BP 157/94
--- NOTE | 2019-07-19 11:25 | PDOC ---
PULMONARY PROGRESS NOTES Subjective more alert,no soa wants to go home Vitals Vital Signs Date Time Temp Pulse Resp B/P (MAP) Pulse Ox O2 Delivery O2 Flow Rate FiO2 07/19/19 11:20 93 Nasal Cannula 3.0 07/19/19 11:17 97.3 85 20 157/94 (115) 97.3 ROS: No Chest Pain, No Increase Cough General: Alert, No acute distress Lungs: Clear Cardiovascular: S1 Abdomen: Soft Neuro Exam: Alert Extremities: No Edema Skin: Warm Labs Laboratory Tests Test 07/17/19 13:22 07/17/19 16:51 07/17/19 20:42 07/18/19 02:45 Glucose (Fingerstick) 265 mg/dL (70-99) 134 mg/dL (70-99) 90 mg/dL (70-99) White Blood Count 11.0 x10^3/uL (4.0-11.0) Red Blood Count 4.53 x10^6/uL (4.30-5.70) Hemoglobin 14.0 g/dL (13.0-17.5) Hematocrit 40.5 % (39.0-53.0) Mean Corpuscular Volume 89 fL (79-100) Mean Corpuscular Hemoglobin 31 pg (25-35) Mean Corpuscular Hemoglobin Concent 35 g/dL (31-37) Red Cell Distribution Width 13.4 % (11.5-14.5) Platelet Count 185 x10^3/uL (140-400) Sodium Level 137 mmol/L (136-145) Potassium Level 3.4 mmol/L (3.5-5.1) Chloride Level 101 mmol/L (98-107) Carbon Dioxide Level 21 mmol/L (21-32) Anion Gap 15 (6-14) Blood Urea Nitrogen 59 mg/dL (8-26) Creatinine 4.2 mg/dL (0.7-1.3) Estimated GFR (Cockcroft-Gault) 18.1 Glucose Level 184 mg/dL (70-99) Calcium Level 8.0 mg/dL (8.5-10.1) Phosphorus Level 2.9 mg/dL (2.6-4.7) Magnesium Level 1.9 mg/dL (1.8-2.4) Creatine Kinase 78876 U/L (39-308) Test 07/18/19 07:20 07/18/19 11:39 07/18/19 16:28 07/18/19 20:36 Glucose (Fingerstick) 226 mg/dL (70-99) 256 mg/dL (70-99) 219 mg/dL (70-99) 160 mg/dL (70-99) Test 07/19/19 03:15 07/19/19 07:16 Sodium Level 139 mmol/L (136-145) Potassium Level 3.5 mmol/L (3.5-5.1) Chloride Level 104 mmol/L (98-107) Carbon Dioxide Level 23 mmol/L (21-32) Anion Gap 12 (6-14) Blood Urea Nitrogen 45 mg/dL (8-26) Creatinine 2.8 mg/dL (0.7-1.3) Estimated GFR (Cockcroft-Gault) 28.8 Glucose Level 190 mg/dL (70-99) Calcium Level 8.5 mg/dL (8.5-10.1) Magnesium Level 2.0 mg/dL (1.8-2.4) Creatine Kinase 65009 U/L (39-308) Glucose (Fingerstick) 211 mg/dL (70-99) Laboratory Tests Test 07/18/19 11:39 07/18/19 16:28 07/18/19 20:36 07/19/19 03:15 Glucose (Fingerstick) 256 mg/dL (70-99) 219 mg/dL (70-99) 160 mg/dL (70-99) Sodium Level 139 mmol/L (136-145) Potassium Level 3.5 mmol/L (3.5-5.1) Chloride Level 104 mmol/L (98-107) Carbon Dioxide Level 23 mmol/L (21-32) Anion Gap 12 (6-14) Blood Urea Nitrogen 45 mg/dL (8-26) Creatinine 2.8 mg/dL (0.7-1.3) Estimated GFR (Cockcroft-Gault) 28.8 Glucose Level 190 mg/dL (70-99) Calcium Level 8.5 mg/dL (8.5-10.1) Magnesium Level 2.0 mg/dL (1.8-2.4) Creatine Kinase 18630 U/L (39-308) Test 07/19/19 07:16 Glucose (Fingerstick) 211 mg/dL (70-99) Medications Active Scripts Medications Dose Route/Sig Max Daily Dose Days Date Category Glucophage (Metformin Hcl) 500 Mg Tablet 500 Mg PO BIDWMEALS 08/05/14 Rx Prinivil (Lisinopril) 5 Mg Tablet 10 Mg PO DAILY 08/05/14 Rx Levemir Flextouch (Insulin Detemir) 300 Units/3 Ml Insuln.pen 28 Units SQ QHS 08/05/14 Rx Novolog Flexpen (Insulin Aspart) 300 Units/3 Ml Insuln.pen 18 Units SQ TIDAC 08/05/14 Rx [Aspirin] 81 MG Tablet. 81 Mg PO DAILYWBKFT 08/05/14 Rx Lipitor (Atorvastatin Calcium) 20 Mg Tablet 20 Mg PO QHS 08/05/14 Rx Impression . 1. Acute hypoxic respiratory failure secondary to sepsis. resolved 2. Metabolic encephalopathy secondary to sepsis., resolved 3. Marked consolidation in the left lower lobe along with fever and leukocytosis. Highly consistent with pneumonia, legionella positive to altered mental status. COVID-19 neg , improving 4. Hyponatremia. 5. Acute kidney injury with metabolic acidosis. 6. Hypomagnesemia. 7. Mildly increased troponin level. 8. Abnormal D-dimer. Could be nonspecific. Neg venous Dopplers 9. Marked leukocytosis secondary to pneumonia. improved Plan . 1. Continue with present oxygen. 2. clinically better 3. COVID testneg 4. IV hydration and monitor renal function , improving 5. Follow renal recommendations. 6. Follow ID recommendations for legionella 7. Neg all cultures.so far 8. ct chest with extensive pneumonia.OMAR/Lingula, repeat cxr today 9. Monitor LFTs. 10. DVT prophylaxis. 11. Cardiology rec regarding abnormal troponin. d/w RN/ Dr Mccrary. / Dr Sugar [facility]nam[facility] home in [place] Michel MD Jul 19, 2019 11:25
--- NOTE | 2019-07-19 11:48 | PDOC ---
Renal-Progress Notes Subjective Notes Notes FEELING BETTER History of Present Illness Hx of present illness STABLE Vitals Vitals Vital Signs Date Time Temp Pulse Resp B/P (MAP) Pulse Ox O2 Delivery O2 Flow Rate FiO2 07/19/19 11:20 93 Nasal Cannula 3.0 07/19/19 11:17 97.3 85 20 157/94 (115) 97.3 Weight Weight [ ] I.O. Intake and Output Intake and Output 07/19/19 07:00 Intake Total 3070 ml Output Total 6250 ml Balance -3180 ml Intake Oral 1720 ml IV Total 1350 ml Output Urine Total 6250 ml Labs Labs Laboratory Tests Test 07/18/19 16:28 07/18/19 20:36 07/19/19 03:15 07/19/19 07:16 Glucose (Fingerstick) 219 mg/dL (70-99) 160 mg/dL (70-99) 211 mg/dL (70-99) Sodium Level 139 mmol/L (136-145) Potassium Level 3.5 mmol/L (3.5-5.1) Chloride Level 104 mmol/L (98-107) Carbon Dioxide Level 23 mmol/L (21-32) Anion Gap 12 (6-14) Blood Urea Nitrogen 45 mg/dL (8-26) Creatinine 2.8 mg/dL (0.7-1.3) Estimated GFR (Cockcroft-Gault) 28.8 Glucose Level 190 mg/dL (70-99) Calcium Level 8.5 mg/dL (8.5-10.1) Magnesium Level 2.0 mg/dL (1.8-2.4) Creatine Kinase 42999 U/L (39-308) Test 07/19/19 11:31 Glucose (Fingerstick) 256 mg/dL (70-99) Micro Micro Microbiology 07/16/19 Urine Culture - Final, Complete 07/16/19 Blood Culture - Preliminary, Resulted NO GROWTH AFTER 2 DAYS Review of Systems Constitutional: yes: weakness, alert, oriented, other (NO MYALGIA) Ears/Nose/Throat: Yes: no symptom reported Eyes: Yes: no symptom reported Pulmonary: Yes no symptom reported Cardiovascular: Yes no symptom reported Gastrointestional: Yes: no symptom reported Genitourinary: Yes: no symptom reported Musculoskeletal: Yes: no symptom reported Skin: Yes no symptom reported Psychiatric/Neurological: Yes: no symptom reported Endocrine: Yes: no symptom reported Physical Exam General Appearance: no apparent distress Skin: warm Respiratory: bilateral CTA Heart: S1S2, no thrills Abdomen: soft, bowel sounds present Genitourinary: bladder flat Neurology: alert, oriented, follow commands Assessment Assessment IMP RENAL FAILURE-ACUTE WITH CR OF DOWN TO 2.8 PROB CKD - UNKNOWN STAGE RHABDOMYOLYSIS-CPK TRENDING DOWN BUT STILL HIGH SEPSIS PROB PNEUMONIA LEUCOCYTOSIS HYPONATREMIA-BETTER LOW MAG-CORRECTED HEPATIC STEATOSIS PLAN HYDRATION SERIAL CPK [facility] ANTIBIOTICS RENAL SONOGRAM NEG WILL FOLLOW UPDATED FAMILY FEDE JENKINS MD Jul 19, 2019 11:48
--- NOTE | 2019-07-19 11:58 | NUR ---
SS following up with discharge planning. SS reviewed pt chart and discussed with pt RN. PT/OT recommended home with assistance. Pt now on PO medications. Pt currently requiring oxygen. SS met with pt and discussed home healthcare. Pt declined home healthcare and and as observed pointed to his girlfriend and stated "that's what she is for." Pt's RN notified. SS will continue to follow for discharge planning.
--- NOTE | 2019-07-19 12:09 | PDOC ---
[facility] [employer] 07/19/19 1209: CARDIO Progress Notes Date and Time Date of Service 07/19/2019 Time of Evaluation 0940 Subjective Subjective: No Chest Pain, No shortness of breath, No Palpitations Vitals Vitals Vital Signs Date Time Temp Pulse Resp B/P (MAP) Pulse Ox O2 Delivery O2 Flow Rate FiO2 07/19/19 11:20 93 Nasal Cannula 3.0 07/19/19 11:17 97.3 85 20 157/94 (115) 97.3 Weight Weight [ ] Input and Output Intake and Output Intake and Output 07/19/19 07:00 Intake Total 3070 ml Output Total 6250 ml Balance -3180 ml Intake Oral 1720 ml IV Total 1350 ml Output Urine Total 6250 ml Laboratory Labs Laboratory Tests Test 07/18/19 16:28 07/18/19 20:36 07/19/19 03:15 07/19/19 07:16 Glucose (Fingerstick) 219 mg/dL (70-99) 160 mg/dL (70-99) 211 mg/dL (70-99) Sodium Level 139 mmol/L (136-145) Potassium Level 3.5 mmol/L (3.5-5.1) Chloride Level 104 mmol/L (98-107) Carbon Dioxide Level 23 mmol/L (21-32) Anion Gap 12 (6-14) Blood Urea Nitrogen 45 mg/dL (8-26) Creatinine 2.8 mg/dL (0.7-1.3) Estimated GFR (Cockcroft-Gault) 28.8 Glucose Level 190 mg/dL (70-99) Calcium Level 8.5 mg/dL (8.5-10.1) Magnesium Level 2.0 mg/dL (1.8-2.4) Creatine Kinase 42455 U/L (39-308) Test 07/19/19 11:31 Glucose (Fingerstick) 256 mg/dL (70-99) Microbiology Micro Microbiology 07/16/19 Urine Culture - Final, Complete 07/16/19 Blood Culture - Preliminary, Resulted NO GROWTH AFTER 2 DAYS Review of Systems Constitutional: yes: weakness, alert, oriented, other (NO MYALGIA) Ears/Nose/Throat: Yes: no symptom reported Eyes: Yes: no symptom reported Pulmonary: Yes no symptom reported Cardiovascular: Yes no symptom reported Gastrointestional: Yes: no symptom reported Genitourinary: Yes: no symptom reported Musculoskeletal: Yes: no symptom reported Skin: Yes no symptom reported Psychiatric/Neurological: Yes: no symptom reported Endocrine: Yes: no symptom reported Physical Exam HEENT: Neck Supple W Full Motion Chest: Symmetric LUNGS: Clear to Auscultation Heart: S1S2, RRR (SR) Abdomen: Soft N/T Extremities: Other (trace bilateral LE edema ) Neurology: alert, oriented, follow commands Assessment Assessment 1. Acute respiratory failure with legionella PNA adn sepsis 2. BERTIN likely on CKD3 with associated severe rhabdo. Cr at 2.8. per nephrology 3[place] [address] 4. Hypertension: labile episodes 5. DM2: BG remains labile, per PCP 6. Elevated troponin; peaked 0.116. Suspect demand mediated, no CP 7. DLP: elevated TG and low HDL 8. Suspect chronic diastolic CHF: compensated Recommendations 1. TTE today 2. Secondary prevention measures. Start on amlodipine. Hold statin for now. Avoid nephrotoxic agents. 3. Consider outpt ischemic eval. 4. Hydration adequacy Justicifation of Admission Dx: Justifications for Admission: Justification of Admission Dx: Yes Respiratory Failure: Severe Resp Distress Aspiration Pneumonia: Hypoxemia Comminuty Aquired Pneumonia: Hypoxemia Chronic Renal Failure: Electrolyte Abnormality Sepsis: Altered Mental Status Acute COPD Exacerbation: Acute COPD Exacerbation MN: Acute NSTEMI ALLISON FIGUEROA MD 07/19/19 1645: CARDIO Progress Notes Assessment Assessment Patient seen and evaluated Agree with our nurse practitioners assessment and plan. Acute respiratory failure with legionella PNA and sepsis BERTIN likely on CKD3 with associated severe rhabdo. Followed by the renal service. Cr at 2.8. per neph[place] [address]. Hydration and monitoring. Hypertension: labile episodes but improved DM2: BG remains labile, per PCP Elevated troponin; peaked 0.116. Suspect demand mediated, no CP. Echo pending. Outpatient ischemia evaluation. HLP: elevated TG and low HDL [facility] APRN Jul 19, 2019 12:09 ALLISON FIGUEROA MD Jul 19, 2019 16:45
--- NOTE | 2019-07-19 12:37 | CARD ---
MR#: [id number] Date of Study: 07/19/2019 Ordering Physician: ASHLEY EPREZ, Referring Physician: ASHLEY PEREZ, Tech: Zhane Hunter [facility] APPROVED REPORT EXAM: Two-dimensional and M-mode echocardiogram with Doppler and color Doppler. Other Information Quality : AverageHR: 75bpm Rhythm : NSR INDICATION Hypertension/HCVD RISK FACTORS Hypertension Obesity 2D DIMENSIONS RVDd3.3 (2.9-3.5cm)Left Atrium(2D)4.5 (1.6-4.0cm) IVSd1.4 (0.7-1.1cm)Aortic Root(2D)3.4 (2.0-3.7cm) LVDd4.5 (3.9-5.9cm)LVOT Diameter2.4 (1.8-2.4cm) PWd1.5 (0.7-1.1cm)LVDs2.8 (2.5-4.0cm) FS (%) 36.0 %SV59.2 ml Aortic Valve AoV Peak Ricardo.140.1cm/sAoV VTI25.5cm AO Peak GR.7.9mmHgAO Mean GR.4mmHg Mitral Valve MV E Kjeaglox85.6cm/sMV DECEL [id number] MV A Hsunropz61.2cm/sE/A Ratio1.3 MV A [id number] Pulmonary Valve PV Peak Hqdkaxpb11.1cm/s Tricuspid Valve TR P. [id number]/sTR Peak Gr.27mmHg Pulmonary Vein S1 Rikbgxcp26.9cm/sD2 Pzbsbarv16.6cm/s PVa [id number] LEFT VENTRICLE The left ventricle is normal size. There is mild concentric left ventricular hypertrophy. The left ve ntricular systolic function is normal and the ejection fraction is within normal range. Estimated eje ction fraction 50-55%. There is normal LV segmental wall motion. Tissue Doppler imaging reveals mild left ventricular diastolic dysfunction. RIGHT VENTRICLE The right ventricle is normal size. There is normal right ventricular wall thickness. The right ventr icular systolic function is normal. ATRIA The left atrium size is normal. The right atrium size is normal. The interatrial septum is intact wit h no evidence for an atrial septal defect or patent foramen ovale as noted on 2-D or Doppler imaging. AORTIC VALVE The aortic valve is thickened but opens well. Doppler and Color Flow revealed trace aortic regurgitat ion. There is no significant aortic valvular stenosis. MITRAL VALVE The mitral valve is normal in structure and function. Doppler and Color Flow revealed trace mitral va lve regurgitation. TRICUSPID VALVE The tricuspid valve is normal in structure and function. Doppler and Color Flow revealed mild tricusp id regurgitation. Estimated PAP 30 mmHg. PULMONIC VALVE The pulmonary valve is normal in structure and function. Doppler and Color Flow revealed no pulmonic valvular regurgitation. GREAT VESSELS The aortic root is normal in size. The ascending aorta is normal in size. The IVC is normal in size a nd collapses >50% with inspiration. PERICARDIAL EFFUSION There is no evidence of significant pericardial effusion. Critical Notification Critical Value: No <Conclusion> The left ventricle is normal size. The left ventricular systolic function is normal and the ejection fraction is within normal range. Estimated ejection fraction 50-55%. There is mild concentric left ventricular hypertrophy. Doppler and Color Flow revealed trace aortic regurgitation. There is no significant aortic valvular stenosis. Doppler and Color Flow revealed trace mitral valve regurgitation. Doppler and Color Flow revealed mild tricuspid regurgitation. Estimated PAP 30 mmHg. Signed by : Dav Ayala MD Electronically Approved : 07/19/2019 12:37:07
[2019-07-19] MEDS: ENOXAPARIN 40 MG/0.4 ML SYRINGE. SQ SCH (12:56)
--- NOTE | 2019-07-19 14:32 | RAD ---
Examination: PORTABLE CHEST 1V History: Reason: pneumonia / Spl. Instructions: / History: Comparison/Correlation: 07/16/2019 portable chest x-ray exam Findings: Portable upright frontal view of the chest was obtained. Right lung field is clear. Left midthoracic consolidation is again seen. No significant differences suspected considering differences in patient positioning. No new infiltrates. No pneumothorax. Bony structures are unremarkable. Impression: Dense left lung consolidation again seen. No new process in the interval. Continued follow-up to resolution recommended. Electronically signed by: Van Wong MD (07/19/2019 2:30 PM) [id number]
[2019-07-19 15:42] VITALS: BP 150/100
[2019-07-19] MEDS: amLODIPine BESYLATE 10 MG TABLET PO SCH (17:52)
[2019-07-19 19:00] VITALS: BP 148/91
[2019-07-19] MEDS: INSULIN GLARGINE SYRINGE. SQ SCH (21:00)
[2019-07-19] MEDS: PATCH REMOVAL. MC SCH (21:00)
[2019-07-19 23:05] VITALS: BP 173/93
[2019-07-20] VITALS (7 sets, daily range): BP systolic 137–168; BP diastolic 74–109
[2019-07-20 05:54] LABS: CALCIUM 8.5 mg/dL (8.5-10.1); GFR 42.5; POTASSIUM 3.4 mmol/L (3.5-5.1)
--- NOTE | 2019-07-20 08:07 | PDOC ---
PROGRESS NOTES Chief Complaint Chief Complaint Legionella pneumonia Acute hypoxic respiratory failure - sepsis and pneumonia, LLL Metabolic encephalopathy Hyponatremia. Acute kidney injury with metabolic acidosis - vasomotor nephropathy Hypomagnesemia. Mildly increased troponin level. Abnormal D-dimer. Could be nonspecific. However, we will do venous Dopplers once COVID test is negative. Sepsis - Marked leukocytosis secondary to pneumonia. Transaminitis DM2 - sliding scale HTN - cont meds Obesity - BMI 32 Hx of Sleep apnea - On O2 Legionella antigen positive Rhabdomyolysis CPK now 21 K COVID-19 negative History of Present Illness History of Present Illness Mr Church is a 53yo M w/ PMHx diabetes and hypertension, obese with a BMI of 38.9 admitted with left-sided chest pain and a 3-day history of a cough, fever and chills. 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 COVID 19 negative. CXR with extensive consolidation involving the left upper lobe lingula and probably left lower lobe as well. He had marked leukocytosis. He was also in BERTIN and had metabolic acidosis. His liver enzymes are elevated as well along with mildly elevation of troponin and also elevated troponin. He was confused and in rhabdomyolysis initially. Consulted ID, pulm, nephrology 07/16: Patient feels a little better today though continues to feel profoundly weak, having difficulty lifting arms and legs. T-max 100.3. On 5 L O2 by nasal cannula. Maintaining good urine output. Has some left lower chest pain, reproducible, worse with cough. COVID negative. Xfer out of ICU. 07/18: Legionella back postive. Still febrile 102.1F. Renal function improved CPKs 17 K, he is in much better spirits and able to lift his arms up over his head today, still with Dennison catheter and still on 3 L nasal cannulated oxygen. CXR with left consolidation. Cr down to 2, CPK 27K. Afebrile since 07/17. He is anxious to go today, reassured by nephrology infectious diseases and myself that he should remain in-house at least for another 24 to 72 hours. Vitals Vitals Vital Signs Date Time Temp Pulse Resp B/P (MAP) Pulse Ox O2 Delivery O2 Flow Rate FiO2 07/20/19 07:48 97.9 81 19 162/98 (119) 96 Nasal Cannula 3.0 97.9 Physical Exam Physical Exam GENERAL: The patient is propped up in bed, appears comfortable though tired appearing HEENT: Pupils equally round. Normal conjunctivae. Oropharynx pink. No lesions seen. NECK: Supple. LUNGS: Diminished aeration. No accessory muscle use. CARDIAC: S1 and S2 regular. ABDOMEN: Obese, soft. No grimace or guarding to palpation. Bowel sounds present. GENITOURINARY: Indwelling Dennison in place. EXTREMITIES: No gross edema or cyanosis. SKIN: Warm to touch. No signs of rash. NEUROLOGIC: Alert oriented x3, grossly nonfocal General: Alert, Oriented X3, Cooperative, No acute distress Heart: Regular rate, Normal S2 Lungs: Clear Abdomen: Normal bowel sounds, Soft, No tenderness Extremities: No cyanosis Skin: No breakdown Labs LABS Laboratory Tests Test 07/19/19 11:31 07/19/19 16:26 07/19/19 20:40 07/19/19 22:10 Glucose (Fingerstick) 256 mg/dL (70-99) 175 mg/dL (70-99) 68 mg/dL (70-99) 101 mg/dL (70-99) Test 07/20/19 04:10 07/20/19 07:51 Sodium Level 142 mmol/L (136-145) Potassium Level 3.4 mmol/L (3.5-5.1) Chloride Level 106 mmol/L (98-107) Carbon Dioxide Level 25 mmol/L (21-32) Anion Gap 11 (6-14) Blood Urea Nitrogen 36 mg/dL (8-26) Creatinine 2.0 mg/dL (0.7-1.3) Estimated GFR (Cockcroft-Gault) 42.5 Glucose Level 167 mg/dL (70-99) Calcium Level 8.5 mg/dL (8.5-10.1) Creatine Kinase 08658 U/L (39-308) Glucose (Fingerstick) 197 mg/dL (70-99) Assessment and Plan Assessmemt and Plan Problems Medical Problems: (1) Acute renal failure Status: Acute (2) Hypoxemia Status: Acute (3) Sepsis Status: Acute (4) Severe sepsis Status: Acute (5) Suspected 2019-nCoV infection Status: Acute Comment Review of Relevant I have reviewed the following items rei (where applicable) has been applied. Labs Laboratory Tests Test 07/18/19 11:39 07/18/19 16:28 07/18/19 20:36 07/19/19 03:15 Glucose (Fingerstick) 256 mg/dL (70-99) 219 mg/dL (70-99) 160 mg/dL (70-99) Sodium Level 139 mmol/L (136-145) Potassium Level 3.5 mmol/L (3.5-5.1) Chloride Level 104 mmol/L (98-107) Carbon Dioxide Level 23 mmol/L (21-32) Anion Gap 12 (6-14) Blood Urea Nitrogen 45 mg/dL (8-26) Creatinine 2.8 mg/dL (0.7-1.3) Estimated GFR (Cockcroft-Gault) 28.8 Glucose Level 190 mg/dL (70-99) Calcium Level 8.5 mg/dL (8.5-10.1) Magnesium Level 2.0 mg/dL (1.8-2.4) Creatine Kinase 80465 U/L (39-308) Test 07/19/19 07:16 07/19/19 11:31 07/19/19 16:26 07/19/19 20:40 Glucose (Fingerstick) 211 mg/dL (70-99) 256 mg/dL (70-99) 175 mg/dL (70-99) 68 mg/dL (70-99) Test 07/19/19 22:10 07/20/19 04:10 07/20/19 07:51 Glucose (Fingerstick) 101 mg/dL (70-99) 197 mg/dL (70-99) Sodium Level 142 mmol/L (136-145) Potassium Level 3.4 mmol/L (3.5-5.1) Chloride Level 106 mmol/L (98-107) Carbon Dioxide Level 25 mmol/L (21-32) Anion Gap 11 (6-14) Blood Urea Nitrogen 36 mg/dL (8-26) Creatinine 2.0 mg/dL (0.7-1.3) Estimated GFR (Cockcroft-Gault) 42.5 Glucose Level 167 mg/dL (70-99) Calcium Level 8.5 mg/dL (8.5-10.1) Creatine Kinase 26863 U/L (39-308) Laboratory Tests Test 07/19/19 11:31 07/19/19 16:26 07/19/19 20:40 07/19/19 22:10 Glucose (Fingerstick) 256 mg/dL (70-99) 175 mg/dL (70-99) 68 mg/dL (70-99) 101 mg/dL (70-99) Test 07/20/19 04:10 07/20/19 07:51 Sodium Level 142 mmol/L (136-145) Potassium Level 3.4 mmol/L (3.5-5.1) Chloride Level 106 mmol/L (98-107) Carbon Dioxide Level 25 mmol/L (21-32) Anion Gap 11 (6-14) Blood Urea Nitrogen 36 mg/dL (8-26) Creatinine 2.0 mg/dL (0.7-1.3) Estimated GFR (Cockcroft-Gault) 42.5 Glucose Level 167 mg/dL (70-99) Calcium Level 8.5 mg/dL (8.5-10.1) Creatine Kinase 73731 U/L (39-308) Glucose (Fingerstick) 197 mg/dL (70-99) Microbiology 07/16/19 Urine Culture - Final, Complete 07/16/19 Blood Culture - Preliminary, Resulted NO GROWTH AFTER 3 DAYS Medications Current Medications Sodium Chloride 1,000 ml @ 1,000 mls/hr 1X ONCE IV Last administered on 07/16/19at 10:22; Start 07/16/19 at 10:15; Stop 07/16/19 at 11:14; Status DC Ceftriaxone Sodium (Rocephin) 1 gm 1X ONCE IVP Last administered on 07/16/19at 10:25; Start 07/16/19 at 10:15; Stop 07/16/19 at 10:17; Status DC Azithromycin 250 ml @ 250 mls/hr 1X ONCE IV Last administered on 07/16/19at 10:15; Start 07/16/19 at 10:15; Stop 07/16/19 at 11:14; Status DC Acetaminophen (Tylenol) 1,000 mg 1X ONCE PO Last administered on 07/16/19at 10:25; Start 07/16/19 at 10:15; Stop 07/16/19 at 10:17; Status DC Ibuprofen (Motrin) 800 mg 1X ONCE PO Last administered on 07/16/19at 10:25; Start 07/16/19 at 10:15; Stop 07/16/19 at 10:17; Status DC Ibuprofen (Motrin) 800 mg 1X ONCE PO ; Start 07/16/19 at 11:00; Stop 07/16/19 at 11:03; Status DC Ceftriaxone Sodium (Rocephin) 1 gm DAILY07 IVP ; Start 07/17/19 at 07:00; Stop 07/16/19 at 13:59; Status DC Azithromycin 250 ml @ 250 mls/hr DAILY07 IV ; Start 07/17/19 at 07:00; Status Cancel Sodium Chloride (Normal Saline Flush) 3 ml QSHIFT PRN IV AFTER MEDS AND BLOOD DRAWS; Start 07/16/19 at 11:00 Sodium Chloride 1,000 ml @ 100 mls/hr Q10H IV ; Start 07/16/19 at 10:53; Stop 07/16/19 at 12:57; Status DC Ondansetron HCl (Zofran) 4 mg PRN Q4HRS PRN IV NAUSEA/VOMITING; Start 07/16/19 at 11:00; Stop 07/17/19 at 10:29; Status DC Al Hydroxide/Mg Hydroxide (Mylanta Plus Xs) 30 ml PRN DAILY PRN PO HEARTBURN / GAS; Start 07/16/19 at 11:00 Clonidine HCl (Catapres) 0.1 mg PRN Q6HRS PRN PO SBP>160 OR DBP>90 Last administered on 07/19/19at 23:31; Start 07/16/19 at 11:00 Sodium Monofluorophosphate (Fleet Adult) 133 ml PRN DAILY PRN TX CONSTIPATION; Start 07/16/19 at 11:00 Docusate Sodium (Colace) 100 mg PRN BID PRN PO HARD STOOLS; Start 07/16/19 at 11 :00 Albuterol/ Ipratropium (Duoneb) 3 ml Q4HRS NEB ; Start 07/16/19 at 12:00; Stop 07/16/19 at 14:10; Status DC Guaifenesin (Robitussin) 200 mg PRN Q4HRS PRN PO COUGH; Start 07/16/19 at 11:00 Enoxaparin Sodium (Lovenox 40mg Syringe) 40 mg Q24H SQ Last administered on 07/19/19at 12:56; Start 07/16/19 at 11:00 Ondansetron HCl (Zofran) 4 mg PRN Q8HRS PRN IV NAUSEA/VOMITING; Start 07/16/19 at 11:00; Stop 07/17/19 at 10:27; Status DC Sodium Chloride 1,000 ml @ 125 mls/hr Q8H IV ; Start 07/16/19 at 10:58; Stop 07/16/19 at 12:57; Status DC Insulin Human Lispro (HumaLOG) 0-7 UNITS TIDWMEALS SQ Last administered on 07/16/19at 18:00; Start 07/16/19 at 12:00; Stop 07/17/19 at 07:51; Status DC Dextrose (Dextrose 50%-Water Syringe) 12.5 gm PRN Q15MIN PRN IV SEE COMMENTS; Start 07/16/19 at 12:00; Status Cancel Sodium Chloride 1,000 ml @ 125 mls/hr Q8H IV Last administered on 07/19/19at 21:40; Start 07/16/19 at 13:00 Linezolid/Dextrose 300 ml @ 300 mls/hr Q12HR IV Last administered on 07/18/19at 20:37; Start 07/16/19 at 15:00; Stop 07/19/19 at 09:06; Status DC Piperacillin Sod/ Tazobactam Sod (Zosyn Per Pharmacy) 1 each PRN DAILY PRN MC SEE COMMENTS; Start 07/16/19 at 14:00; Status Cancel Piperacillin Sod/ Tazobactam Sod 2.25 gm/Sodium Chloride 50 ml @ 100 mls/hr Q6HRS IV Last administered on 07/17/19at 05:36; Start 07/16/19 at 14:00; Stop 07/17/19 at 07:52; Status DC Albuterol Sulfate (Ventolin Neb Soln) 2.5 mg PRN Q4HRS PRN NEB SHORTNESS OF BREATH Last administered on 07/18/19at 23:49; Start 07/16/19 at 14:15 Insulin Human Lispro (HumaLOG) 6 units 1X ONCE SQ Last administered on 07/16/19at 21:07; Start 07/16/19 at 21:30; Stop 07/16/19 at 21:31; Status DC Azithromycin 500 mg/Sodium Chloride 250 ml @ 250 mls/hr Q24H IV Last administered on 07/19/19at 06:23; Start 07/17/19 at 07:00; Stop 07/19/19 at 09:09; Status DC Acetaminophen/ Hydrocodone Bitart (Lortab 5/325) 1 tab PRN Q4HRS PRN PO MODERATE PAIN 4-6 Last administered on 07/17/19at 06:16; Start 07/17/19 at 06:15 Insulin Human Lispro (HumaLOG) 0-9 UNITS TIDACHC SQ Last administered on 07/19/19at 17:57; Start 07/17/19 at 11:30 Dextrose (Dextrose 50%-Water Syringe) 12.5 gm PRN Q15MIN PRN IV SEE COMMENTS; Start 07/17/19 at 08:00 Atorvastatin Calcium (Lipitor) 20 mg QHS PO Last administered on 07/17/19at 21:18; Start 07/17/19 at 21:00; Stop 07/18/19 at 12:04; Status DC Insulin Human Lispro (HumaLOG) 8 units TIDWMEALS SQ Last administered on 07/19/19at 17:58; Start 07/17/19 at 08:00 Insulin Glargine (Lantus Syringe) 28 unit QHS SQ Last administered on 07/18/19at 20:42; Start 07/17/19 at 21:00 Aspirin (Aspirin Chewable) 81 mg DAILYWBKFT PO Last administered on 07/19/19at 09:22; Start 07/17/19 at 08:00 Piperacillin Sod/ Tazobactam Sod 2.25 gm/Sodium Chloride 50 ml @ 100 mls/hr Q8H IV Last administered on 07/19/19at 05:11; Start 07/17/19 at 14:00; Stop 07/19/19 at 09:06; Status DC Ondansetron HCl (Zofran) 4 mg PRN Q4HRS PRN IV NAUSEA/VOMITING; Start 07/17/19 at 10:30 Lidocaine (Lidoderm) 1 patch DAILY TD Last administered on 07/17/19at 13:18; Start 07/17/19 at 10:30 Cyclobenzaprine HCl (Flexeril) 10 mg PRN Q6HRS PRN PO MUSCLE SPASMS; Start 07/17/19 at 10:30 Miscellaneous (Lidoderm Patch Removal) 1 ea QHS MC Last administered on 07/18/19at 21:00; Start 07/17/19 at 21:00 Lactobacillus Rhamnosus (Culturelle) 1 cap BID PO Last administered on 07/19/19at 21:40; Start 07/18/19 at 21:00 Acetaminophen (Tylenol) 650 mg PRN Q6HRS PRN PO FEVER > 100.3'F Last administered on 07/19/19at 00:51; Start 07/19/19 at 00:45 Levofloxacin (Levaquin) 750 mg ONCE ONCE PO Last administered on 07/19/19at 09:23; Start 07/19/19 at 10:00; Stop 07/19/19 at 10:01; Status DC Amlodipine Besylate (Norvasc) 10 mg DAILY PO Last administered on 07/19/19at 17:52; Start 07/19/19 at 12:15 Active Scripts Active Glucophage (Metformin Hcl) 500 Mg Tablet 500 Mg PO BIDWMEALS Prinivil (Lisinopril) 5 Mg Tablet 10 Mg PO DAILY Levemir Flextouch (Insulin Detemir) 300 Units/3 Ml Insuln.pen 28 Units SQ QHS Novolog Flexpen (Insulin Aspart) 300 Units/3 Ml Insuln.pen 18 Units SQ TIDAC [Aspirin] 81 MG Tablet.dr 81 Mg PO DAILYWBKFT Lipitor (Atorvastatin Calcium) 20 Mg Tablet 20 Mg PO QHS Vitals/I & O Vital Sign - Last 24 Hours 07/19/19 07/19/19 07/19/19 07/19/19 11:17 11:20 15:42 17:52 Temp 97.3 98.1 97.3 98.1 Pulse 85 93 93 Resp 20 18 B/P (MAP) 157/94 (115) 150/100 (117) 150/100 Pulse Ox 93 93 98 O2 Delivery Nasal Cannula Nasal Cannula Nasal Cannula O2 Flow Rate 3.0 3.0 3.0 07/19/19 07/19/19 07/19/19 07/19/19 19:00 20:00 23:05 23:31 Temp 99.4 98.8 99.4 98.8 Pulse 91 94 94 Resp 18 18 B/P (MAP) 148/91 (110) 173/93 (119) 173/93 Pulse Ox 96 95 O2 Delivery Nasal Cannula Nasal Cannula Nasal Cannula O2 Flow Rate 3.0 3.0 3.0 07/20/19 07/20/19 04:03 07:48 Temp 98.6 97.9 98.6 97.9 Pulse 94 81 Resp 19 19 B/P (MAP) 158/90 (112) 162/98 (119) Pulse Ox 95 96 O2 Delivery Nasal Cannula Nasal Cannula O2 Flow Rate 3.0 3.0 Intake and Output 07/19/19 07/19/19 07/20/19 15:00 23:00 07:00 Intake Total 400 ml 2320 ml Output Total 1900 ml Balance 400 ml 420 ml KEERTHI DURAN MD Jul 20, 2019 08:07
[2019-07-20] MEDS: LIDOCAINE (700MG/PATCH) PATCH. TD SCH (08:14)
[2019-07-20] MEDS: amLODIPine BESYLATE 10 MG TABLET PO SCH (08:15)
[2019-07-20] MEDS: LACTOBACILLUS RHAMNOSUS GG 1 CAPSULE. PO SCH ×2 (08:15→21:20)
[2019-07-20] MEDS: ASPIRIN CHEWABLE 81 MG TABLET. PO SCH (08:15)
[2019-07-20] MEDS: IV NORMAL SALINE 1000ML BAG 1,000 ML IV SCH (08:16)
[2019-07-20] MEDS: INSULIN LISPRO 300 UNITS/3 ML VIAL. SQ SCH ×7 (08:22→21:00)
--- NOTE | 2019-07-20 08:42 | PDOC ---
Infectious Disease Note Subjective: Subjective Patient feels better Continues to have cough with bloodstained sputum Maintaining good urine output Denies nausea, vomiting, worsening cough or shortness of breath, diarrhea, abdominal pain, rash Continues to have muscle stiffness Afebrile last 24-hour Vital Signs: Vital Signs Vital Signs Date Time Temp Pulse Resp B/P (MAP) Pulse Ox O2 Delivery O2 Flow Rate FiO2 07/20/19 08:15 83 162/98 07/20/19 07:48 97.9 19 96 Nasal Cannula 3.0 97.9 Physical Exam: PHYSICAL EXAM GENERAL: The patient is propped up in bed, appears comfortable though tired appearing HEENT: Pupils equally round. Normal conjunctivae. Oropharynx pink. No lesions seen. NECK: Supple. LUNGS: Diminished aeration. No accessory muscle use. CARDIAC: S1 and S2 regular. ABDOMEN: Obese, soft. No grimace or guarding to palpation. Bowel sounds present. GENITOURINARY: Indwelling Dennison in place. EXTREMITIES: No gross edema or cyanosis. SKIN: Warm to touch. No signs of rash. NEUROLOGIC: Alert oriented x3, grossly nonfocal Medications: Inpatient Meds: Current Medications Medications (Trade) Dose Ordered Sig/Joan Start Time Stop Time Status Last Admin Dose Admin Acetaminophen (Tylenol) 650 mg PRN Q6HRS PRN 07/19/19 00:45 07/19/19 00:51 650 MG Acetaminophen/ Hydrocodone Bitart (Lortab 5/325) 1 tab PRN Q4HRS PRN 07/17/19 06:15 07/17/19 06:16 1 TAB Al Hydroxide/Mg Hydroxide (Mylanta Plus Xs) 30 ml PRN DAILY PRN 07/16/19 11:00 Albuterol Sulfate (Ventolin Neb Soln) 2.5 mg PRN Q4HRS PRN 07/16/19 14:15 07/18/19 23:49 2.5 MG Albuterol/ Ipratropium (Duoneb) 3 ml Q4HRS 07/16/19 12:00 07/16/19 14:10 DC Amlodipine Besylate (Norvasc) 10 mg DAILY 07/19/19 12:15 07/20/19 08:15 10 MG Aspirin (Aspirin Chewable) 81 mg DAILYWBKFT 07/17/19 08:00 07/20/19 08:15 81 MG Atorvastatin Calcium (Lipitor) 20 mg QHS 07/17/19 21:00 07/18/19 12:04 DC 07/17/19 21:18 20 MG Azithromycin 250 ml @ 250 mls/hr DAILY07 07/17/19 07:00 Cancel Azithromycin 500 mg/Sodium Chloride 250 ml @ 250 mls/hr Q24H 07/17/19 07:00 07/19/19 09:09 DC 07/19/19 06:23 250 MLS/HR Ceftriaxone Sodium (Rocephin) 1 gm DAILY07 07/17/19 07:00 07/16/19 13:59 DC Clonidine HCl (Catapres) 0.1 mg PRN Q6HRS PRN 07/16/19 11:00 07/19/19 23:31 0.1 MG Cyclobenzaprine HCl (Flexeril) 10 mg PRN Q6HRS PRN 07/17/19 10:30 Dextrose (Dextrose 50%-Water Syringe) 12.5 gm PRN Q15MIN PRN 07/17/19 08:00 Docusate Sodium (Colace) 100 mg PRN BID PRN 07/16/19 11:00 Enoxaparin Sodium (Lovenox 40mg Syringe) 40 mg Q24H 07/16/19 11:00 07/19/19 12:56 40 MG Guaifenesin (Robitussin) 200 mg PRN Q4HRS PRN 07/16/19 11:00 Ibuprofen (Motrin) 800 mg 1X ONCE 07/16/19 11:00 07/16/19 11:03 DC Insulin Glargine (Lantus Syringe) 28 unit QHS 07/17/19 21:00 07/18/19 20:42 28 UNIT Insulin Human Lispro (HumaLOG) 8 units TIDWMEALS 07/17/19 08:00 07/20/19 08:22 8 UNITS Lactobacillus Rhamnosus (Culturelle) 1 cap BID 07/18/19 21:00 07/20/19 08:15 1 CAP Levofloxacin (Levaquin) 750 mg ONCE ONCE 07/19/19 10:00 07/19/19 10:01 DC 07/19/19 09:23 750 MG Lidocaine (Lidoderm) 1 patch DAILY 07/17/19 10:30 07/17/19 13:18 1 PATCH Linezolid/Dextrose 300 ml @ 300 mls/hr Q12HR 07/16/19 15:00 07/19/19 09:06 DC 07/18/19 20:37 300 MLS/HR Miscellaneous (Lidoderm Patch Removal) 1 ea QHS 07/17/19 21:00 07/18/19 21:00 1 EA Ondansetron HCl (Zofran) 4 mg PRN Q4HRS PRN 07/17/19 10:30 Piperacillin Sod/ Tazobactam Sod (Zosyn Per Pharmacy) 1 each PRN DAILY PRN 07/16/19 14:00 Cancel Piperacillin Sod/ Tazobactam Sod 2.25 gm/Sodium Chloride 50 ml @ 100 mls/hr Q8H 07/17/19 14:00 07/19/19 09:06 DC 07/19/19 05:11 100 MLS/HR Sodium Monofluorophosphate (Fleet Adult) 133 ml PRN DAILY PRN 07/16/19 11:00 Sodium Chloride 1,000 ml @ 125 mls/hr Q8H 07/16/19 13:00 07/20/19 08:16 125 MLS/HR Sodium Chloride (Normal Saline Flush) 3 ml QSHIFT PRN 07/16/19 11:00 Labs: Lab Laboratory Tests Test 07/19/19 11:31 07/19/19 16:26 07/19/19 20:40 07/19/19 22:10 Glucose (Fingerstick) 256 mg/dL (70-99) 175 mg/dL (70-99) 68 mg/dL (70-99) 101 mg/dL (70-99) Test 07/20/19 04:10 07/20/19 07:51 Sodium Level 142 mmol/L (136-145) Potassium Level 3.4 mmol/L (3.5-5.1) Chloride Level 106 mmol/L (98-107) Carbon Dioxide Level 25 mmol/L (21-32) Anion Gap 11 (6-14) Blood Urea Nitrogen 36 mg/dL (8-26) Creatinine 2.0 mg/dL (0.7-1.3) Estimated GFR (Cockcroft-Gault) 42.5 Glucose Level 167 mg/dL (70-99) Calcium Level 8.5 mg/dL (8.5-10.1) Creatine Kinase 44566 U/L (39-308) Glucose (Fingerstick) 197 mg/dL (70-99) Objective: Assessment: 1. Sepsis present on admission. 2. Complicated Severe Legionella pneumonia complicated with severe rhabdomyolysis and renal failure. 3. Severe Rhabdomyolysis 4. Fever resolved 5. Acute encephalopathy. improved 6. Acute kidney injury.improving 7. Transaminitis. 8. Diabetes. 9. Hypertension. 10. Obesity. 11. Sleep apnea. 12 hypokalemia 13. COVID-19 negative Plan: Plan of Care cont Levofloxacin 07/18, was on azithromycin prior CPK 27 K increased to today Patient denies any illicit drug use maintain adequate fluids, f/u cultures Monitor am labs cont supportive care Discussed with nursing staff Discussed with Dr. Garcia and АЛЕКСАНДР Hannon MD Jul 20, 2019 08:42
--- NOTE | 2019-07-20 09:38 | NUR ---
SS following up with discharge planning. SS reviewed pt chart and discussed with pt RN. Pt declining home healthcare. Pt requesting to discharge today. Pt is currently requiring oxygen. SS requested six minute walk to assess for oxygen needs. SS will continue to follow for discharge planning.
--- NOTE | 2019-07-20 10:45 | PDOC ---
PULMONARY PROGRESS NOTES Subjective awake and alert up in chair on room air denies SOA or cough Vitals Vital Signs Date Time Temp Pulse Resp B/P (MAP) Pulse Ox O2 Delivery O2 Flow Rate FiO2 07/20/19 08:15 83 162/98 07/20/19 08:00 Nasal Cannula 3.0 07/20/19 07:48 97.9 19 96 97.9 ROS: No Nausea, No Chest Pain, No Abdominal Pain, No Increase Cough General: Alert, Oriented X4, No acute distress Lungs: Clear Cardiovascular: S1, S2 Abdomen: Soft Neuro Exam: Alert Extremities: No Edema Skin: Warm, Dry Labs Laboratory Tests Test 07/18/19 11:39 07/18/19 16:28 07/18/19 20:36 07/19/19 03:15 Glucose (Fingerstick) 256 mg/dL (70-99) 219 mg/dL (70-99) 160 mg/dL (70-99) Sodium Level 139 mmol/L (136-145) Potassium Level 3.5 mmol/L (3.5-5.1) Chloride Level 104 mmol/L (98-107) Carbon Dioxide Level 23 mmol/L (21-32) Anion Gap 12 (6-14) Blood Urea Nitrogen 45 mg/dL (8-26) Creatinine 2.8 mg/dL (0.7-1.3) Estimated GFR (Cockcroft-Gault) 28.8 Glucose Level 190 mg/dL (70-99) Calcium Level 8.5 mg/dL (8.5-10.1) Magnesium Level 2.0 mg/dL (1.8-2.4) Creatine Kinase 36401 U/L (39-308) Test 07/19/19 07:16 07/19/19 11:31 07/19/19 16:26 07/19/19 20:40 Glucose (Fingerstick) 211 mg/dL (70-99) 256 mg/dL (70-99) 175 mg/dL (70-99) 68 mg/dL (70-99) Test 07/19/19 22:10 07/20/19 04:10 07/20/19 07:51 Glucose (Fingerstick) 101 mg/dL (70-99) 197 mg/dL (70-99) Sodium Level 142 mmol/L (136-145) Potassium Level 3.4 mmol/L (3.5-5.1) Chloride Level 106 mmol/L (98-107) Carbon Dioxide Level 25 mmol/L (21-32) Anion Gap 11 (6-14) Blood Urea Nitrogen 36 mg/dL (8-26) Creatinine 2.0 mg/dL (0.7-1.3) Estimated GFR (Cockcroft-Gault) 42.5 Glucose Level 167 mg/dL (70-99) Calcium Level 8.5 mg/dL (8.5-10.1) Creatine Kinase 87786 U/L (39-308) Laboratory Tests Test 07/19/19 11:31 07/19/19 16:26 07/19/19 20:40 07/19/19 22:10 Glucose (Fingerstick) 256 mg/dL (70-99) 175 mg/dL (70-99) 68 mg/dL (70-99) 101 mg/dL (70-99) Test 07/20/19 04:10 07/20/19 07:51 Sodium Level 142 mmol/L (136-145) Potassium Level 3.4 mmol/L (3.5-5.1) Chloride Level 106 mmol/L (98-107) Carbon Dioxide Level 25 mmol/L (21-32) Anion Gap 11 (6-14) Blood Urea Nitrogen 36 mg/dL (8-26) Creatinine 2.0 mg/dL (0.7-1.3) Estimated GFR (Cockcroft-Gault) 42.5 Glucose Level 167 mg/dL (70-99) Calcium Level 8.5 mg/dL (8.5-10.1) Creatine Kinase 35162 U/L (39-308) Glucose (Fingerstick) 197 mg/dL (70-99) Medications Active Scripts Medications Dose Route/Sig Max Daily Dose Days Date Category Glucophage (Metformin Hcl) 500 Mg Tablet 500 Mg PO BIDWMEALS 08/05/14 Rx Prinivil (Lisinopril) 5 Mg Tablet 10 Mg PO DAILY 08/05/14 Rx Levemir Flextouch (Insulin Detemir) 300 Units/3 Ml Insuln.pen 28 Units SQ QHS 08/05/14 Rx Novolog Flexpen (Insulin Aspart) 300 Units/3 Ml Insuln.pen 18 Units SQ TIDAC 08/05/14 Rx [Aspirin] 81 MG Tablet.dr 81 Mg PO DAILYWBKFT 08/05/14 Rx Lipitor (Atorvastatin Calcium) 20 Mg Tablet 20 Mg PO QHS 08/05/14 Rx Comments CXR 07/19/2019 Impression: Dense left lung consolidation again seen. No new process in the interval. Continued follow-up to resolution recommended. Impression . 1. Acute hypoxic respiratory failure secondary to sepsis. resolved 2. Metabolic encephalopathy secondary to sepsis., resolved 3. Marked consolidation in the left lower lobe along with fever and leukocytosis. Highly consistent with pneumonia, legionella positive to altered mental status. COVID-19 neg --- improving 4. Hyponatremia. 5. Acute kidney injury with metabolic acidosis--improving 6. Hypomagnesemia. 7. Mildly increased troponin level. 8. Abnormal D-dimer. Could be nonspecific. Neg venous Dopplers 9. Marked leukocytosis secondary to pneumonia. improved Plan . Continue with present oxygen, now on room air, clinically stable from pulmonary standpoint COVID test neg IV hydration and monitor renal function , improving---Follow renal recommendations. Follow ID recommendations for legionella Neg all cultures.so far CT chest with extensive pneumonia.OMAR/Lingula,CXR continues to show PNA in LLL however improved opacities in LLL Monitor LFTs. DVT/GI PPX Plan to D/C in next 24- 48 hours ESCOBAR SERVIN MD Jul 20, 2019 10:45
--- NOTE | 2019-07-20 11:00 | PDOC ---
Renal-Progress Notes Subjective Notes Notes STABLE History of Present Illness Hx of present illness FEELING BETTER Vitals Vitals Vital Signs Date Time Temp Pulse Resp B/P (MAP) Pulse Ox O2 Delivery O2 Flow Rate FiO2 07/20/19 08:15 83 162/98 07/20/19 08:00 Nasal Cannula 3.0 07/20/19 07:48 97.9 19 96 97.9 Weight Weight [ ] I.O. Intake and Output Intake and Output 07/20/19 07:00 Intake Total 2720 ml Output Total 1900 ml Balance 820 ml Intake Oral 1220 ml Other 1500 ml Output Urine Total 1900 ml Labs Labs Laboratory Tests Test 07/19/19 11:31 07/19/19 16:26 07/19/19 20:40 07/19/19 22:10 Glucose (Fingerstick) 256 mg/dL (70-99) 175 mg/dL (70-99) 68 mg/dL (70-99) 101 mg/dL (70-99) Test 07/20/19 04:10 07/20/19 07:51 Sodium Level 142 mmol/L (136-145) Potassium Level 3.4 mmol/L (3.5-5.1) Chloride Level 106 mmol/L (98-107) Carbon Dioxide Level 25 mmol/L (21-32) Anion Gap 11 (6-14) Blood Urea Nitrogen 36 mg/dL (8-26) Creatinine 2.0 mg/dL (0.7-1.3) Estimated GFR (Cockcroft-Gault) 42.5 Glucose Level 167 mg/dL (70-99) Calcium Level 8.5 mg/dL (8.5-10.1) Creatine Kinase 75628 U/L (39-308) Glucose (Fingerstick) 197 mg/dL (70-99) Micro Micro Microbiology 07/16/19 Urine Culture - Final, Complete 07/16/19 Blood Culture - Preliminary, Resulted NO GROWTH AFTER 3 DAYS Review of Systems Constitutional: yes: weakness, alert, oriented, other (NO MYALGIA) Ears/Nose/Throat: Yes: no symptom reported Eyes: Yes: no symptom reported Pulmonary: Yes no symptom reported Cardiovascular: Yes no symptom reported Gastrointestional: Yes: no symptom reported Genitourinary: Yes: no symptom reported Musculoskeletal: Yes: no symptom reported Skin: Yes no symptom reported Psychiatric/Neurological: Yes: no symptom reported Endocrine: Yes: no symptom reported Physical Exam General Appearance: no apparent distress Skin: warm Respiratory: bilateral CTA Heart: S1S2, no thrills Abdomen: soft, bowel sounds present Genitourinary: bladder flat Neurology: alert, oriented, follow commands Assessment Assessment IMP RENAL FAILURE-ACUTE WITH CR OF DOWN TO 2.0 PROB CKD - UNKNOWN STAGE RHABDOMYOLYSIS-CPK UP TODAY-LIKELY DUE TO LEGIONELLA SEPSIS PNEUMONIA LEUCOCYTOSIS HYPONATREMIA-BETTER LOW MAG-CORRECTED HEPATIC STEATOSIS PLAN HYDRATION SERIAL CPK [facility] ANTIBIOTICS RENAL SONOGRAM NEG WILL FOLLOW LABS IN AM D/W FEDE ZHAO MD Jul 20, 2019 11:00
[2019-07-20] MEDS: ENOXAPARIN 40 MG/0.4 ML SYRINGE. SQ SCH (11:24)
--- NOTE | 2019-07-20 11:36 | PDOC ---
[facility] [employer] 07/20/19 1136: CARDIO Progress Notes Date and Time Date of Service 07/20/2019 Time of Evaluation 1030 Subjective Subjective: No Chest Pain, No shortness of breath, No Palpitations Vitals Vitals Vital Signs Date Time Temp Pulse Resp B/P (MAP) Pulse Ox O2 Delivery O2 Flow Rate FiO2 07/20/19 11:01 98.2 88 20 149/88 (108) 97 Nasal Cannula 3.0 98.2 Weight Weight [ ] Input and Output Intake and Output Intake and Output 07/20/19 07:00 Intake Total 2720 ml Output Total 1900 ml Balance 820 ml Intake Oral 1220 ml Other 1500 ml Output Urine Total 1900 ml Laboratory Labs Laboratory Tests Test 07/19/19 16:26 07/19/19 20:40 07/19/19 22:10 07/20/19 04:10 Glucose (Fingerstick) 175 mg/dL (70-99) 68 mg/dL (70-99) 101 mg/dL (70-99) Sodium Level 142 mmol/L (136-145) Potassium Level 3.4 mmol/L (3.5-5.1) Chloride Level 106 mmol/L (98-107) Carbon Dioxide Level 25 mmol/L (21-32) Anion Gap 11 (6-14) Blood Urea Nitrogen 36 mg/dL (8-26) Creatinine 2.0 mg/dL (0.7-1.3) Estimated GFR (Cockcroft-Gault) 42.5 Glucose Level 167 mg/dL (70-99) Calcium Level 8.5 mg/dL (8.5-10.1) Creatine Kinase 73243 U/L (39-308) Test 07/20/19 07:51 Glucose (Fingerstick) 197 mg/dL (70-99) Microbiology Micro Microbiology 07/16/19 Urine Culture - Final, Complete 07/16/19 Blood Culture - Preliminary, Resulted NO GROWTH AFTER 3 DAYS Review of Systems Constitutional: yes: weakness, alert, oriented, other (NO MYALGIA) Ears/Nose/Throat: Yes: no symptom reported Eyes: Yes: no symptom reported Pulmonary: Yes no symptom reported Cardiovascular: Yes no symptom reported Gastrointestional: Yes: no symptom reported Genitourinary: Yes: no symptom reported Musculoskeletal: Yes: no symptom reported Skin: Yes no symptom reported Psychiatric/Neurological: Yes: no symptom reported Endocrine: Yes: no symptom reported Physical Exam HEENT: Neck Supple W Full Motion Chest: Symmetric LUNGS: Clear to Auscultation Heart: S1S2, RRR (SR) Abdomen: Soft N/T Extremities: Other (trace bilateral LE edema ) Neurology: alert, oriented, follow commands Assessment Assessment 1. Acute respiratory failure with legionella PNA and sepsis. EF and WM nml 2. BERTIN likely on CKD3 with associated severe rhabdo. Cr down to 2. per nephrology 3. Rhabdomyolysis: CK ^[id number] 4. Hypertension: better with norvasc 5. DM2: BG better per PCP 6. Elevated troponin; peaked 0.116. Suspect demand mediated, no CP 7. DLP: elevated TG and low HDL 8. Suspect chronic diastolic CHF: compensated Recommendations 1. Continue with norvasc. hold statin. Avoid nephrotoxic agents. IV hydration per nephrology 2. May DC tele transfer to [facility] floor. 3. Consider outpt ischemic eval. 4. Hydration adequacy Justicifation of Admission Dx: Justifications for Admission: Justification of Admission Dx: Yes Respiratory Failure: Severe Resp Distress Aspiration Pneumonia: Hypoxemia Comminuty Aquired Pneumonia: Hypoxemia Chronic Renal Failure: Electrolyte Abnormality Sepsis: Altered Mental Status Acute COPD Exacerbation: Acute COPD Exacerbation IL: Acute NSTEMI ALLISON FIGUEROA MD 07/20/19 1722: CARDIO Progress Notes Assessment Assessment Patient seen and evaluated Acute respiratory failure with legionella PNA and sepsis. EF and WM nml. Continues improvement. BERTIN likely on CKD3 with associated severe rhabdo. Cr down to 2. per nephrology Rhabdomyolysis Hypertension: better with norvasc Elevated troponin; peaked 0.116. Suspect demand mediated, no CP. Outpatient follow-up. DLP: elevated TG and low HDL Chronic diastolic CHF: compensated. SLOAN LANE APRN Jul 20, 2019 11:36 ALLISON FIGUEROA MD Jul 20, 2019 17:22
--- NOTE | 2019-07-20 11:50 | NUR ---
report called to [facility] on 4th floor. Pt will transfer to room 414 from 260. all belongings sent with the pt and pt transported via wheelchair and transportation.
--- NOTE | 2019-07-20 12:00 | NUR ---
Pt arrived via wheelchair from rm 260. VSS. Denies pain. Oriented to room and routines. Call light within reach. Will return to monitor.
[2019-07-20] MEDS: SODIUM BICARBONATE VIAL 50 MEQ in IV 1/2 NORMAL SALINE 1,000 ML IV SCH ×2 (13:36→21:22)
[2019-07-20] MEDS: PATCH REMOVAL. MC SCH (21:00)
--- NOTE | 2019-07-20 21:00 | NUR ---
No lidoderm patch on to be removed.
[2019-07-20] MEDS: INSULIN GLARGINE SYRINGE. SQ SCH (21:26)
[2019-07-21 03:03] VITALS: BP 169/86
[2019-07-21] MEDS: SODIUM BICARBONATE VIAL 50 MEQ in IV 1/2 NORMAL SALINE 1,000 ML IV SCH (04:28)
[2019-07-21 05:56] LABS: CALCIUM 8.6 mg/dL (8.5-10.1); CREATININE 1.7 mg/dL (0.7-1.3); GFR 51.3; MAGNESIUM 1.6 mg/dL (1.8-2.4)
[2019-07-21 05:58] LABS: POTASSIUM 2.8 mmol/L (3.5-5.1)
[2019-07-21] MEDS ORDERED: POTASSIUM CHLORIDE 20 MEQ TABLET.ER. PO ONE ×2 (06:45→10:30)
[2019-07-21] MEDS: INSULIN LISPRO 300 UNITS/3 ML VIAL. SQ SCH ×4 (07:30→11:59)
[2019-07-21 08:00] VITALS: BP 176/101
[2019-07-21] MEDS: ASPIRIN CHEWABLE 81 MG TABLET. PO SCH (08:23)
[2019-07-21] MEDS: LACTOBACILLUS RHAMNOSUS GG 1 CAPSULE. PO SCH (08:23)
[2019-07-21] MEDS: amLODIPine BESYLATE 10 MG TABLET PO SCH (08:24)
[2019-07-21] MEDS: LIDOCAINE (700MG/PATCH) PATCH. TD SCH (08:25)
--- NOTE | 2019-07-21 08:36 | PDOC ---
Infectious Disease Note Subjective: Subjective pt feels much better no f/n/v/d/abdo pain urine is clear cough has improved no chestpain or body aches eager for dc home today Vital Signs: Vital Signs Vital Signs Date Time Temp Pulse Resp B/P (MAP) Pulse Ox O2 Delivery O2 Flow Rate FiO2 07/21/19 08:24 83 179/110 07/21/19 03:03 98.7 20 92 Room Air 98.7 07/20/19 11:01 3.0 Physical Exam: PHYSICAL EXAM GENERAL: The patient is propped up in bed, appears comfortable though tired appearing HEENT: Pupils equally round. Normal conjunctivae. Oropharynx pink. No lesions seen. NECK: Supple. LUNGS: Diminished aeration. No accessory muscle use. CARDIAC: S1 and S2 regular. ABDOMEN: Obese, soft. No grimace or guarding to palpation. Bowel sounds present. GENITOURINARY: Indwelling Dennison in place. EXTREMITIES: No gross edema or cyanosis. SKIN: Warm to touch. No signs of rash. NEUROLOGIC: Alert oriented x3, grossly nonfocal Medications: Inpatient Meds: Current Medications Medications (Trade) Dose Ordered Sig/Joan Start Time Stop Time Status Last Admin Dose Admin Acetaminophen (Tylenol) 650 mg PRN Q6HRS PRN 07/19/19 00:45 07/19/19 00:51 650 MG Acetaminophen/ Hydrocodone Bitart (Lortab 5/325) 1 tab PRN Q4HRS PRN 07/17/19 06:15 07/17/19 06:16 1 TAB Al Hydroxide/Mg Hydroxide (Mylanta Plus Xs) 30 ml PRN DAILY PRN 07/16/19 11:00 Albuterol Sulfate (Ventolin Neb Soln) 2.5 mg PRN Q4HRS PRN 07/16/19 14:15 07/18/19 23:49 2.5 MG Albuterol/ Ipratropium (Duoneb) 3 ml Q4HRS 07/16/19 12:00 07/16/19 14:10 DC Amlodipine Besylate (Norvasc) 10 mg DAILY 07/19/19 12:15 07/21/19 08:24 10 MG Aspirin (Aspirin Chewable) 81 mg DAILYWBKFT 07/17/19 08:00 07/21/19 08:23 81 MG Atorvastatin Calcium (Lipitor) 20 mg QHS 07/17/19 21:00 07/18/19 12:04 DC 07/17/19 21:18 20 MG Azithromycin 250 ml @ 250 mls/hr DAILY07 07/17/19 07:00 Cancel Azithromycin 500 mg/Sodium Chloride 250 ml @ 250 mls/hr Q24H 07/17/19 07:00 07/19/19 09:09 DC 07/19/19 06:23 250 MLS/HR Ceftriaxone Sodium (Rocephin) 1 gm DAILY07 07/17/19 07:00 07/16/19 13:59 DC Clonidine HCl (Catapres) 0.1 mg PRN Q6HRS PRN 07/16/19 11:00 07/19/19 23:31 0.1 MG Cyclobenzaprine HCl (Flexeril) 10 mg PRN Q6HRS PRN 07/17/19 10:30 Dextrose (Dextrose 50%-Water Syringe) 12.5 gm PRN Q15MIN PRN 07/17/19 08:00 Docusate Sodium (Colace) 100 mg PRN BID PRN 07/16/19 11:00 Enoxaparin Sodium (Lovenox 40mg Syringe) 40 mg Q24H 07/16/19 11:00 07/20/19 11:24 40 MG Guaifenesin (Robitussin) 200 mg PRN Q4HRS PRN 07/16/19 11:00 Ibuprofen (Motrin) 800 mg 1X ONCE 07/16/19 11:00 07/16/19 11:03 DC Insulin Glargine (Lantus Syringe) 28 unit QHS 07/17/19 21:00 07/20/19 21:26 28 UNIT Insulin Human Lispro (HumaLOG) 8 units TIDWMEALS 07/17/19 08:00 07/20/19 17:37 8 UNITS Lactobacillus Rhamnosus (Culturelle) 1 cap BID 07/18/19 21:00 07/21/19 08:23 1 CAP Levofloxacin (Levaquin) 500 mg DAILY06 07/20/19 11:00 07/21/19 05:59 500 MG Lidocaine (Lidoderm) 1 patch DAILY 07/17/19 10:30 07/17/19 13:18 1 PATCH Linezolid/Dextrose 300 ml @ 300 mls/hr Q12HR 07/16/19 15:00 07/19/19 09:06 DC 07/18/19 20:37 300 MLS/HR Miscellaneous (Lidoderm Patch Removal) 1 ea QHS 07/17/19 21:00 07/18/19 21:00 1 EA Ondansetron HCl (Zofran) 4 mg PRN Q4HRS PRN 07/17/19 10:30 Piperacillin Sod/ Tazobactam Sod (Zosyn Per Pharmacy) 1 each PRN DAILY PRN 07/16/19 14:00 Cancel Piperacillin Sod/ Tazobactam Sod 2.25 gm/Sodium Chloride 50 ml @ 100 mls/hr Q8H 07/17/19 14:00 07/19/19 09:06 DC 07/19/19 05:11 100 MLS/HR Potassium Chloride (Klor-Con) 40 meq 1X ONCE 07/21/19 06:45 07/21/19 06:49 DC 07/21/19 07:50 40 MEQ Sodium Bicarbonate 50 meq/Sodium Chloride 1,050 ml @ 150 mls/hr Q7H 07/20/19 11:00 07/21/19 04:28 150 MLS/HR Sodium Monofluorophosphate (Fleet Adult) 133 ml PRN DAILY PRN 07/16/19 11:00 Sodium Chloride 1,000 ml @ 125 mls/hr Q8H 07/16/19 13:00 07/20/19 11:01 DC 07/20/19 08:16 125 MLS/HR Sodium Chloride (Normal Saline Flush) 3 ml QSHIFT PRN 07/16/19 11:00 Labs: Lab Laboratory Tests Test 07/20/19 11:33 07/20/19 16:32 07/20/19 20:15 07/21/19 04:17 Glucose (Fingerstick) 195 mg/dL (70-99) 228 mg/dL (70-99) 116 mg/dL (70-99) Sodium Level 143 mmol/L (136-145) Potassium Level 2.8 mmol/L (3.5-5.1) Chloride Level 104 mmol/L (98-107) Carbon Dioxide Level 28 mmol/L (21-32) Anion Gap 11 (6-14) Blood Urea Nitrogen 26 mg/dL (8-26) Creatinine 1.7 mg/dL (0.7-1.3) Estimated GFR (Cockcroft-Gault) 51.3 Glucose Level 86 mg/dL (70-99) Calcium Level 8.6 mg/dL (8.5-10.1) Phosphorus Level 3.0 mg/dL (2.6-4.7) Magnesium Level 1.6 mg/dL (1.8-2.4) Test 07/21/19 07:07 Glucose (Fingerstick) 104 mg/dL (70-99) Objective: Assessment: 1. Sepsis present on admission. 2. Complicated Severe Legionella pneumonia complicated with severe rhabdomyolysis and renal failure. 3. Severe Rhabdomyolysis 4. Fever resolved 5. Acute encephalopathy. improved 6. Acute kidney injury.improving 7. Transaminitis. 8. Diabetes. 9. Hypertension. 10. Obesity. 11. Sleep apnea. 12 hypokalemia 13. COVID-19 negative Plan: Plan of Care Pt wants to be dc home today as he feels back to baseline CPK coming down though still at 20 K Creat down to 1.5 Levofloxacin 750 mg po qd for 7 days encouraged to drink fluids Monitor electrolytes F/U ID Clinic on 07/26 at 4;15 pm with labs cbc/cmp/cpk d/w RN and АЛЕКСАНДР Aj MD Jul 21, 2019 08:36
--- NOTE | 2019-07-21 09:06 | NUR ---
SW following. Discussed with RN, pt wanting to discharge home, given potassium today as lab was low. RN advised no SW needs.
--- NOTE | 2019-07-21 09:34 | PDOC ---
PULMONARY PROGRESS NOTES Subjective awake and alert up in chair on room air Denies SOA or cough or CP Ready to go home Vitals Vital Signs Date Time Temp Pulse Resp B/P (MAP) Pulse Ox O2 Delivery O2 Flow Rate FiO2 07/21/19 08:24 83 179/110 07/21/19 03:03 98.7 20 92 Room Air 98.7 07/20/19 11:01 3.0 ROS: No Nausea, No Chest Pain, No Abdominal Pain, No Increase Cough General: Alert, Oriented X4, No acute distress Lungs: Clear Cardiovascular: S1, S2 Abdomen: Soft Neuro Exam: Alert Extremities: No Edema Skin: Warm, Dry Labs Laboratory Tests Test 07/19/19 11:31 07/19/19 16:26 07/19/19 20:40 07/19/19 22:10 Glucose (Fingerstick) 256 mg/dL (70-99) 175 mg/dL (70-99) 68 mg/dL (70-99) 101 mg/dL (70-99) Test 07/20/19 04:10 07/20/19 07:51 07/20/19 11:33 07/20/19 16:32 Sodium Level 142 mmol/L (136-145) Potassium Level 3.4 mmol/L (3.5-5.1) Chloride Level 106 mmol/L (98-107) Carbon Dioxide Level 25 mmol/L (21-32) Anion Gap 11 (6-14) Blood Urea Nitrogen 36 mg/dL (8-26) Creatinine 2.0 mg/dL (0.7-1.3) Estimated GFR (Cockcroft-Gault) 42.5 Glucose Level 167 mg/dL (70-99) Calcium Level 8.5 mg/dL (8.5-10.1) Creatine Kinase 18261 U/L (39-308) Glucose (Fingerstick) 197 mg/dL (70-99) 195 mg/dL (70-99) 228 mg/dL (70-99) Test 07/20/19 20:15 07/21/19 04:17 07/21/19 07:07 Glucose (Fingerstick) 116 mg/dL (70-99) 104 mg/dL (70-99) Sodium Level 143 mmol/L (136-145) Potassium Level 2.8 mmol/L (3.5-5.1) Chloride Level 104 mmol/L (98-107) Carbon Dioxide Level 28 mmol/L (21-32) Anion Gap 11 (6-14) Blood Urea Nitrogen 26 mg/dL (8-26) Creatinine 1.7 mg/dL (0.7-1.3) Estimated GFR (Cockcroft-Gault) 51.3 Glucose Level 86 mg/dL (70-99) Calcium Level 8.6 mg/dL (8.5-10.1) Phosphorus Level 3.0 mg/dL (2.6-4.7) Magnesium Level 1.6 mg/dL (1.8-2.4) Laboratory Tests Test 07/20/19 11:33 07/20/19 16:32 07/20/19 20:15 07/21/19 04:17 Glucose (Fingerstick) 195 mg/dL (70-99) 228 mg/dL (70-99) 116 mg/dL (70-99) Sodium Level 143 mmol/L (136-145) Potassium Level 2.8 mmol/L (3.5-5.1) Chloride Level 104 mmol/L (98-107) Carbon Dioxide Level 28 mmol/L (21-32) Anion Gap 11 (6-14) Blood Urea Nitrogen 26 mg/dL (8-26) Creatinine 1.7 mg/dL (0.7-1.3) Estimated GFR (Cockcroft-Gault) 51.3 Glucose Level 86 mg/dL (70-99) Calcium Level 8.6 mg/dL (8.5-10.1) Phosphorus Level 3.0 mg/dL (2.6-4.7) Magnesium Level 1.6 mg/dL (1.8-2.4) Test 07/21/19 07:07 Glucose (Fingerstick) 104 mg/dL (70-99) Medications Active Scripts Medications Dose Route/Sig Max Daily Dose Days Date Category Glucophage (Metformin Hcl) 500 Mg Tablet 500 Mg PO BIDWMEALS 08/05/14 Rx Prinivil (Lisinopril) 5 Mg Tablet 10 Mg PO DAILY 08/05/14 Rx Levemir Flextouch (Insulin Detemir) 300 Units/3 Ml Insuln.pen 28 Units SQ QHS 08/05/14 Rx Novolog Flexpen (Insulin Aspart) 300 Units/3 Ml Insuln.pen 18 Units SQ TIDAC 08/05/14 Rx [Aspirin] 81 MG Tablet. 81 Mg PO DAILYWBKFT 08/05/14 Rx Lipitor (Atorvastatin Calcium) 20 Mg Tablet 20 Mg PO QHS 08/05/14 Rx Comments CXR 07/19/2019 Impression: Dense left lung consolidation again seen. No new process in the interval. Continued follow-up to resolution recommended. Impression . 1. Acute hypoxic respiratory failure secondary to sepsis---resolved 2. Metabolic encephalopathy secondary to sepsis., resolved 3. Marked consolidation in the left lower lobe along with fever and leukocytosis. Highly consistent with pneumonia, legionella positive to altered mental status. COVID-19 neg --- improving 4. Hyponatremia-- resolved 5. Acute kidney injury with metabolic acidosis--improving cr. now 1.7 6. Hypomagnesemia. 7. Mildly increased troponin level. 8. Abnormal D-dimer. Could be nonspecific. Neg venous Dopplers 9. Marked leukocytosis secondary to pneumonia. improved Plan . Remains on room air, clinically stable from pulmonary standpoint COVID test neg IV hydration and monitor renal function , improving---Follow renal recommendations--cr. is now 1.7 Follow ID recommendations for legionella Neg all cultures.so far CT chest with extensive pneumonia.OMAR/Lingula,CXR continues to show PNA in LLL however improved opacities in LLL DVT/GI PPX Ok to D/C home from our standpoint ESCOBAR SERVIN MD Jul 21, 2019 09:34
[2019-07-21] MEDS ORDERED: AMLO10TA8 PO (10:59)
[2019-07-21] MEDS ORDERED: CARV3.12 PO (10:59)
[2019-07-21] MEDS ORDERED: LEVO750T31 PO (10:59)
[2019-07-21] MEDS ORDERED: CARVEDILOL 3.125 MG TABLET. PO SCH (11:00)
[2019-07-21] MEDS ORDERED: POTA10TA17 PO (11:03)
[2019-07-21] MEDS ORDERED: MAGNESIUM SULFATE 4GM 100 ML IV ONE (11:30)
[2019-07-21] MEDS: ENOXAPARIN 40 MG/0.4 ML SYRINGE. SQ SCH (11:52)
--- NOTE | 2019-07-21 14:36 | PDOC ---
PROGRESS NOTES Subjective Subjective Patient seen and examined Objective Objective Vital Signs Date Time Temp Pulse Resp B/P (MAP) Pulse Ox O2 Delivery O2 Flow Rate FiO2 07/21/19 11:53 89 179/100 07/21/19 08:00 98.1 18 92 Room Air 98.1 07/20/19 11:01 3.0 Intake and Output 07/21/19 07:00 Intake Total 6080 ml Output Total 3250 ml Balance 2830 ml Intake Oral 1730 ml IV Total 2550 ml Other 1800 ml Output Urine Total 3250 ml Physical Exam Abdomen: Normal bowel sounds Heart: Regular rate General: No acute distress Lungs: Other (Slightly decreased breath sounds) Assessment Assessment Problems Medical Problems: (1) Acute renal failure Status: Acute (2) Hypoxemia Status: Acute (3) Sepsis Status: Acute (4) Severe sepsis Status: Acute (5) Suspected 2019-nCoV infection Status: Acute Acute respiratory failure with legionella PNA and sepsis. EF and WM nml. Patient continues to improve and looks well today. BERTIN likely on CKD3 with associated severe rhabdo. Cr improved. Continue as per nephrology. Rhabdomyolysis:resolved Hypertension: better controlled. DM2: BG better per PCP Elevated troponin; peaked 0.116. Suspect demand mediated, no CP. Continue medical treatment. Outpatient follow-up. DLP: elevated TG and low HDL Suspect chronic diastolic CHF: compensated Comment Review of Relevant I have reviewed the following items rei (where applicable) has been applied. Labs Laboratory Tests Test 07/19/19 16:26 07/19/19 20:40 07/19/19 22:10 07/20/19 04:10 Glucose (Fingerstick) 175 mg/dL (70-99) 68 mg/dL (70-99) 101 mg/dL (70-99) Sodium Level 142 mmol/L (136-145) Potassium Level 3.4 mmol/L (3.5-5.1) Chloride Level 106 mmol/L (98-107) Carbon Dioxide Level 25 mmol/L (21-32) Anion Gap 11 (6-14) Blood Urea Nitrogen 36 mg/dL (8-26) Creatinine 2.0 mg/dL (0.7-1.3) Estimated GFR (Cockcroft-Gault) 42.5 Glucose Level 167 mg/dL (70-99) Calcium Level 8.5 mg/dL (8.5-10.1) Creatine Kinase 47777 U/L (39-308) Test 07/20/19 07:51 07/20/19 11:33 07/20/19 16:32 07/20/19 20:15 Glucose (Fingerstick) 197 mg/dL (70-99) 195 mg/dL (70-99) 228 mg/dL (70-99) 116 mg/dL (70-99) Test 07/21/19 04:17 07/21/19 07:07 07/21/19 10:46 Sodium Level 143 mmol/L (136-145) Potassium Level 2.8 mmol/L (3.5-5.1) Chloride Level 104 mmol/L (98-107) Carbon Dioxide Level 28 mmol/L (21-32) Anion Gap 11 (6-14) Blood Urea Nitrogen 26 mg/dL (8-26) Creatinine 1.7 mg/dL (0.7-1.3) Estimated GFR (Cockcroft-Gault) 51.3 Glucose Level 86 mg/dL (70-99) Calcium Level 8.6 mg/dL (8.5-10.1) Phosphorus Level 3.0 mg/dL (2.6-4.7) Magnesium Level 1.6 mg/dL (1.8-2.4) Creatine Kinase 18493 U/L (39-308) Glucose (Fingerstick) 104 mg/dL (70-99) 119 mg/dL (70-99) Laboratory Tests Test 07/20/19 16:32 07/20/19 20:15 07/21/19 04:17 07/21/19 07:07 Glucose (Fingerstick) 228 mg/dL (70-99) 116 mg/dL (70-99) 104 mg/dL (70-99) Sodium Level 143 mmol/L (136-145) Potassium Level 2.8 mmol/L (3.5-5.1) Chloride Level 104 mmol/L (98-107) Carbon Dioxide Level 28 mmol/L (21-32) Anion Gap 11 (6-14) Blood Urea Nitrogen 26 mg/dL (8-26) Creatinine 1.7 mg/dL (0.7-1.3) Estimated GFR (Cockcroft-Gault) 51.3 Glucose Level 86 mg/dL (70-99) Calcium Level 8.6 mg/dL (8.5-10.1) Phosphorus Level 3.0 mg/dL (2.6-4.7) Magnesium Level 1.6 mg/dL (1.8-2.4) Creatine Kinase 68933 U/L (39-308) Test 07/21/19 10:46 Glucose (Fingerstick) 119 mg/dL (70-99) Microbiology 07/16/19 Urine Culture - Final, Complete 07/16/19 Blood Culture - Final, Complete NO GROWTH AFTER 5 DAYS Medications Current Medications Sodium Chloride 1,000 ml @ 1,000 mls/hr 1X ONCE IV Last administered on 07/16/19at 10:22; Start 07/16/19 at 10:15; Stop 07/16/19 at 11:14; Status DC Ceftriaxone Sodium (Rocephin) 1 gm 1X ONCE IVP Last administered on 07/16/19at 10:25; Start 07/16/19 at 10:15; Stop 07/16/19 at 10:17; Status DC Azithromycin 250 ml @ 250 mls/hr 1X ONCE IV Last administered on 07/16/19at 10:15; Start 07/16/19 at 10:15; Stop 07/16/19 at 11:14; Status DC Acetaminophen (Tylenol) 1,000 mg 1X ONCE PO Last administered on 07/16/19at 10:25; Start 07/16/19 at 10:15; Stop 07/16/19 at 10:17; Status DC Ibuprofen (Motrin) 800 mg 1X ONCE PO Last administered on 07/16/19at 10:25; Start 07/16/19 at 10:15; Stop 07/16/19 at 10:17; Status DC Ibuprofen (Motrin) 800 mg 1X ONCE PO ; Start 07/16/19 at 11:00; Stop 07/16/19 at 11:03; Status DC Ceftriaxone Sodium (Rocephin) 1 gm DAILY07 IVP ; Start 07/17/19 at 07:00; Stop 07/16/19 at 13:59; Status DC Azithromycin 250 ml @ 250 mls/hr DAILY07 IV ; Start 07/17/19 at 07:00; Status Cancel Sodium Chloride (Normal Saline Flush) 3 ml QSHIFT PRN IV AFTER MEDS AND BLOOD DRAWS; Start 07/16/19 at 11:00 Sodium Chloride 1,000 ml @ 100 mls/hr Q10H IV ; Start 07/16/19 at 10:53; Stop 07/16/19 at 12:57; Status DC Ondansetron HCl (Zofran) 4 mg PRN Q4HRS PRN IV NAUSEA/VOMITING; Start 07/16/19 at 11:00; Stop 07/17/19 at 10:29; Status DC Al Hydroxide/Mg Hydroxide (Mylanta Plus Xs) 30 ml PRN DAILY PRN PO HEARTBURN / GAS; Start 07/16/19 at 11:00 Clonidine HCl (Catapres) 0.1 mg PRN Q6HRS PRN PO SBP>160 OR DBP>90 Last administered on 07/19/19at 23:31; Start 07/16/19 at 11:00 Sodium Monofluorophosphate (Fleet Adult) 133 ml PRN DAILY PRN MO CONSTIPATION; Start 07/16/19 at 11:00 Docusate Sodium (Colace) 100 mg PRN BID PRN PO HARD STOOLS; Start 07/16/19 at 11:00 Albuterol/ Ipratropium (Duoneb) 3 ml Q4HRS NEB ; Start 07/16/19 at 12:00; Stop 07/16/19 at 14:10; Status DC Guaifenesin (Robitussin) 200 mg PRN Q4HRS PRN PO COUGH; Start 07/16/19 at 11:00 Enoxaparin Sodium (Lovenox 40mg Syringe) 40 mg Q24H SQ Last administered on 07/21/19at 11:52; Start 07/16/19 at 11:00 Ondansetron HCl (Zofran) 4 mg PRN Q8HRS PRN IV NAUSEA/VOMITING; Start 07/16/19 at 11:00; Stop 07/17/19 at 10:27; Status DC Sodium Chloride 1,000 ml @ 125 mls/hr Q8H IV ; Start 07/16/19 at 10:58; Stop 07/16/19 at 12:57; Status DC Insulin Human Lispro (HumaLOG) 0-7 UNITS TIDWMEALS SQ Last administered on 07/16/19at 18:00; Start 07/16/19 at 12:00; Stop 07/17/19 at 07:51; Status DC Dextrose (Dextrose 50%-Water Syringe) 12.5 gm PRN Q15MIN PRN IV SEE COMMENTS; Start 07/16/19 at 12:00; Status Cancel Sodium Chloride 1,000 ml @ 125 mls/hr Q8H IV Last administered on 07/20/19at 08:16; Start 07/16/19 at 13:00; Stop 07/20/19 at 11:01; Status DC Linezolid/Dextrose 300 ml @ 300 mls/hr Q12HR IV Last administered on 07/18/19at 20:37; Start 07/16/19 at 15:00; Stop 07/19/19 at 09:06; Status DC Piperacillin Sod/ Tazobactam Sod (Zosyn Per Pharmacy) 1 each PRN DAILY PRN MC SEE COMMENTS; Start 07/16/19 at 14:00; Status Cancel Piperacillin Sod/ Tazobactam Sod 2.25 gm/Sodium Chloride 50 ml @ 100 mls/hr Q6HRS IV Last administered on 07/17/19at 05:36; Start 07/16/19 at 14:00; Stop 07/17/19 at 07:52; Status DC Albuterol Sulfate (Ventolin Neb Soln) 2.5 mg PRN Q4HRS PRN NEB SHORTNESS OF BREATH Last administered on 07/18/19at 23:49; Start 07/16/19 at 14:15 Insulin Human Lispro (HumaLOG) 6 units 1X ONCE SQ Last administered on 07/16/19at 21:07; Start 07/16/19 at 21:30; Stop 07/16/19 at 21:31; Status DC Azithromycin 500 mg/Sodium Chloride 250 ml @ 250 mls/hr Q24H IV Last administered on 07/19/19at 06:23; Start 07/17/19 at 07:00; Stop 07/19/19 at 09:09; Status DC Acetaminophen/ Hydrocodone Bitart (Lortab 5/325) 1 tab PRN Q4HRS PRN PO MODERATE PAIN 4-6 Last administered on 07/17/19at 06:16; Start 07/17/19 at 06:15 Insulin Human Lispro (HumaLOG) 0-9 UNITS TIDACHC SQ Last administered on 07/20/19at 17:36; Start 07/17/19 at 11:30 Dextrose (Dextrose 50%-Water Syringe) 12.5 gm PRN Q15MIN PRN IV SEE COMMENTS; Start 07/17/19 at 08:00 Atorvastatin Calcium (Lipitor) 20 mg QHS PO Last administered on 07/17/19 21:18; Start 07/17/19 at 21:00; Stop 07/18/19 at 12:04; Status DC Insulin Human Lispro (HumaLOG) 8 units TIDWMEALS SQ Last administered on 07/21/19 11:59; Start 07/17/19 at 08:00 Insulin Glargine (Lantus Syringe) 28 unit QHS SQ Last administered on 07/20/19 21:26; Start 07/17/19 at 21:00 Aspirin (Aspirin Chewable) 81 mg DAILYWBKFT PO Last administered on 07/21/19 08:23; Start 07/17/19 at 08:00 Piperacillin Sod/ Tazobactam Sod 2.25 gm/Sodium Chloride 50 ml @ 100 mls/hr Q8H IV Last administered on 07/19/19 05:11; Start 07/17/19 at 14:00; Stop 07/19/19 at 09:06; Status DC Ondansetron HCl (Zofran) 4 mg PRN Q4HRS PRN IV NAUSEA/VOMITING; Start 07/17/19 at 10:30 Lidocaine (Lidoderm) 1 patch DAILY TD Last administered on 07/17/19 13:18; Start 07/17/19 at 10:30 Cyclobenzaprine HCl (Flexeril) 10 mg PRN Q6HRS PRN PO MUSCLE SPASMS; Start 07/17/19 at 10:30 Miscellaneous (Lidoderm Patch Removal) 1 ea QHS MC Last administered on 07/18/19at 21:00; Start 07/17/19 at 21:00 Lactobacillus Rhamnosus (Culturelle) 1 cap BID PO Last administered on 07/21/19 08:23; Start 07/18/19 at 21:00 Acetaminophen (Tylenol) 650 mg PRN Q6HRS PRN PO FEVER > 100.3'F Last administered on 07/19/19at 00:51; Start 07/19/19 at 00:45 Levofloxacin (Levaquin) 750 mg ONCE ONCE PO Last administered on 6/10/20at 09:23; Start 07/19/19 at 10:00; Stop 07/19/19 at 10:01; Status DC Amlodipine Besylate (Norvasc) 10 mg DAILY PO Last administered on 07/21/19at 08:24; Start 07/19/19 at 12:15 Levofloxacin (Levaquin) 500 mg DAILY06 PO Last administered on 07/21/19at 05:59; Start 07/20/19 at 11:00; Stop 07/21/19 at 08:39; Status DC Sodium Bicarbonate 50 meq/Sodium Chloride 1,050 ml @ 150 mls/hr Q7H IV Last administered on 07/21/19at 04:28; Start 07/20/19 at 11:00; Stop 07/21/19 at 10:22; Status DC Potassium Chloride (Klor-Con) 40 meq 1X ONCE PO Last administered on 07/21/19at 07:50; Start 07/21/19 at 06:45; Stop 07/21/19 at 06:49; Status DC Levofloxacin (Levaquin) 750 mg DAILY06 PO ; Start 07/22/19 at 06:00 Levofloxacin (Levaquin) 250 mg DAILY06 PO ; Start 07/22/19 at 06:00; Status Cancel Potassium Chloride (Klor-Con) 20 meq 1X ONCE PO Last administered on 07/21/19at 10:42; Start 07/21/19 at 10:30; Stop 07/21/19 at 10:31; Status DC Carvedilol (Coreg) 3.125 mg BIDWMEALS PO Last administered on 07/21/19at 11:53; Start 07/21/19 at 11:00 Magnesium Sulfate 100 ml @ 25 mls/hr 1X ONCE IV Last administered on 07/21/19at 12:13; Start 07/21/19 at 11:30; Stop 07/21/19 at 15:29 Active Scripts Active Glucophage (Metformin Hcl) 500 Mg Tablet 500 Mg PO BIDWMEALS Prinivil (Lisinopril) 5 Mg Tablet 10 Mg PO DAILY Levemir Flextouch (Insulin Detemir) 300 Units/3 Ml Insuln.pen 28 Units SQ QHS Novolog Flexpen (Insulin Aspart) 300 Units/3 Ml Insuln.pen 18 Units SQ TIDAC [Aspirin] 81 MG Tablet.dr 81 Mg PO DAILYWBKFT Lipitor (Atorvastatin Calcium) 20 Mg Tablet 20 Mg PO QHS Vitals/I & O Vital Sign - Last 24 Hours 07/20/19 07/20/19 07/20/19 07/20/19 15:02 19:00 20:15 23:02 Temp 97.9 99.5 98.7 97.9 99.5 98.7 Pulse 86 96 91 Resp 18 20 18 B/P (MAP) 137/109 (118) 168/107 (127) 159/74 (102) Pulse Ox 93 91 95 O2 Delivery Room Air Room Air Room Air Room Air 07/21/19 07/21/19 07/21/19 07/21/19 03:03 08:00 08:00 08:24 Temp 98.7 98.1 98.7 98.1 Pulse 87 83 83 Resp 20 18 B/P (MAP) 169/86 (113) 176/101 (126) 179/110 Pulse Ox 92 92 O2 Delivery Room Air Room Air Room Air 07/21/19 11:53 Pulse 89 B/P (MAP) 179/100 Intake and Output 07/20/19 07/20/19 07/21/19 15:00 23:00 07:00 Intake Total 1600 ml 400 ml 4080 ml Output Total 750 ml 2500 ml Balance 850 ml 400 ml 1580 ml ALLISON FIGUEROA MD Jul 21, 2019 14:36
[2019-07-21 15:00] VITALS: BP 162/97
--- NOTE | 2019-07-21 16:50 | NUR ---
Discharge Note: Patient was discharged home with self care. Patients girlfriend at bedside at the time of discharge education. Patients IV's were discontinued without any complications per RN. Patient was given discharge summary/instructions, follow-ups, and educational material. Patients prescriptions were sent to patients preferred pharmacy. Patient did not have any further questions or concerns. Patient was taken down to the main entrance via wheelchair with all personal belongings accompanied by JENNY Farnsworth, where his girlfriend was waiting for him to take him home.
== END 2019-07-21 16:00 | disposition home or self-care (01) | DRG 871 ==
LOC: ER 09:42 → 1 WEST ICU 10:20 → 2 SOUTH 07-17 19:48 → 4 NORTH 07-20 11:54
PROVIDERS: ADMIT Family Medicine; ATTEND Family Medicine
DX: A41.9 Sepsis, unspecified organism (principal); J96.01 Acute respiratory failure with hypoxia; G93.41 Metabolic encephalopathy; N17.0 Acute kidney failure with tubular necrosis; A48.1 Legionnaires' disease; E87.1 Hypo-osmolality and hyponatremia; M62.82 Rhabdomyolysis; I50.32 Chronic diastolic (congestive) heart failure; I11.0 Hypertensive heart disease with heart failure; E83.42 Hypomagnesemia; E11.9 Type 2 diabetes mellitus without complications; E66.9 Obesity, unspecified; E87.6 Hypokalemia; G47.30 Sleep apnea, unspecified; Z20.828 Contact with and (suspected) exposure to other viral communicable diseases; E78.5 Hyperlipidemia, unspecified; R79.89 Other specified abnormal findings of blood chemistry; E78.1 Pure hyperglyceridemia; F17.210 Nicotine dependence, cigarettes, uncomplicated; K76.0 Fatty (change of) liver, not elsewhere classified; R65.20 Severe sepsis without septic shock; Z82.49 Family history of ischemic heart disease and other diseases of the circulatory system; Z83.3 Family history of diabetes mellitus; Z68.33 Body mass index [BMI] 33.0-33.9, adult
CPT/HCPCS: 36415; 71045; 71250; 76770; 80048; 80053; 80061; 81001; 82550; 82962; 83605; 83615; 83690; 83735; 83880; 84100; 84145; 84484; 85007; 85025; 85027; 85379; 85384; 85610; 85730; 86140; 86738; 87040; 87086; 87449; 93005; 93306; 93970; 94618; 94640; 94760; 96365; 96375; 99291; J0456; J0696; J1650; J1815; J2020; J2543; J3475; J3490; J7030; J7050; 97110-GP; 97116-GP; 97530-GO; 97535-GO; G0378; J7613; U0003-CS

== ENCOUNTER → 2019-07-26 | Outpatient (CLI) | payer OTHER ==
[2019-07-21 15:00] VITALS: BP 162/97
[~2019-07-26] MED LIST changes: +AMLO10TA8 PO; +CARV3.12 PO; +LEVO750T31 PO; +POTA10TA17 PO
[2019-07-26 09:14] LABS: BASO # 0.2 x10^3/uL (0.0-0.2); BASO % 1 % (0-3); EOS # 0.2 x10^3/uL (0.0-0.7); EOS % 1 % (0-3); HEMOGLOBIN 13.8 g/dL (13.0-17.5); LYMPH # 1.8 x10^3/uL (1.0-4.8); LYMPH % 11 % (24-48); MEAN CORPUSCULAR HEMOGLOBIN 31 pg (25-35); MEAN CORPUSCULAR HGB CONC 34 g/dL (31-37); MEAN CORPUSCULAR VOLUME 91 fL (79-100); MONO # 0.9 x10^3/uL (0.0-1.1); MONO % 6 % (0-9); NEUT # 13.5 x10^3/uL (1.8-7.7); NEUT % 81 % (31-73); PLATELET COUNT 535 x10^3/uL (140-400); RED BLOOD COUNT 4.49 x10^6/uL (4.30-5.70); WHITE BLOOD COUNT 16.6 x10^3/uL (4.0-11.0)
[2019-07-26 09:29] LABS: ALBUMIN 2.6 g/dL (3.4-5.0); ALBUMIN/GLOBULIN RATIO 0.6 (1.0-1.7); CALCIUM 9.2 mg/dL (8.5-10.1); CREATININE 1.8 mg/dL (0.7-1.3); POTASSIUM 4.5 mmol/L (3.5-5.1); TOTAL BILIRUBIN 0.4 mg/dL (0.2-1.0); TOTAL PROTEIN 7.2 g/dL (6.4-8.2)
[2019-07-26 09:46] LABS: % EOS 2 % (0-5); % LYMPHS 14 % (24-48); % MONOS 3 % (0-10); % SEGS 81 % (35-66); PLT ESTIMATE INCREASED (ADEQUATE)
== END ==
LOC: LAB 08:55
PROVIDERS: ATTEND Orthopaedic Surgery
DX: N17.9 Acute kidney failure, unspecified (principal)
CPT/HCPCS: 36415; 80053; 82550; 85007; 85025